=== PATIENT | male | born 1960 | race Caucasian/White ===

== ENCOUNTER 2024-01-05 09:15 | Inpatient (IN) ==
--- NOTE | 2024-01-05 09:27 | Emergency Department Note ---
Impression & Plan Acute renal failure, Pleural effusion, right, Sepsis, Atrial fibrillation with rapid ventricular response, Elevated troponin ED Provider Note NAME: MAXIMO [id number] BRINDA AGE: 63 SEX: M : 1960 ARRIVES VIA: Ambulance INFORMANT: Patient, EMS ED PROVIDER(S): Aguilar Jeong DO CHIEF COMPLAINT: Weakness HPI: The patient is a 63-year-old male who presented to the emergency department for generalized weakness. The patient was noted to have shortness of breath and palpitations. He states that the symptoms began over the course the last few days. He has no history of atrial fibrillation. He denies having any black or tarry stools. He denies having any chest pain or difficulty breathing. The patient was found to be in rapid atrial fibrillation. He was treated with normal saline at 1500 mL prior to arrival. His blood pressure was low initially but is improved since the IV fluid bolus. ROS: See above HPI for pertinent positives & negatives. A total of 10 systems reviewed and were otherwise negative. PAST MEDICAL HISTORY: See Below PAST SURGICAL HISTORY: See Below FAMILY HISTORY: See Below SOCIAL HISTORY: See Below HOME MEDICATIONS: See Below ALLERGIES: See Below VITALS: See Below PHYSICAL EXAMINATION: GENERAL: Patient is awake alert in no acute distress patient is resting comfortably and showing no signs of anxiety EYES: The conjunctivae are clear. The pupils are round and reactive. EARS, NOSE, MOUTH AND THROAT: The nose is without any evidence of any deformity. Mucous membranes are dry. NECK: The neck is nontender and supple. RESPIRATORY: Normal respiratory effort is noted there is no evidence of wheezing rhonchi or rales CARDIOVASCULAR: Regular rate and rhythm noted there no murmurs rubs or gallops normal S1 normal S2. GASTROINTESTINAL: The abdomen is soft. Abdomen is nontender. MUSCULOSKELETAL/EXTREMITIES: There is no evidence of gross deformity full range of motion is noted in the hips and shoulders. SKIN: There is no obvious evidence of any rash. There are no petechiae, pallor or cyanosis noted. NEUROLOGIC: Patient is awake alert and oriented x3 MEDICAL DECISION MAKING: The patient is a 63-year-old male who presented to the emergency department for an evaluation of fast heart rate and hypotension. The patient was treated with multiple fluid boluses in the emergency department. He was treated with ideal body weight IV fluids for sepsis resuscitation plus excess fluids because of an elevated lactate level. I discussed the patient's laboratory and radiographic studies with him. He was found to have an elevated white blood cell count. He was treated with IV antibiotics. Chest x-ray showed a large right pleural effusion. This could also represent an infiltrate. The patient did not have any abdominal pain on physical exam. EKG showed nonspecific changes and troponin was elevated. I discussed the patient's condition with the on-call [facility]ist. They have agreed to evaluate the patient in the emergency department for further management and disposition. Vital signs continue to improve while he was in the emergency department. Triage Nursing notes reviewed. Prior medical records reviewed Vital Signs: reviewed and remarkable for tachycardia and initial hypotension. Differential diagnosis: Infection, dehydration, metabolic abnormality, hypo/hyperglycemia, electrolyte disturbance, anemia, hypoxia, cardiac sources, intracerebral event, toxicologic, neurologic, as well as other pathologies. ER treatment provided: See below Diagnostics interpreted by me: ECG: EKG was obtained in the emergency department. My interpretation is atrial fibrillation with RVR at 126 bpm. There were no PVCs noted. Nonspecific ST segment abnormalities were noted. No previous tracing was available in our facility. An EKG that was done at [place] was reviewed. My interpretation is atrial fibrillation with RVR at [address] segment abnormalities were noted. This compares similar to the tracing obtained in the emergency department. Cardiac Monitoring: An order was placed for continuous cardiac monitoring. The monitor shows a rate of 128 bpm with atrial fibrillation and RVR. Laboratory studies: As stated above and show below. Imaging studies: See below. Radiographic imaging was reviewed by myself Consultation(s): I discussed this case with Loyd who is [facility] for [facility]. ED COURSE: Procedures: none Critical Care: I have personally spent greater than 45 minutes of critical care time in the direct management of this patient. This includes bedside care, interpretation of diagnostic studies, and testing, discussion with consultants, patient, and family members, and other required patient management activities. This 45 minutes is in excess of all separately billable procedures. Past Med/Surg History Problem List (Updated 01/05/24 @ 12:46 by Aguilar Jeong DO) Acute renal failure (Acute) Pleural effusion, right (Acute) Adjustment disorder DM II (diabetes mellitus, type II), controlled Acute renal failure Elevated troponin (Acute) Atrial fibrillation with rapid ventricular response (Acute) High anion gap metabolic acidosis Sepsis (Acute) Medical History Anxiety disorder Type 2 diabetes mellitus Social History Smoking Status: Former smoker Preferred Language: Qatari Feels Safe at Home: Yes Results & Data (ED) Vital Signs Vital Signs - 24 hr 01/05/24 09:27 01/05/24 09:36 01/05/24 09:36 Pulse Rate 129 H 96 H Pulse Rate [Apical] Respiratory Rate 18 18 Blood Pressure [Left Arm] Blood Pressure Mean [Left Arm] Pulse Oximetry 96 Oxygen Delivery Method Room Air Sepsis Recent Fever Within 48 Hours Sepsis New/Unexplained Change in Mental Status Sepsis Action Taken by Nursing 01/05/24 09:37 01/05/24 09:48 01/05/24 09:48 Pulse Rate Pulse Rate [Apical] 128 H Respiratory Rate 18 12 Blood Pressure [Left Arm] 123/67 Blood Pressure Mean [Left Arm] 85 Pulse Oximetry 93 Oxygen Delivery Method Room Air Room Air Sepsis Recent Fever Within 48 Hours No Sepsis New/Unexplained Change in Mental Status N/A Sepsis Action Taken by Nursing No Action Required Home Medications Current Medication List: was personally reviewed by me Laboratory Data Attestation: I reviewed the patient's lab results. 01/05/24 09:32 01/05/24 09:32 Lab Results 01/05/24 01/05/24 01/05/24 Range/Units 09:32 09:45 09:54 WBC 20.11 H (4.8-10.8) K/ul RBC 4.11 L (4.70-6.10) M/uL Hgb 12.0 L (14.0-18.0) g/dl Hct 35.8 L (42.0-52.0) % MCV 87.1 (80.0-100.0) fL MCH 29.2 (25.0-34.0) pg MCHC 33.5 (32.0-36.0) g/dL RDW Std Deviation 42.2 (36.4-46.3) fL RDW Coeff of Aly 13.3 (11.5-14.5) % Plt Count 356 (130-400) K/uL MPV 10.1 (9.4-12.4) fL Immature Gran % (Auto) 1.7 % Neut % (Auto) 87.6 % Lymph % (Auto) 4.8 % [place] % (Auto) 5.8 % Eos % (Auto) 0.0 % Baso % (Auto) 0.1 % Neut # (Auto) 17.60 H (1.40-6.50) K/uL Lymph # (Auto) 0.97 L (1.20-3.40) K/uL [place] # (Auto) 1.17 H (0.11-0.59) K/uL Eos # (Auto) 0.01 (0.00-0.50) K/uL Baso # (Auto) 0.02 (0.00-0.20) K/uL Immature Gran # (Auto) 0.34 H (0.01-0.20) K/uL PT 12.5 H (9.0-12.0) Seconds INR 1.2 H (0.9-1.1) APTT 26 (21-31) Seconds PTT Ratio 1.0 VBG pH 7.36 (7.36-7.41) VBG pCO2 25 L (38-50) mmHg VBG pO2 21 mmHg VBG HCO3 14 mmol/L VBG O2 Saturation < 60.0 % VBG Base Excess -9.6 mEq/L Sodium 133 L (136-145) mmol/L Potassium 4.6 (3.5-5.1) mmol/L Chloride 94 L (98-107) mmol/L Carbon Dioxide 12 L (21-32) mmol/L Anion Gap 27 H (3-11) BUN 74 H (6-23) mg/dl Creatinine 3.98 H (0.6-1.4) mg/dl Est Cr Clr Drug Dosing 17.7 ml/min Est GFR ( Amer) 17.2 ml/min Est GFR (Non-Af Amer) 14.8 ml/min BUN/Creatinine Ratio 18.6 (10-20) Glucose 253 H (70-99(Fasting)) mg/dl Lactate 10.0 H* (0.4-2.0) mmol/L Calcium 8.1 L (8.6-10.3) mg/dl Magnesium 2.7 H (1.7-2.4) mg/dl Total Bilirubin 0.9 (0.2-1.0) mg/dl Direct Bilirubin 0.3 H (0-0.2) mg/dl AST 132 H (13-39) U/L ALT 44 (7-52) U/L Alkaline Phosphatase 117 H (34-104) U/L Troponin I High Sens 57.7 H* (0-20) pg/ml Total Protein 6.6 (6.0-8.3) gm/dl Albumin 2.6 L (3.4-5.0) gm/dl SARS-CoV-2 (PCR) NEGATIVE (Negative) Influenza Type A (PCR) Negative (Neg) Influenza Type B (PCR) Negative (Neg) RSV (RT-PCR) Negative (Neg) Administered Medications Discontinued Medications Sodium Chloride (Nss) 1,000 mls @ 999 mls/hr IV .Q1H1M ONE Stop: 01/05/24 10:23 Last Admin: 01/05/24 09:51 Dose: 999 mls/hr Documented By: TOOTIE Sodium Chloride (Nss) 1,000 mls @ 999 mls/hr IV .Q1H1M ONE Stop: 01/05/24 10:55 Last Admin: 01/05/24 10:11 Dose: 999 mls/hr Documented By: TOOTIE Piperacillin Sod/Tazobactam Sod (Zosyn) 4.5 gm in 100 mls @ 200 mls/hr IV NOW ONE Stop: 01/05/24 10:24 Last Admin: 01/05/24 10:11 Dose: 200 mls/hr Documented By: TOOTIE Imaging Data Attestation: I personally reviewed and interpreted this imaging study as follows: My Impression: 1 view chest x-ray was obtained in the emergency department. My interpretation is large right pleural effusion, final report below. Radiologist's Impression: Chest X-Ray 01/05/24 09:23 XR chest 1V portable CLINICAL HISTORY: Sepsis TECHNIQUE: Single frontal radiograph of the chest was obtained. Comparison: None available at the time of this dictation. FINDINGS: No lines and tubes are seen. Cardiomegaly is noted. Right sided airspace opacities are seen. Moderate right pleural effusion is seen. IMPRESSION: Moderate right pleural effusion is seen. Right airspace opacity is seen likely representing atelectasis with or without superimposed aspiration/pneumonia. ACT 112: Negative or not required by law. Electronically signed by: Andrea Guillermo M.D. 01/05/2024 9:41 AM Discharge Plan Visit Data Chief Complaint: Cardiac Assessment ED Provider: Aguilar Jeong Discharge Problem: Acute renal failure, Pleural effusion, right, Sepsis, Atrial fibrillation with rapid ventricular response, Elevated troponin Patient Disposition: Being Evaluated by Hospitalist Discharge Problem: Acute renal failure Qualifiers: Acute renal failure type: unspecified Qualified Code(s): N17.9 - Acute kidney failure, unspecified Sepsis Qualifiers: Sepsis type: sepsis due to unspecified organism Sepsis acute organ dysfunction status: unspecified Qualified Code(s): A41.9 - Sepsis, unspecified organism
--- NOTE | 2024-01-05 09:43 | XRay Report ---
XR chest 1V portable CLINICAL HISTORY: Sepsis TECHNIQUE: Single frontal radiograph of the chest was obtained. Comparison: None available at the time of this dictation. FINDINGS: No lines and tubes are seen. Cardiomegaly is noted. Right sided airspace opacities are seen. Moderate right pleural effusion is seen. IMPRESSION: Moderate right pleural effusion is seen. Right airspace opacity is seen likely representing atelectas is with or without superimposed aspiration/pneumonia. ACT 112: Negative or not required by law. Electronically signed by: Andrea Guillermo M.D. 01/05/2024 9:41 AM
[2024-01-05] MEDS: SODIUM CHLORIDE 0.9% 1,000 ML IV ONE ×3 (09:51→13:11)
[2024-01-05 09:55] LABS: Basophils # (auto) 0.02 K/uL (0.00-0.20); Basophils % (auto) 0.1 %; Eosinophils # (auto) 0.01 K/uL (0.00-0.50); Hematocrit (blood only) 35.8 % (42.0-52.0); Immature Granulocytes # (auto) 0.34 K/uL (0.01-0.20); Immature Granulocytes % (auto) 1.7 %; Lymphocytes # (auto) 0.97 K/uL (1.20-3.40); Lymphocytes % (auto) 4.8 %; Mean Corpuscular Hemoglobin 29.2 pg (25.0-34.0); Mean Corpuscular Hgb Conc 33.5 g/dL (32.0-36.0); Mean Corpuscular Volume 87.1 fL (80.0-100.0); Mean Platelet Volume 10.1 fL (9.4-12.4); Monocytes # (auto) 1.17 K/uL (0.11-0.59); Monocytes % (auto) 5.8 %; Neutrophils % (auto) 87.6 %; Platelet Count 356 K/uL (130-400); RDW Coefficient of Variation 13.3 % (11.5-14.5); RDW Standard Deviation 42.2 fL (36.4-46.3); Red Blood Count 4.11 M/uL (4.70-6.10); White Blood Count 20.11 K/ul (4.8-10.8)
[2024-01-05 10:08] LABS: Base Excess VBG -9.6 mEq/L; HCO3 VBG 14 mmol/L; Oxygen Saturation VBG < 60.0 %; PCO2 VBG 25 mmHg (38-50); PO2 VBG 21 mmHg; pH VBG 7.36 (7.36-7.41)
[2024-01-05] MEDS: PIPERACILLIN/TAZOBACTAM 4.5 GM/100 ML BAG IV ONE (10:11)
[2024-01-05 10:21] LABS: INR 1.2 (0.9-1.1); Partial Thromboplastin Time 26 Seconds (21-31); Prothrombin Time 12.5 Seconds (9.0-12.0)
[2024-01-05 10:30] LABS: Albumin Level 2.6 gm/dl (3.4-5.0); BUN Creatinine Ratio 18.6 (10-20); Bilirubin,Total 0.9 mg/dl (0.2-1.0); Calcium 8.1 mg/dl (8.6-10.3); Creatinine Clr Calc Pharmacy 17.7 ml/min; Est GFR (African American) 17.2 ml/min; Est GFR (Non-African American) 14.8 ml/min; Magnesium 2.7 mg/dl (1.7-2.4); Potassium 4.6 mmol/L (3.5-5.1); Total Protein 6.6 gm/dl (6.0-8.3)
[2024-01-05 10:39] LABS: Influenza A virus by PCR Negative (Neg); Influenza B virus by PCR Negative (Neg); RSV by PCR Negative (Neg); SARS CoV2 RNA(COVID-19) Ceph NEGATIVE (Negative)
[2024-01-05 10:41] LABS: Troponin I High Sensitivity 57.7 pg/ml (0-20)
[2024-01-05 10:45] LABS: Bilirubin Direct 0.3 mg/dl (0-0.2)
--- NOTE | 2024-01-05 11:13 | History & Physical Report ---
Date of Service January 05, 2024 Assessment & Plan (1) Sepsis: Plan: -Admit to the PCU on tele and pulse oximetry -Currently hemodynamically stable, with HR in the low 100's, and otherwise stable at the time of the admission -Presented to the [facility] ED from [facility] due to multiple days of poor oral intake, hyperglycemia, and generalized weakness this am -Found to be in new onset atrial fibrillation with HR in the 120's, with WBC of 20, with possible right airspace opacity on CXR -Initial lactate of 10 -->4.2 after 3.5 L NSS given between EMS and the ED -Procal is currently in process -Cannot rule out intra abdominal sources of infection at this time >Will obtain STAT CT of the abd/pelvis wo con for further assessment >No meningitic symptoms >No signs of skin infection -Patient has been unable to give a urine sample at this time, bladder scanned for 200 mL at the time of admission, will obtain UA when patient is able to give sample or with straight cath if needed -S/P one dose of Zosyn in the ED, will continue with Zosyn for now -Follow blood cultures obtained in the ED -Will be starting IV heparin drip for new onset afib/covers DVT PPX as well -NPO until CT of the abd/pelvis is back -Will repeat CMP, mag, and obtain ABG in approximately 3 hours for re- evaluation, if he is not improving or becoming more acidic will speak with the Fast Food Attendant -AM CBC, CMP, mag, PT/INR (2) High anion gap metabolic acidosis: Plan: -AG of 27, bicarb of 12 -Initial lactate of 10 -VBG in the ED with pH of 7.36, pCO2 of 25, and pO2 of 21 -Likely due to sepsis, dehydration, and acute renal failure -Will follow UA when obtained to monitor for signs of ketosis -Patient has received approximately 3.5L NSS between EMS transport and while in the ED -Repeat lactate improving to 4.2 -Will hold additional IV fluids until CT of the abd/pelvis is read as we do not want to volume overload him if he is in acute renal failure -Will continue to monitor lactate until he is stable (3) Acute renal failure: Plan: -Cr of 3.98 today, last base is 0.95 as of 2021 per [facility]'s labs -Patient had not been able to urinate since arrival, confirms this is not normal for him -Bladder scan at the time of admission was 200 cc -Electrolytes are currently stable, no indication for emergent/urgent dialysis at the time of admission -Patient did have some recent right flank pain with possible right CVA tenderness on exam -Will obtain stat CT of the abd/pelvis wo con at the time of admission to monitor for obstruction -Will monitor intake/output q6h -Will hold additional IV fluids until CT of the abd/pelvis is read in case he has an obstruction -If needed, will speak to the patient again regarding possible cali placement -Nephrology consult placed -Avoid nephrotoxic agents -Will monitor repeat labs this afternoon -Will trend BMP, mag, and blood gases overnight if not improving on repeat this afternoon (4) Atrial fibrillation with rapid ventricular response: Plan: -Patient found to be in new-onset afib RVR with HR in the 120's on arrival -Potassium of 4.6, mag of 2.7 -Will add on TSH level -Likely due to his acute illness and renal failure -HR is currently stable in the low 100's at the time of exam, will not be overly aggressive with rate reduction on admission to avoid suppressing his reactive tacycardia with sepsis -Will start PRN 5 mg IV Lopressor q5m PRN sustained HR > 130 BPM for now, max 3 doses -Patient will be started on low dose, weight based heparin drip wo bolus for anticoagulation -Will order Cardiology consult and TTE on admission (5) Pleural effusion, right: Plan: -Patient noted to have a moderate right pleural effusion on CXR today -Possible associated airspace opacity as well -Currently in no respiratory distress and stable on RA -Unsure of etiology at this time, will place Pulmonology consult for assistance with ongoing workup/treatment -Continue incentive spirometry,flutter therapy, prn O2 to keep SpO2 at or above 94% (6) Elevated troponin: Plan: -Initial high sen trop elevated at 57 -Patient is without chest pain or acute ST segment/T-wave changes on ECG -Likely due to demand with sepsis, acute renal failure, and afib RVR on arrival -2 hour repeat high sen trop is in process -Will continue to monitor on tele, continue to trend high sen trop q6h overnight -Will follow cardiology consult and TTE ordered on admission (7) DM II (diabetes mellitus, type II), controlled: Plan: -Normally takes 15 units SQ Novolin R in the am with SSI -Did have his am dose of basal insulin prior to arrival -Will start q6h BSG checks, goal is 110-160 for now -Start CF of 50 and CR 15 for now -Will hold basal insulin with acute renal failure -Keeping NPO until CT of abd/pelvis is read -Pharmacy glycemic consult has been place due to patient's multiple acute abnormalities on admission Plan The patient was discussed with Dr. Trinidad at the time of the admission History of Present Illness Chief Complaint: Generalized weakness, SOB Primary Care Provider: [facility] Scotty is a 63-year-old male inmate at [facility] with a PMH significant for DMII and adjustment disorder who presented to the [facility] ED on 01/05/2024 with complaints of generalized weakness and shortness of breath. On arrival to the emergency department he was noted to be tachycardic with heart rate in the 120's but otherwise stable. Labs were significant for a leukocytosis of 20 with neutrophil predominance of 17, INR 1.2, VBG pH of 7.36 With pCO2 25-21, creatinine of 3.98 (last known baseline per [facility] is 0.95 as of 2021), BUN of 74, anion gap of 27 with bicarb of 12, potassium and sodium within normal limits, initial lactate of 10, magnesium 2.7, AST of 32, alk phos 117, initial high-sensitivity troponin COVID- 19/influenza/RSV screens negative. In the emergency department the patient was given 2 L normal saline and a dose of Zosyn. Patient was lying in bed in no acute distress at the time of exam. States that he has been having increased glucose levels and poor oral intake over the past 72 hours. [place] generally weak this a.m., also noted shortness of breath. When asked, he denies recent fever/chills, chest pain, productive cough, nausea/vomiting, abdominal pain, dysuria, hematuria, diarrhea bloody bowel lower extremity swelling, and recent trauma. He did note right back/flank pain yesterday,he is currently asymptomatic. He denies a previous history of atrial fibrillation, and notes that normally he is able to urinate without issue but has noticed that it is is not have the urge to void today. He denies history of major bleeding and is in agreement with IV heparin drip atrial fibrillation. I called and spoke to the infirm[facility] at the [facility], they confirmed that his past medical history consists of type 2 diabetes mellitus and adjustment disorder. They state that this morning after receiving his insulin, he became very weak and pale which is why he was brought to the emergency department. Per the records, his baseline creatinine is 0.95 as of 2021. Please refer to Dr. Trinidad's attestation for any changes to treatment plan. Allergies Allergy/AdvReac Type Severity Reaction Status Date / Time Fish Containing Products Allergy Anaphylaxis Verified 01/05/24 12:50 metformin AdvReac Anaphylaxis Verified 01/05/24 12:48 Home Medications Medication Instructions Recorded Confirmed Type Novolin R 100u 15 unit subcut DAILY 01/05/24 01/05/24 History Novolin R Regular U100 Insulin 1 unit subcut .SLIDING SCALE PRN 01/05/24 01/05/24 History Other aspirin 81 mg tablet,delayed 81 mg PO DAILY 01/05/24 01/05/24 History release mirtazapine 30 mg tablet 30 mg PO HS 01/05/24 01/05/24 History rosuvastatin 20 mg tablet 20 mg PO DAILY 01/05/24 01/05/24 History Past Med/Surg History Problem List (Updated 01/05/24 @ 19:07 by Kaushik Whatley MD) Urinary retention Acute renal failure (Acute) Pleural effusion, right (Acute) Adjustment disorder DM II (diabetes mellitus, type II), controlled Acute renal failure Elevated troponin (Acute) Atrial fibrillation with rapid ventricular response (Acute) High anion gap metabolic acidosis Sepsis (Acute) Medical History Anxiety disorder Type 2 diabetes mellitus Social History Smoking Status: Former smoker Tobacco Type: Cigarettes Second Hand Exposure: Yes; Hx Alcohol Use: No Hx Substance Use: No Preferred Language: Citizen Of [place] Current Living Situation: Other Current Living Situation Comment: [facility] Feels Safe at Home: Yes Physical Exam Physical Exam: Physical Exam: General: In no acute distress, stated age, ill appearing but non-toxic a ppearing HEENT: Normocephalic, atraumatic, no scleral icterus, pupils around round, symmetrical, and reactive to light, dry mucus membranes, no jvd, trachea midline, no thyromegaly Chest/Pulm: No respiratory distress, symmetrical chest expansion, decreased breath sounds in the right lower/mid lung erickson but is otherwise CTA throughout Cardiac: irregular rate and rhythm, no murmurs noted Abdomen: Negative for ascites and bruising, normoactive bowel sounds, soft, mildly tender in the RUQ with equivocal moran's sign : Patient with + right CVA tenderness,negative left Musculoskeletal: Symmetrical and without signs of acute trauma, upper and lower extremities with full ROM, no atrophy, spasticity, or flaccidity Extremities: Radial, dorsalis pedis, and posterior tibial pulses are intact and symmetrical, no edema noted in the BL LE's Skin: Warm, dry, no rashes , lesions, or scars noted Neuro: Alert and oriented to person, place, month, year, and president, no focal defects, no tremors noted Psych: No acute distress, polite, calm and cooperative during the exam Results & Data Results & Data Vital Signs (Past 12 Hours) Vital Signs Pulse Pulse Resp BP Pulse Ox O2 Del Method 01/05/24 09:48 128 H 12 123/67 93 Room Air 01/05/24 09:48 Room Air 01/05/24 09:37 18 01/05/24 09:36 18 01/05/24 09:36 96 H 18 96 Room Air 01/05/24 09:27 129 H Laboratory Results Abnormal lab results 01/05/24 01/05/24 01/05/24 Range/Units 09:32 09:54 11:45 WBC 20.11 H (4.8-10.8) K/ul RBC 4.11 L (4.70-6.10) M/uL Hgb 12.0 L (14.0-18.0) g/dl Hct 35.8 L (42.0-52.0) % Neut # (Auto) 17.60 H (1.40-6.50) K/uL Lymph # (Auto) 0.97 L (1.20-3.40) K/uL [place] # (Auto) 1.17 H (0.11-0.59) K/uL Immature Gran # (Auto) 0.34 H (0.01-0.20) K/uL PT 12.5 H (9.0-12.0) Seconds INR 1.2 H (0.9-1.1) VBG pCO2 25 L (38-50) mmHg Sodium 133 L (136-145) mmol/L Chloride 94 L (98-107) mmol/L Carbon Dioxide 12 L (21-32) mmol/L Anion Gap 27 H (3-11) BUN 74 H (6-23) mg/dl Creatinine 3.98 H (0.6-1.4) mg/dl Glucose 253 H (70-99(Fasting)) mg/dl Lactate 10.0 H* 4.2 H* (0.4-2.0) mmol/L Calcium 8.1 L (8.6-10.3) mg/dl Magnesium 2.7 H (1.7-2.4) mg/dl Direct Bilirubin 0.3 H (0-0.2) mg/dl AST 132 H (13-39) U/L Alkaline Phosphatase 117 H (34-104) U/L Troponin I High Sens 57.7 H* (0-20) pg/ml Albumin 2.6 L (3.4-5.0) gm/dl Diagnostic Findings Chest X-Ray 01/05/24 09:23 XR chest 1V portable CLINICAL HISTORY: Sepsis TECHNIQUE: Single frontal radiograph of the chest was obtained. Comparison: None available at the time of this dictation. FINDINGS: No lines and tubes are seen. Cardiomegaly is noted. Right sided airspace opacities are seen. Moderate right pleural effusion is seen. IMPRESSION: Moderate right pleural effusion is seen. Right airspace opacity is seen likely representing atelectasis with or without superimposed aspiration/pneumonia. ACT 112: Negative or not required by law. Electronically signed by: Andrea Guillermo M.D. 01/05/2024 9:41 AM ECG Additional Comments: Atrial fibrillation with rapid ventricular response Low voltage QRS Cannot rule out Anterior infarct , age undetermined Abnormal ECG No previous ECGs available Code Status & VTE Plan Code Status Full code VTE Prophylaxis Plan VTE Prophylaxis will be ordered: Yes Critical Care Time Critical Care Time: Yes Total Critical Care Time: 48 120 Supervising Physician Co-Signing Physician Notes During face to face encounter, I obtained a history and physical examination, discussed plan of care with patient and answered any questions. I discussed plan of care with USHA Velez. I reviewed above note and agree with it except for the following: Patient will be admitted to the ICU for concern over possible empyema. Patient placed on IV antibiotics: zosyn Patient with a fib RVR, high anion gap metabolic acidosis. Patient with acute hypoxic respiratory failure. Plan is as discussed above. Please refer to orders for further planning. 48 minutes of critical care time spent in the management clinical coronation care of this patient today this critical care time spent independent of and in addition to any other time or critical care time any other practitioner today's date. PG Care Time/CCT Total # of Minutes Spent Total Time Spent with Patient: Total time spent is greater than 50% in coordination of care (as documented) at patient's floor/unit and/or counseling patient: Critical Care Time: Yes Total Critical Care Time: 48 [place] [address] INT INP/OBS CARE 3/75MIN (25 - SIGNIFICANT, SEPARATELY IDENTIFIABLE ) Patient Type New Medical Decision Making High Complexity Diagnoses Sepsis A41.9 High anion gap metabolic acidosis E87.29 Acute renal failure N17.9 Atrial fibrillation with rapid ventricular response I48.91 Pleural effusion, right J90 Elevated troponin R79.89 DM II (diabetes mellitus, type II), controlled E11.9 Additional Codes Critical Care Time - Critical Care Time: Yes ([id number])
[2024-01-05] MEDS ORDERED: CARBOHYDRATES FOR HYPOGLYCEMIA PO PRN (11:21)
[2024-01-05] MEDS ORDERED: PHARMACY GLYCEMIC MGMT CONSULT PRN (11:21)
[2024-01-05] MEDS ORDERED: DEXTROSE 50% 50 ML SYRINGE IV PRN (11:21)
[2024-01-05] MEDS ORDERED: GLUCOSE 10 TAB/TUBE PO PRN (11:21)
[2024-01-05] MEDS ORDERED: GLUCAGON FOR INJ 1 MG VIAL SQ PRN (11:21)
[2024-01-05] MEDS ORDERED: GLUCOSE 40% GEL 15 GM TUBE PO PRN (11:21)
[2024-01-05] MEDS ORDERED: Patient's ALLERGY Info needs ENTERED SCH (11:45)
[2024-01-05] MEDS ORDERED: METOPROLOL TARTRATE 1 MG/ML VIAL IV PRN (11:48)
[2024-01-05] MEDS: Heparin IV Adult Wt-Based Low-Dose *NO* INITIAL Bolus Protocol IV SCH (12:54)
[2024-01-05] MEDS: HEPARIN SODIUM/DEXTROSE 25,000 UNITS/500 ML BAG IV SCH (13:11)
--- NOTE | 2024-01-05 13:23 | CT Scan Report ---
CT OF THE ABDOMEN AND PELVIS WITHOUT CONTRAST CLINICAL HISTORY: Renal failure. Sepsis. COMPARISON STUDY: No previous studies for comparison. TECHNIQUE: Axial images of the abdomen and pelvis were obtained without IV contrast. Images were revi ewed in the axial, sagittal, and coronal planes. Automated exposure control was utilized for the meri dy. A dose lowering technique was utilized adhering to the principles of ALARA. FINDINGS: Extensive coronary artery calcification is incidentally noted. A moderate to large loculate d right pleural effusion is partially imaged on this examination. Right lower lobe airspace opacity w ith significant volume loss is present. Hyperdense material within the right middle lobe and right lo wer lobe is noted. There are mild airspace opacities within the left lower lobe. Evaluation of the ab domen and pelvis is suboptimal as unenhanced exam. No pneumatosis, free air or portal venous gas is p resent. Unenhanced images of the liver, spleen, adrenal glands and pancreas are unremarkable. The kolton dder slightly distended. There is no pericholecystic infiltration. There is mild symmetric bilateral perinephric. No urinary calculi are present. There is no hydronephrosis. Large amount of stool within the rectum is present. There is no evidence for a bowel obstruction. There is mild body wall edema. Mesenteric edema is also present. There is no lymphadenopathy. No fluid collections are present. IMPRESSION: 1. Moderate to large loculated right pleural effusion with right lower lobe airspace opacity. The fin dings favor pneumonia or aspiration pneumonitis with parapneumonic effusion. An empyema cannot be exc luded. 2. Large amount of stool within the rectum. No evidence for a bowel obstruction. 3. No urinary calculi or hydronephrosis. 4. Mildly distended gallbladder. No definite CT evidence for acute cholecystitis. 5. Mild body wall and mesenteric edema. ACT 112: Negative or not required by law. Electronically signed by: Paulo Tellez M.D. 01/05/2024 1:22 PM
--- NOTE | 2024-01-05 13:54 | Pulmonary Consultation ---
Date of Consultation January 05, 2024 Assessment & Plan (1) Pleural effusion, right: 63 y/o male with PMH of DM2 and adjustment disorder admitted due to sepsis, acute renal failure and pleural effusion. 1. Pleural effusion: CT with findings of Moderate to large lobulated right pleural effusion with right lobe airspace opacity.Bed side ultrasound with findings of pleural effusion multiple septation. On the setting of sepsisand concern of empyema will proceed with chest tube today. Specimen was sent for Gram stain, culture, or pleural fluid chemistries. Chest tube was placed without complications, will keep suction Patient stable for downgrade to PCU History of Present Illness Attending Physician: Melecio Trinidad History of Present Illness Scotty is a 63 y/o male inmate at [facility] with PMH of DM2 and adjustment disorder who is admitted due to sepsis, new onset atrial fibrillation, renal failure and pleural effusion. Patient main complaint on arrival was generalized weakness and SOB. He was found with HR in the 120 but otherwise stable. CXR noted with moderate right pleural effusion. CT showed Moderate to large loculated right pleural effusion with right lower lobe airspace opacity. Patient on evaluation found awake in NAD, alert and oriented. Saturating at 94 in room air. Denied any chest pain or palpitation. Does refers some rhonchi while exhaling. SOB is improved compared from this morning. He still refers generalized weakness. Denied any past history of fluids on lungs. Denied any prev history of atrial fibrillation. Denied any major bleeding, or any anticoagulant medication. Allergies Allergy/AdvReac Type Severity Reaction Status Date / Time Fish Containing Products Allergy Anaphylaxis Verified 01/05/24 12:50 metformin AdvReac Anaphylaxis Verified 01/05/24 12:48 Home Medications Medication Instructions Recorded Confirmed Type Novolin R 100u 15 unit subcut DAILY 01/05/24 01/05/24 History Novolin R Regular U100 Insulin 1 unit subcut .SLIDING SCALE PRN 01/05/24 01/05/24 History Other aspirin 81 mg tablet,delayed 81 mg PO DAILY 01/05/24 01/05/24 History release mirtazapine 30 mg tablet 30 mg PO HS 01/05/24 01/05/24 History rosuvastatin 20 mg tablet 20 mg PO DAILY 01/05/24 01/05/24 History Patient History Medical History Anxiety disorder Type 2 diabetes mellitus Social History Smoking Status: Former smoker Preferred Language: Citizen Of [place] Feels Safe at Home: Yes Review of Systems Review of Systems: as per hpi Results & Data Results & Data Vital Signs (Past 12 Hours) Vital Signs Pulse Pulse Resp BP Pulse Ox O2 Del Method 01/05/24 09:48 128 H 12 123/67 93 Room Air 01/05/24 09:48 Room Air 01/05/24 09:37 18 01/05/24 09:36 18 01/05/24 09:36 96 H 18 96 Room Air 01/05/24 09:27 129 H PG Care Time/CCT Total # of Minutes Spent Total Time Spent with Patient: Total time spent is greater than 50% in coordination of care (as documented) at patient's floor/unit and/or counseling patient: Coding Diagnoses Pleural effusion, right J90
--- NOTE | 2024-01-05 14:27 | XCELERA ---
[id number]
[2024-01-05] MEDS: INSULIN ASPART PER UNIT CHARGE SC SCH ×3 (14:29→21:02)
[2024-01-05] MEDS: INSULIN ASPART PER UNIT CHARGE SC ONE (14:33)
--- NOTE | 2024-01-05 14:45 | Pharmacy Report ---
Pharmacy Glycemic Short Note 2 - Date of Service January 05, 2024 - Glycemic Short BSG Results (Last 24 hours): 01/05/24 01/05/24 01/05/24 09:32 12:41 14:18 Glucose 253 H POC Glucose 290 H 228 H OUTPATIENT ANTIDIABETIC REGIMEN: * Novolin R 15 units SQ daily, Novolin R SSI ASSESSMENT: * 63 year old admitted with hyperglycemia, poor oral intake, MARY, concerns for sepsis/dehydration, metabolic acidosis, afib. Concerns for pneumonia noted on CT. Scr up to 3.98 mg/dL - per notes, baseline Scr closer to 0.95 per records 2021. Elevated anion gap on admission, provider notes report likely related to acute renal failure. Provider repeating labs again this afternoon, still pending. * DM2 diabetic - pharmacy consulted for glycemic control. Patient NPO - reasonable to start novolog for now and see how BSGs trend. Unknown A1c - will order for tomorrow AM. Given 5 units SQ insulin at lunch time, will continue with novolog Q6 hour checks. PLAN FOR INPATIENT GLYCEMIC CONTROL: * Hold outpatient oral diabetes medications * Basal insulin * Lantus - hold * Bolus insulin * NovoLog per scale ACHS or Q6hrs while NPO * Goal Range: Low 110 mg/dL - High 140 mg/dL * Correction Factor: 35 mg/dL/unit * Nutritional / Prandial insulin per carb ratio of 1 unit per 15 grams CHO consumed
[2024-01-05 15:08] LABS: HCO3 ABG 15 mmol/L (19-24); Oxygen Saturation ABG 97.6 % (90-95); PCO2 ABG 23 mmHg (35-46); PO2 ABG 71 mmHg (80-95); pH ABG 7.43 (7.35-7.45)
[2024-01-05 15:26] LABS: Albumin Level 2.9 gm/dl (3.4-5.0); Bilirubin,Total 0.8 mg/dl (0.2-1.0); Calcium 7.4 mg/dl (8.6-10.3); Potassium 3.6 mmol/L (3.5-5.1)
[2024-01-05 15:32] LABS: Albumin Globulin Ratio 0.8 (0.9-2); Creatinine Clr Calc Pharmacy 19.9 ml/min; Est GFR (African American) 19.8 ml/min; Est GFR (Non-African American) 17.1 ml/min; Globulin 3.8 gm/dl (2.5-4.0); Total Protein 6.7 gm/dl (6.0-8.3)
--- NOTE | 2024-01-05 16:29 | Nephrology Consultation ---
Date of Consultation January 05, 2024 Assessment & Plan (1) Acute renal failure: * MARY likely ATN related to sepsis, pneumonia, new onset atrial fibrillation. No recent exposure to known nephrotoxic agents. 01/[address] negative for obstruction * Patient has received volume resuscitation in EMD due to sepsis syndrome. He is hemodynamically stable * Electrolyte balance is acceptable. No acute indication for HD today * staff training and development manager to place Garcia catheter * Will order urinalysis w/ microscopy * Monitor PRP, UO (2) Sepsis: * Probable RLL pneumonia w/ parapneumonic effusion * Await blood cultures * Consider thoracentesis * On empiric IV Zosyn (3) Atrial fibrillation with rapid ventricular response: * HR now controlled w/ PRN IV Metoprolol * 01/04 Echocardiogram: LVEF 50-55%, normal LV wall motion, no significant valvular disease * Hemodynamically stable History of Present Illness Reason for Consultation: MARY Attending Physician: Melecio Trinidad History of Present Illness Mr. 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 Information for the HPI is obtained from direct patient interview and review of the EMR. HPI is summarized as follows: Mr. Islas has no prior h/o CKD. His baseline creatinine has been 0.9 (2021). His medical history is significant for AODM (diagnosed at 40 years of age) and anxiety disorder. He was admitted to [facility] earlier today for evaluation of generalized weakness, dyspnea and new onset atrial fibrillation. EMD evaluation revealed WBC 20K, Cr 3.98, HCO3 12, lactate 10. Testing for COVID, influenza and RSV were all negative. CXR revealed a moderate R pleural effusion and R airspace opacity c/w aspiration/pneumonia. CT of abdomen/pelvis without contrast reveals large loculated R pleural effusion w/RLL airspace opacity. There was mild perinephric fluid but no calculi or hydronephrosis. Echocardiogram revealed LVEF 50-55%, normal LV wall motion, no significant valvular disease. 2 L NS and IV Zosyn administered in the EMD. SBP has been 116-123 mm Hg. Pulmonology has placed a R PleurX catheter Allergies Allergy/AdvReac Type Severity Reaction Status Date / Time Fish Containing Products Allergy Anaphylaxis Verified 01/05/24 12:50 metformin AdvReac Anaphylaxis Verified 01/05/24 12:48 Home Medications Medication Instructions Recorded Confirmed Type Novolin R 100u 15 unit subcut DAILY 01/05/24 01/05/24 History Novolin R Regular U100 Insulin 1 unit subcut .SLIDING SCALE PRN 01/05/24 01/05/24 History Other aspirin 81 mg tablet,delayed 81 mg PO DAILY 01/05/24 01/05/24 History release mirtazapine 30 mg tablet 30 mg PO HS 01/05/24 01/05/24 History rosuvastatin 20 mg tablet 20 mg PO DAILY 01/05/24 01/05/24 History Patient History Medical History Anxiety disorder Type 2 diabetes mellitus Social History Smoking Status: Former smoker Preferred Language: Algerian Feels Safe at Home: Yes Review of Systems Constitutional: no fever Eyes: no problem reported Ear, Nose, Mouth, Throat: no problem reported Respiratory: no cough and no dyspnea Cardiovascular: no chest pain Gastrointestinal: no abdominal pain, no nausea, no vomiting and no diarr hea/loose stools Genitourinary: no dysuria or no hematuria Integumentary: no rash Physical Exam Constitutional: + thin; not in distress Eyes: PERRL, conjunctivae normal, anicteric sclerae ENMT: external ear and nose normal, oropharynx normal Neck: trachea midline, no thyromegaly Respiratory: Auscultation: + diminished lung sounds (R base. PleurX catheter in place) Cardiovascular: Rate/Rhythm: + irregularly irregular Gastrointestinal (Abdomen): normal bowel sounds, soft, nontender, no hepatosplenomegaly Skin: no rashes, warm and dry Neurologic: Speech / Cognition: normal speech and normal cognition Results & Data Vital Signs (Past 12 Hours) Vital Signs Pulse Pulse Resp BP BP Pulse Ox O2 Del Method 01/05/24 15:15 88 21 116/63 95 Room Air 01/05/24 14:00 63 18 96 Room Air 01/05/24 09:48 128 H 12 123/67 93 Room Air 01/05/24 09:48 Room Air 01/05/24 09:37 18 01/05/24 09:36 18 01/05/24 09:36 96 H 18 96 Room Air 01/05/24 09:27 129 H Laboratory Results Laboratory Results WBC 20.11 K/ul (4.8-10.8) H 01/05/24 09:32 RBC 4.11 M/uL (4.70-6.10) L 01/05/24 09:32 Hgb 12.0 g/dl (14.0-18.0) L 01/05/24 09:32 Hct 35.8 % (42.0-52.0) L 01/05/24 09:32 MCV 87.1 fL (80.0-100.0) 01/05/24 09:32 MCH 29.2 pg (25.0-34.0) 01/05/24 09:32 MCHC 33.5 g/dL (32.0-36.0) 01/05/24 09:32 RDW Std Deviation 42.2 fL (36.4-46.3) 01/05/24 09:32 RDW Coeff of Aly 13.3 % (11.5-14.5) 01/05/24 09:32 Plt Count 356 K/uL (130-400) 01/05/24 09:32 MPV 10.1 fL (9.4-12.4) 01/05/24 09:32 Immature Gran % (Auto) 1.7 % 01/05/24 09:32 Neut % (Auto) 87.6 % 01/05/24 09:32 Lymph % (Auto) 4.8 % 01/05/24 09:32 Boyle % (Auto) 5.8 % 01/05/24 09:32 Eos % (Auto) 0.0 % 01/05/24 09:32 Baso % (Auto) 0.1 % 01/05/24 09:32 Neut # (Auto) 17.60 K/uL (1.40-6.50) H 01/05/24 09:32 Lymph # (Auto) 0.97 K/uL (1.20-3.40) L 01/05/24 09:32 Boyle # (Auto) 1.17 K/uL (0.11-0.59) H 01/05/24 09:32 Eos # (Auto) 0.01 K/uL (0.00-0.50) 01/05/24 09:32 Baso # (Auto) 0.02 K/uL (0.00-0.20) 01/05/24 09:32 Immature Gran # (Auto) 0.34 K/uL (0.01-0.20) H 01/05/24 09:32 PT 12.5 Seconds (9.0-12.0) H 01/05/24 09:32 INR 1.2 (0.9-1.1) H 01/05/24 09:32 APTT 26 Seconds (21-31) 01/05/24 09:32 PTT Ratio 1.0 01/05/24 09:32 ABG pH 7.43 (7.35-7.45) 01/05/24 14:56 ABG pCO2 23 mmHg (35-46) L 01/05/24 14:56 ABG pO2 71 mmHg (80-95) L 01/05/24 14:56 ABG HCO3 15 mmol/L (19-24) L 01/05/24 14:56 ABG O2 Saturation 97.6 % (90-95) H 01/05/24 14:56 ABG Base Excess -7.0 mEq/L (-9-1.8) 01/05/24 14:56 VBG pH 7.36 (7.36-7.41) 01/05/24 09:54 VBG pCO2 25 mmHg (38-50) L 01/05/24 09:54 VBG pO2 21 mmHg 01/05/24 09:54 VBG HCO3 14 mmol/L 01/05/24 09:54 VBG O2 Saturation < 60.0 % 01/05/24 09:54 VBG Base Excess -9.6 mEq/L 01/05/24 09:54 Sodium 132 mmol/L (136-145) L 01/05/24 14:56 Potassium 3.6 mmol/L (3.5-5.1) D 01/05/24 14:56 Chloride 101 mmol/L (98-107) 01/05/24 14:56 Carbon Dioxide 15 mmol/L (21-32) L 01/05/24 14:56 Anion Gap 16 (3-11) H 01/05/24 14:56 BUN 74 mg/dl (6-23) H 01/05/24 14:56 Creatinine 3.53 mg/dl (0.6-1.4) H D 01/05/24 14:56 Est Cr Clr Drug Dosing 19.9 ml/min 01/05/24 14:56 Est GFR ( Amer) 19.8 ml/min 01/05/24 14:56 Est GFR (Non-Af Amer) 17.1 ml/min 01/05/24 14:56 BUN/Creatinine Ratio 21.0 (10-20) H 01/05/24 14:56 Glucose 231 mg/dl (70-99(Fasting)) H 01/05/24 14:56 POC Glucose 228 mg/dl (70-99) H 01/05/24 14:18 Lactate 4.2 mmol/L (0.4-2.0) H* 01/05/24 11:45 Calcium 7.4 mg/dl (8.6-10.3) L 01/05/24 14:56 Ionized Calcium 0.98 mmol/L (1.12-1.32) L 01/05/24 14:56 Magnesium 2.7 mg/dl (1.7-2.4) H 01/05/24 09:32 Total Bilirubin 0.8 mg/dl (0.2-1.0) 01/05/24 14:56 Direct Bilirubin 0.3 mg/dl (0-0.2) H 01/05/24 09:32 AST 139 U/L (13-39) H 01/05/24 14:56 ALT 44 U/L (7-52) 01/05/24 14:56 Alkaline Phosphatase 111 U/L (34-104) H 01/05/24 14:56 Troponin I High Sens 86.3 pg/ml (0-20) H* D 01/05/24 11:45 Total Protein 6.7 gm/dl (6.0-8.3) 01/05/24 14:56 Albumin 2.9 gm/dl (3.4-5.0) L 01/05/24 14:56 Globulin 3.8 gm/dl (2.5-4.0) 01/05/24 14:56 Albumin/Globulin Ratio 0.8 (0.9-2) L 01/05/24 14:56 Procalcitonin 58.50 ng/ml (0-0.5) H 01/05/24 09:32 TSH 1.526 uIu/ml (0.300-4.500) 01/05/24 11:45 SARS-CoV-2 (PCR) NEGATIVE (Negative) 01/05/24 09:45 Influenza Type A (PCR) Negative (Neg) 01/05/24 09:45 Influenza Type B (PCR) Negative (Neg) 01/05/24 09:45 RSV (RT-PCR) Negative (Neg) 01/05/24 09:45 Impressions Chest X-Ray 01/05/24 09:23 XR chest 1V portable CLINICAL HISTORY: Sepsis TECHNIQUE: Single frontal radiograph of the chest was obtained. Comparison: None available at the time of this dictation. FINDINGS: No lines and tubes are seen. Cardiomegaly is noted. Right sided airspace opacities are seen. Moderate right pleural effusion is seen. IMPRESSION: Moderate right pleural effusion is seen. Right airspace opacity is seen likely representing atelectasis with or without superimposed aspiration/pneumonia. ACT 112: Negative or not required by law. Electronically signed by: Andrea Guillermo M.D. 01/05/2024 9:41 AM Abdomen/Pelvis CT 01/05/24 11:36 CT OF THE ABDOMEN AND PELVIS WITHOUT CONTRAST CLINICAL HISTORY: Renal failure. Sepsis. COMPARISON STUDY: No previous studies for comparison. TECHNIQUE: Axial images of the abdomen and pelvis were obtained without IV contrast. Images were reviewed in the axial, sagittal, and coronal planes. Automated exposure control was utilized for the study. A dose lowering technique was utilized adhering to the principles of ALARA. FINDINGS: Extensive coronary artery calcification is incidentally noted. A moderate to large loculated right pleural effusion is partially imaged on this examination. Right lower lobe airspace opacity with significant volume loss is present. Hyperdense material within the right middle lobe and right lower lobe is noted. There are mild airspace opacities within the left lower lobe. Evaluation of the abdomen and pelvis is suboptimal as unenhanced exam. No pneumatosis, free air or portal venous gas is present. Unenhanced images of the liver, spleen, adrenal glands and pancreas are unremarkable. The bladder slightly distended. There is no pericholecystic infiltration. There is mild symmetric bilateral perinephric. No urinary calculi are present. There is no hydronephrosis. Large amount of stool within the rectum is present. There is no evidence for a bowel obstruction. There is mild body wall edema. Mesenteric edema is also present. There is no lymphadenopathy. No fluid collections are present. IMPRESSION: 1. Moderate to large loculated right pleural effusion with right lower lobe airspace opacity. The findings favor pneumonia or aspiration pneumonitis with parapneumonic effusion. An empyema cannot be excluded. 2. Large amount of stool within the rectum. No evidence for a bowel obstruction. 3. No urinary calculi or hydronephrosis. 4. Mildly distended gallbladder. No definite CT evidence for acute cholecystitis. 5. Mild body wall and mesenteric edema. ACT 112: Negative or not required by law. Electronically signed by: Paulo Tellez M.D. 01/05/2024 1:22 PM PG Care Time/CCT Total # of Minutes Spent Total Time Spent with Patient: Total time spent is greater than 50% in coordination of care (as documented) at patient's floor/unit and/or counseling patient: Coding Level of Care Code 57883 IN/OBS CONSULT LVL 5,80M Diagnoses Acute renal failure N17.9 Acute renal failure type: unspecified Sepsis A41.9 Sepsis acute organ dysfunction status: unspecified Sepsis type: sepsis due to unspecified organism Atrial fibrillation with rapid ventricular response I48.91 (1) Acute renal failure Acute renal failure type: unspecified Qualified Code(s): N17.9 - Acute kidney failure, unspecified (2) Sepsis Sepsis acute organ dysfunction status: unspecified Sepsis type: sepsis due to unspecified organism Qualified Code(s): A41.9 - Sepsis, unspecified organism
--- NOTE | 2024-01-05 16:33 | Cardiology Consultation ---
Date of Consultation January 05, 2024 Assessment & Plan (1) Atrial fibrillation with rapid ventricular response: (2) Elevated troponin: (3) Pleural effusion, right: (4) Acute renal failure: Plan 63-year-old man with apparent right sided empyema noted to have new onset atrial fibrillation with rapid ventricular sponsor. Fortunately, he spontaneously converted to sinus rhythm and is hemodynamically stable and essentially asymptomatic currently. BP initially hypotensive, now normotensive. Would recommend administering at least a low-dose of oral or IV metoprolol (5 mg IV every 6 hours or 12.5 mg p.o. every 6 hours) to reduce hyperadrenergic state and minimize risk of recurrent atrial fibrillation as well as to better control rate if recurrent dysrhythmia. If recurrent atrial tachydysrhythmia with borderline BP, could utilize amiodarone infusion (with or without bolus, depending on BP) for rate control. Will ultimately need to be anticoagulated, could hold off on heparin for now until he undergoes his thoracentesis, since he is in sinus rhythm. Post- thoracentesis, if additional procedures are not necessary, could initiate apixaban, but might wait for serial creatinine values to ensure he does not have progressive renal failure and to better titrate dosing. Minor troponin elevation likely demand ischemia, echocardiogram showed no wall motion abnormalities and he has no symptoms suggestive of angina. No immediate additional workup necessary to further evaluate this. Will follow along from a cardiology standpoint. History of Present Illness Reason for Consultation: New onset afib RVR Requesting Physician: Melecio Trinidad Attending Physician: Melecio Trinidad History of Present Illness 63-year-old man with no prior cardiac history admitted from [facility] with apparent right-sided empyema and noted to have new onset atrial fibrillation with rapid ventricular response. Past medical history includes diabetes mellitus (on insulin) and adjustment disorder, but no prior dysrhythmias or known heart disease. At baseline, ambulation may be limited from sciatica and other back problems, but he denies any dyspnea exertion, chest pain, or subjective palpitations. Over the past wee k or so he felt poorly, then rallied and felt somewhat better for a few days, the past 3 to 4 days now he has had profound fatigue, dyspnea on exertion, anorexia, and generalized malaise. He was mildly hypotensive on admission and received IV fluids. IV antibiotics administered. He was to receive low-dose metoprolol but it appears this has not yet been administered. Initial ECG showed atrial fibrillation with ventricular rate of 126 bpm, otherwise unremarkable. No prior ECG. Approximately 1 PM his rhythm reverted to sinus, ECG showed sinus rhythm at 74 bpm with PVCs and a mildly prolonged QT, otherwise unremarkable. At the time of my evaluation, patient was comfortable at rest, noting no chest pain, dyspnea, or palpitations. He does state that he felt somewhat "better" after his rhythm converted from atrial fibrillation to sinus. He denied any specific somatic complaints during my evaluation. Allergies Allergy/AdvReac Type Severity Reaction Status Date / Time Fish Containing Products Allergy Anaphylaxis Verified 01/05/24 12:50 metformin AdvReac Anaphylaxis Verified 01/05/24 12:48 Home Medications Medication Instructions Recorded Confirmed Type Novolin R 100u 15 unit subcut DAILY 01/05/24 01/05/24 History Novolin R Regular U100 Insulin 1 unit subcut .SLIDING SCALE PRN 01/05/24 01/05/24 History Other aspirin 81 mg tablet,delayed 81 mg PO DAILY 01/05/24 01/05/24 History release mirtazapine 30 mg tablet 30 mg PO HS 01/05/24 01/05/24 History rosuvastatin 20 mg tablet 20 mg PO DAILY 01/05/24 01/05/24 History Patient History Medical History Anxiety disorder Type 2 diabetes mellitus Social History Smoking Status: Former smoker Preferred Language: Latvian Feels Safe at Home: Yes Physical Exam Physical Exam: Adult white male appears fairly comfortable. BP 116/63 mmHg. Pulse 80 bpm and regular. Respirations 21 but unlabored. Skin: no ecchymoses or generalized lesions. HEENT: unremarkable. Neck: JVP at the clavicle at 90 degrees, no carotid bruits. Lungs: Absent breath sounds nearly all the way up on the right, left clear. Cardiac: regular rhythm, normal S1-2, no murmur. Abdomen: benign. Extremities: no edema, pulses intact. Neurologic: normal affect and conversation, nonfocal. Results & Data Laboratory Results WBC 20,000, hemoglobin 12. Sodium 132, potassium 3.6, BUN 74, creatinine 3.53. Troponin 57 and 86. Diagnostic Findings Chest x-ray showed moderate right pleural effusion with possible atelectasis or pneumonia. Echocardiogram showed EF 5055% with no wall motion abnormalities, RVSP was normal, no significant valvular disease, right pleural effusion suggested by perihepatic fluid. ECGs as per HPI. PG Care Time/CCT Total # of Minutes Spent Total Time Spent with Patient: Total time spent is greater than 50% in coordination of care (as documented) at patient's floor/unit and/or counseling patient: Coding Level of Care Code 09898 IN/OBS CONSULT LVL 4,60M Diagnoses Atrial fibrillation with rapid ventricular response I48.91 Elevated troponin R79.89 Pleural effusion, right J90 Acute renal failure N17.9 Acute renal failure type: unspecified (4) Acute renal failure Acute renal failure type: unspecified Qualified Code(s): N17.9 - Acute kidney failure, unspecified
--- NOTE | 2024-01-05 16:37 | Procedure Note ---
Procedure Note Date of Service January 05, 2024 Note PIGTAIL CATHETER PLACEMENT NOTE: Procedure: Pigtail Catheter Chest Tube Placement Indication: Empyema Anesthesia: 10 mL lidocaine 1% Written consent was obtained and placed on the chart. Timeout was done prior to the procedure. Prior to procedure, chest x-ray films were reviewed by myself and demonstrated a large loculated effusion with multiple septations. A time-out was completed verifying correct patient, procedure, site, positioning, and implant(s) or special equipment if applicable. Utilizing bedside ultrasound, chest wall was evaluated for location for optimal chest tube placement. Location between the sixth and 7 ribs were marked on the skin using gentle pressure. The right sided chest wall was prepped with chlorhexidine and draped in the typical sterile fashion. 10 mL of 1% Lidocaine without epinephrine was used to anesthetize the skin down to the dorsal surface of the 6 rib. Serous fluid return confirmed entry into the pleural space. Lidocaine was injected into the pleural space for increased anesthetization. Introducer needle on syringe was inserted in perpendicular fashion taking care to ride just above the dorsal surface of the 6 rib. Entry into the pleural space was heralded by serous foul-smelling fluid return into the syringe while under gentle aspiration. Guide wire was advanced into the pleural space without resistance and the introducer needle was subsequently removed. Scalpel was used to make small incision of the superficial tissue, parallel to the direction of the rib anatomy. Dilator was advanced uneventfully over the guide wire into the pleural space. 14 Lithuanian Pigtail Catheter was inserted into the pleural space. Inner introducer and guide wire were removed. Drain was immediately connected to pre-prepared KAIN pleur-evac system. Pigtail was sutured securely in place and sterile dressing was applied. Chest tube was placed to -20 cmH2O suction. Patient tolerated procedure well. Blood Loss: Minimal Complications: None Postprocedure chest x-ray is pending. Patient tolerated the procedure well with drainage of pleural fluid. Ultrasound was used to localize the chest tube insertion site. Coding CPT Codes Pulmonary/Thoracic - Pulmonary and Thoracic: 93052 Tube thoracostomy ([id number]) Pulmonary/Thoracic - Pulmonary and Thoracic: 13636 US, Chest, real time with imaging documentation ([id number]) [facility] Procedure Codes (Charges) Pulmonary/Thoracic Procedure 1: Pulmonary and Thoracic: 24404 Tube thoracostomy Procedure 2: Pulmonary and Thoracic: 48520 US, Chest, real time with imaging documentation
--- NOTE | 2024-01-05 16:41 | Critical Care Progress Note ---
Date of Service January 05, 2024 Assessment & Plan (1) Acute renal failure: (2) Pleural effusion, right: (3) DM II (diabetes mellitus, type II), controlled: (4) Atrial fibrillation with rapid ventricular response: (5) High anion gap metabolic acidosis: (6) Sepsis: Plan Assessment: 63 y/o male with PMH of DM2 and adjustment disorder admitted due to severe sepsis, acute renal failure and pleural effusion. Plan: Neurologic CAMICUnegative Sedation: None No concerns Cardiac Hypotensive at arrival, Now BPs 110/80s after IV resuscitation New onset Atrial fibrillation with RVR on arrival now on sinus rhythm -converted sporadic back to sinus rhythm -HR at 120s on arrival - TSH wnl - Cardiology consultation reviewed - ENEDELIA reviewed - Elevated troponin, likely secondary to demand ischemia and Afib - no ST changes on EKG. Respiratory Empyema - moderate right pleural effusion on CXR today - Bed side ultrasound with findings of pleural effusion multiple septation. - Chest tube placed, with suction - Specimen was sent for Gram stain, culture, or pleural fluid chemistries. No prior history of respiratory disease Maintaining adequate oxygen saturation on 95 on room air Gastrointestinal Diet: DM 2 Renal/electrolytes Replete electrolytes as needed Acute renal failure - secondary to sepsis, pneumonia and new onset atrial fibrillation - Cr of 3.98 today on arrival, last base is 0.95 as of 2021 per [facility]'s labs - Nephrology consulted - no HD today - Patient declining Garcia at this moment - Electrolyte balance acceptable - follow BMPs, mag and phos High anion gap metabolic acidosis - likely secondary due to sepsis, dehydration regina acute renal failure. - VBG in the ED with pH of 7.36, pCO2 of 25, and pO2 of 21 - Follow UA - Lactate improving -follow ABGs, lactate Genitourinary Patient declining Garcia at this time Strict I/O's Endocrine BSG stable Continue ISS per protocol Home DM2 meds held Hematologic Hgb stable at this time Infectious disease Sepsis secondary to Pneumonia and Empyema - lactate 10 on arrival, HR on 100s, Leukocytosis - lactate down to 4.2 after fluid resuscitation - afebrile since admission - Continue with IV Zosyn - MRSA swab pending - pending blood culture - Thoracentesis done today, pleural serology culture sent Integumentary No concerns at this time Lines/access PIVs intact Chest tube in place Prophylaxis DVT ppx: SCDs Disposition: After fluid resuscitation, patient hemodynamically stable to be downgraded to PCU Admission and Anticipated Discharge Date Admission Date: January 05, 2024 Supervising Physician Co-Signing Physician Notes Patient seen and examined with the resident physician. Agree with the note as above unless otherwise specified: Patient presented initially with severe lactic acidosis and renal failure. Patient responded favorably to crystalloid infusions and lactate trended down to 4. Patient was consented for chest tube placement due to high concerns for empyema. Patient was agreeable and I proceeded with chest tube insertion. Foul-smelling fluid was evacuated from the right pleural space. Will start the patient on the mist 2 protocol. High chance of potential failure of mist 2 protocol with potential need for transfer to tertiary center to undergo VATS decortication. Continue broad-spectrum antibiotics. He has now stabilized and will be transferred to PCU status. Pulmonary service will continue to monitor the patient. Thank you for the consult. Please call questions. Edu Fajardo is a 63 y/o male inmate at [facility] with PMH of DM2 and adjustment disorder who is admitted due to sepsis, new onset atrial fibrillation, renal failure and pleural effusion. Patient main complaint on arrival was generalized weakness and SOB. He was found with HR in the 120 but otherwise stable. CXR noted with moderate right pleural effusion. CT showed m oderate to large loculated right pleural effusion with right lower lobe airspace opacity. Labs were remarkable for lactate 10, WBC 20,000 and procal at 58. BP were soft on 90s/50s. 3.5L of IV fluids were given. Patient on evaluation found awake in NAD, alert and oriented. Saturating at 94 in room air. Hemodynamic stable.Denied any chest pain or palpitation. Does refe rs some rhonchi while exhaling. SOB is improved compared from this morning. He still refers generalized weakness. Refers SOB started weeeks ago. Denied any past history of fluids on lungs. Denied any prev history of atrial fibrillation. Denied any major bleeding, or any anticoagulant medication. Review of Systems Review of Systems: as per HPI Physical Exam Constitutional: In no acute distress, awake Respiratory: normal respiratory effort; no respiratory distress Auscultation: + rhonchi; breath sounds present Cardiovascular: RRR, no murmur, no edema Gastrointestinal (Abdomen): normal bowel sounds, soft, nontender, no hepatosplenomegaly Neurologic: moves all extremities and awake Results & Data Results & Data Vital Signs (Past 12 Hours) Vital Signs Pulse Pulse Resp BP BP Pulse Ox O2 Del Method 01/05/24 15:15 88 21 116/63 95 Room Air 01/05/24 14:00 63 18 96 Room Air 01/05/24 09:48 128 H 12 123/67 93 Room Air 01/05/24 09:48 Room Air 01/05/24 09:37 18 01/05/24 09:36 18 01/05/24 09:36 96 H 18 96 Room Air 01/05/24 09:27 129 H Resident Activity Tracking Resident Involvement: Resident Care Provided Care Provided: Adult Hospital Medicine (1) Acute renal failure Acute renal failure type: unspecified Qualified Code(s): N17.9 - Acute kidney failure, unspecified (6) Sepsis Sepsis acute organ dysfunction status: unspecified Sepsis type: sepsis due to unspecified organism Qualified Code(s): A41.9 - Sepsis, unspecified organism
--- NOTE | 2024-01-05 16:54 | XRay Report ---
XR chest 1V portable CLINICAL HISTORY: S/P Thoracentesis COMPARISON STUDY: Chest radiograph performed earlier today. FINDINGS: Interval placement of a right basilar pleural catheter is noted. The loculated right pleura l effusion has mildly decreased in size. Adjacent lucency likely reflects a small pneumothorax. Cardi omediastinal silhouette is stable. There is no evidence for pulmonary edema. IMPRESSION: Interval placement of a right basilar pleural catheter. Decrease in size of the loculate d right pleural effusion. Suspected small right basilar pneumothorax. ACT 112: Negative or not required by law. Electronically signed by: Paulo Tellez M.D. 01/05/2024 4:53 PM
[2024-01-05 17:15] LABS: Allen Test Pos (Pos)
--- NOTE | 2024-01-05 17:41 | Billing Data ---
Date of Service January 05, 2024 Coding Level of Care Code 37513 INT INP/OBS CARE
[2024-01-05] MEDS: LIDOCAINE 2% LOCAL 50 ML VIAL ONE (17:45)
[2024-01-05] MEDS: LIDOCAINE 2% JELLY 5 ML TUBE EXT ONE ×2 (17:45→18:41)
[2024-01-05 18:21] LABS: Total Protein Pleural Fluid 5.7 gm/dl
--- NOTE | 2024-01-05 18:33 | Electrocardiogram Report ---
Test Reason : Blood Pressure : / mmHG Vent. Rate : 074 BPM Atrial Rate : 074 BPM P-R Int : 144 ms QRS Dur : 094 ms QT Int : 458 ms P-R-T Axes : 054 056 037 degrees QTc Int : 508 ms Sinus rhythm with occasional Premature ventricular complexes Low voltage QRS Prolonged QT Abnormal ECG When compared with ECG of 05-JAN-2024 09:24, Sinus rhythm has replaced Atrial fibrillation Vent. rate has decreased BY 52 BPM Confirmed by Sherman Shin ([id number]) on 01/05/2024 6:33:21 PM Referred By: [facility] Confirmed By:Sherman Shin
--- NOTE | 2024-01-05 18:35 | Electrocardiogram Report ---
Test Reason : Blood Pressure : / mmHG Vent. Rate : 126 BPM Atrial Rate : 000 BPM P-R Int : 000 ms QRS Dur : 090 ms QT Int : 386 ms P-R-T Axes : 000 079 067 degrees QTc Int : 559 ms Atrial fibrillation with rapid ventricular response Low voltage QRS Abnormal ECG No previous ECGs available Confirmed by Sherman Shin ([id number]) on 01/05/2024 6:34:53 PM Referred By: [facility] Confirmed By:Sherman Shin
[2024-01-05 18:44] LABS: Appearance Pleural Fluid Cloudy; Color Pleural Fluid Yellow; Eosinophils, Fluid 3 %; Lymphocytes, Fluid 10 %; Mono,Macrophage,Mesothelial 17 %; Neutrophils, Fluid 70 %; RBC Pleural Fluid Auto 5000 /uL; Source Pleural Fluid Right Lung; WBC Pleural Fluid Auto 13615 /uL
[2024-01-05] MEDS ORDERED: Nursing to Pharmacy Communication SCH (18:45)
--- NOTE | 2024-01-05 19:09 | Urology Consultation ---
Date of Consultation January 05, 2024 Assessment & Plan (1) Urinary retention: (2) Acute renal failure: Plan Urinary retention now managed with Garcia catheter in place. Would recommend maintaining catheter until he is more stable and out of the ICU. Potentially could have a voiding trial prior to leaving the hospital. There may be an element of distal urethral stricture. This could be evaluated further with cystoscopy if he has trouble with a voiding trial. Would continue to monitor creatinine. Low suspicion for acute UTI, although a culture could be obtained if desired. Urology will sign off for now. Please call with any questions or concerns. History of Present Illness Reason for Consultation: Urinary retention, inability to place Garcia catheter Attending Physician: Melecio Trinidad History of Present Illness This is a 63-year-old incarcerated male who presented to the emergency de partment on 01/05/2024 with several days of poor oral intake, hyperglycemia and generalized weakness. He was found to have elevated lactate which responded to fluid resuscitation, however had minimal urine output. Lab work was notable for leukocytosis (WBC 20.11). Hemoglobin was slightly low at 12.0. Creatinine was elevated at 3.98. A CT scan was performed which identified a large loculated pleural effusion on the right side. A chest tube was placed by the ICU team. No stones or hydronephrosis were seen on the CT scan. His bladder was slightly distended. In the ICU, Garcia catheter placement was attempted, however catheters could not be advanced to the bladder. Urology was consulted for assistance with catheter placement. Garcia catheter was placed in the following fashion: Patient was prepped and draped in normal sterile fashion and verbal consent was obtained. ~10 cc lidocaine gel was injected per urethra. His urethral meatus initially appeared slightly small, however once the lidocaine was instilled the diameter looked slightly larger. Since his prior catheterizations had met resistance, I opted to start with a zip wire. A well-lubricated, 0.038 inch zip wire was advanced per urethra. There was some resistance distally, however this was able to bypassed the resistance and then advanced easily up to the bladder. A 14 Greek silicone catheter was then councilized and then advanced over the wire per urethra. Catheter was advanced to the bladder with minimal resistance, at which point there was return of clear yellow urine. The balloon was inflated with 10 mL of normal saline, wire was removed and the catheter was attached to gravity drainage. Patient tolerated the procedure well with no immediate complications. Allergies Allergy/AdvReac Type Severity Reaction Status Date / Time Fish Containing Products Allergy Anaphylaxis Verified 01/05/24 12:50 metformin AdvReac Anaphylaxis Verified 01/05/24 12:48 Home Medications Medication Instructions Recorded Confirmed Type Novolin R 100u 15 unit subcut DAILY 01/05/24 01/05/24 History Novolin R Regular U100 Insulin 1 unit subcut .SLIDING SCALE PRN 01/05/24 01/05/24 History Other aspirin 81 mg tablet,delayed 81 mg PO DAILY 01/05/24 01/05/24 History release mirtazapine 30 mg tablet 30 mg PO HS 01/05/24 01/05/24 History rosuvastatin 20 mg tablet 20 mg PO DAILY 01/05/24 01/05/24 History Patient History Medical History Anxiety disorder Type 2 diabetes mellitus Social History Smoking Status: Former smoker Tobacco Type: Cigarettes Second Hand Exposure: Yes; Hx Alcohol Use: No Hx Substance Use: No Preferred Language: Icelandic Current Living Situation: Other Current Living Situation Comment: half-way Feels Safe at Home: Yes Review of Systems Review of Systems: 12 point review of systems negative exce pt for otherwise indicated. Physical Exam Constitutional: well developed and well nourished; no acute distress Eyes: + anicteric sclerae; pupils not irregula r Respiratory: normal respiratory effort; no respiratory distress, does not use accessory muscles and no cough Cardiovascular: well perfused Chest (Breasts): Additional Comments: Chest tube in place with drainage of straw-colored fluid Gastrointestinal (Abdomen): Inspection/Auscultation: abdomen normal to in spection; abdomen not distended Musculoskeletal: Extremities: extremities normal to inspection Skin: normal turgor; no rashes and no lesions Neurologic: moves all extremities and awake Psychiatric: Orientation: alert and oriented x 3 Genitourinary: Catheter eventually placed. Draining clear yellow urine at the conclusion of procedure. Results & Data Vital Signs (Past 12 Hours) Vital Signs Temp Pulse Pulse Resp BP BP Pulse Ox 01/05/24 17:57 68 23 113/66 97 01/05/24 17:42 69 19 112/69 91 01/05/24 17:15 69 22 110/66 98 01/05/24 17:00 70 18 95 01/05/24 16:48 71 25 H 111/66 95 01/05/24 16:36 120/70 01/05/24 16:33 74 16 88/48 L 95 01/05/24 16:18 74 23 91/51 L 94 01/05/24 15:45 01/05/24 15:30 68 01/05/24 15:25 36.5 C 01/05/24 15:15 88 21 116/63 95 01/05/24 14:00 63 18 96 01/05/24 13:30 73 22 98/65 L 94 01/05/24 13:00 70 16 100/65 93 01/05/24 12:30 134 H 21 113/82 93 01/05/24 12:22 127 H 18 105/58 L 95 01/05/24 11:00 104 H 22 124/69 92 01/05/24 10:30 134 H 16 111/79 92 01/05/24 10:00 130 H 18 117/75 92 01/05/24 09:48 128 H 12 123/67 93 01/05/24 09:48 01/05/24 09:37 18 01/05/24 09:36 18 01/05/24 09:36 96 H 18 96 01/05/24 09:27 129 H O2 Del Method 01/05/24 17:57 01/05/24 17:42 01/05/24 17:15 01/05/24 17:00 01/05/24 16:48 01/05/24 16:36 01/05/24 16:33 01/05/24 16:18 01/05/24 15:45 Room Air 01/05/24 15:30 01/05/24 15:25 01/05/24 15:15 Room Air 01/05/24 14:00 Room Air 01/05/24 13:30 01/05/24 13:00 01/05/24 12:30 01/05/24 12:22 01/05/24 11:00 01/05/24 10:30 01/05/24 10:00 01/05/24 09:48 Room Air 01/05/24 09:48 Room Air 01/05/24 09:37 01/05/24 09:36 06/24/24 09:36 Room Air 01/05/24 09:27 PG Care Time/CCT Total # of Minutes Spent Total Time Spent with Patient: Total time spent is greater than 50% in coordination of care (as documented) at patient's floor/unit and/or counseling patient: Coding Level of Care Code 41911 INT INP/OBS CARE 2/55MIN Diagnoses Urinary retention R33.9 Acute renal failure N17.9 Acute renal failure type: unspecified Comment would add code 34748 for difficult Garcia placement (2) Acute renal failure Acute renal failure type: unspecified Qualified Code(s): N17.9 - Acute kidney failure, unspecified
[2024-01-05] MEDS: ALTEPLASE, RECOMBINANT 10 MG in SYRINGE 50 ML IPL SCH (19:24)
[2024-01-05 20:06] LABS: Magnesium 2.6 mg/dl (1.7-2.4)
[2024-01-05 20:26] LABS: Appearance Urine Cloudy (Clear); Bacteria Urine Automated None Seen (None Seen); Bilirubin Urine Negative (Negative); Blood Urine 3+ (Negative); Color Urine Yellow; Epithelial Cell Urine Auto 0-2 /hpf (0-2); Glucose Urine UA Negative (Negative); Ketones Urine Trace (Negative); Leukocyte Esterase Urine Negative (Negative); Nitrite Urine Negative (Negative); Protein Urine 2+ (Negative); Specific Gravity Urine 1.019 (1.000-1.030); Urobilinogen Urine Negative (Negative); WBC Urine Automated 0-5 /hpf (0-5); pH Urine 5.5 (4.5-7.5)
[2024-01-05] MEDS: DORNASE ALFA 5 ML in SYRINGE 25 ML IPL SCH (20:29)
[2024-01-05] MEDS: PIPERACILLIN/TAZOBACTAM 4.5 GM in DEXTROSE 5% MINI-B 100 ML IV SCH (21:15)
[2024-01-06] MEDS: ACETAMINOPHEN 1,000 MG/100 ML VIAL IV PRN (00:48)
[2024-01-06 05:24] LABS: Basophils # (auto) 0.01 K/uL (0.00-0.20); Basophils % (auto) 0.1 %; Eosinophils # (auto) 0.01 K/uL (0.00-0.50); Eosinophils % (auto) 0.1 %; Hematocrit (blood only) 37.8 % (42.0-52.0); Hemoglobin 12.9 g/dl (14.0-18.0); Immature Granulocytes # (auto) 0.14 K/uL (0.01-0.20); Immature Granulocytes % (auto) 0.9 %; Lymphocytes # (auto) 1.49 K/uL (1.20-3.40); Lymphocytes % (auto) 9.8 %; Mean Corpuscular Hemoglobin 28.7 pg (25.0-34.0); Mean Corpuscular Hgb Conc 34.1 g/dL (32.0-36.0); Mean Platelet Volume 9.7 fL (9.4-12.4); Monocytes # (auto) 1.16 K/uL (0.11-0.59); Monocytes % (auto) 7.7 %; Neutrophils # (auto) 12.33 K/uL (1.40-6.50); Neutrophils % (auto) 81.4 %; Platelet Count 349 K/uL (130-400); RDW Coefficient of Variation 13.2 % (11.5-14.5); RDW Standard Deviation 40.6 fL (36.4-46.3); White Blood Count 15.14 K/ul (4.8-10.8)
[2024-01-06 05:42] LABS: Albumin Globulin Ratio 0.7 (0.9-2); Albumin Level 2.7 gm/dl (3.4-5.0); BUN Creatinine Ratio 19.7 (10-20); Bilirubin,Total 0.9 mg/dl (0.2-1.0); Calcium 7.8 mg/dl (8.6-10.3); Est GFR (Non-African American) 14.6 ml/min; Magnesium 2.6 mg/dl (1.7-2.4); Potassium 3.7 mmol/L (3.5-5.1); Total Protein 6.7 gm/dl (6.0-8.3)
[2024-01-06 05:57] LABS: INR 1.2 (0.9-1.1); Prothrombin Time 12.4 Seconds (9.0-12.0)
--- NOTE | 2024-01-06 07:27 | XRay Report ---
SINGLE VIEW CHEST CLINICAL HISTORY: Chest tube. FINDINGS: An AP, portable, upright chest radiograph is compared to study dated 01/05/2024 and correlat ed with abdominal CT dated 01/05/2024. The heart is top normal for projection noting atherosclerotic c alcification of the thoracic aorta. The pulmonary vasculature is noncongested. The left lung appears clear. A pleural drain is again seen at the right lung base. Moderate right-sided hydropneumothorax p ersists with fluid tracking towards the apex. There is atelectasis/consolidation of the right lower l farhad. No pneumothorax is seen on the left. The skeletal structures are osteopenic. The bony thorax is grossly intact. IMPRESSION: 1. A right-sided pleural drain is unchanged in position. Right-sided hydropneumothorax persists. 2. There is atelectasis/consolidation of the right lower lung ACT 112: Negative or not required by law. Electronically signed by: Scotty Javier M.D. 01/06/2024 7:26 AM
--- NOTE | 2024-01-06 08:16 | Pulmonary Consultation ---
Date of Consultation January 06, 2024 Assessment & Plan (1) Pleural effusion, right: (2) Empyema: (3) Acute pneumonia: (4) Sepsis: Sepsis acute organ dysfunction status: unspecified Sepsis type: sepsis due to unspecified organism Qualified Code(s): A41.9 - Sepsis, unspecified organism Plan 63 y/o male with PMH of DM2 and adjustment disorder admitted due to severe se psis, acute renal failure and pleural effusion found to be empyema - Pig tail catheter / Chest tube on place currently on suction. Currently on mist 2 protocol. - Tolerating well the tube. Draining serosanguineous foul smelling fluid. Total ~400 ml since placement - CXR post procedure: Right basilar pleural catheter in place, loculated right pleural effusion decreased in size. Small right basilar pneumothorax - Pleural fluid culture pending - Continue broad-spectrum antibiotics - Suction increased to - Will add an extra dose of Alteplase 5 mg now and re- eval drainage output - Patient continue to be in a high risk for failure on mist 2 protocol, with potentia need for a transfer to tertiary center to undergo VATS decortication . Supervising Physician Co-Signing Physician Notes Patient seen and examined with resident physician as noted above. He remains hemodynamically stable and remains on room air. He continues to have a large loculated right pleural effusion with thick purulent material draining from the pigtail catheter. I am adding an additional 5 mg of alteplase to be of the pigtail catheter and will let that dwell for about 7 hours prior to opening of the catheter again to suction. Will then proceed with twice daily mist protocol as scheduled otherwise. Patient still has high likelihood of requiring potential VATS if he fails mist protocol. Continue broad-spectrum antibiotics and follow cultures from pleural fluid. Patient will be downgraded out of the ICU and sent to PCU status. Pulmonary continue to monitor. Thank you for the consult. History of Present Illness Attending Physician: Melecio Trinidad History of Present Illness Scotty is a 63 y/o male inmate at [facility] with PMH of DM2 and adjustment disorder who is admitted due to sepsis, new onset atrial fibrillation, renal failure and pleural effusion. Chest tube was placed yesterday. Foul-smelling fluid was evacuated from the right pleural spaced. Chest tub currently with -20H20 suction draining. Patient continue to be hemodynamically stable. CXR post procedure: Right basilar pleural catheter in place, loculated right pleural effusion decreased in size. Small r ight basilar pneumothorax. Today's CRX seem unchanged. Patient still a high chance of potential failure of mist 2 protocol, with potential need for transfer to undergo VATS decortication Allergies Allergy/AdvReac Type Severity Reaction Status Date / Time Fish Containing Products Allergy Anaphylaxis Verified 01/05/24 12:50 metformin AdvReac Anaphylaxis Verified 01/05/24 12:48 Home Medications Medication Instructions Recorded Confirmed Type Novolin R 100u 15 unit subcut DAILY 01/05/24 01/05/24 History Novolin R Regular U100 Insulin 1 unit subcut .SLIDING SCALE PRN 01/05/24 01/05/24 History Other aspirin 81 mg tablet,delayed 81 mg PO DAILY 01/05/24 01/05/24 History release mirtazapine 30 mg tablet 30 mg PO HS 01/05/24 01/05/24 History rosuvastatin 20 mg tablet 20 mg PO DAILY 01/05/24 01/05/24 History Patient History Medical History Anxiety disorder Type 2 diabetes mellitus Social History Smoking Status: Former smoker Tobacco Type: Cigarettes Second Hand Exposure: Yes; Hx Alcohol Use: No Hx Substance Use: No Preferred Language: Moldovan Communication Ability: Unable Current Living Situation: Other Current Living Situation Comment: residential Feels Safe at Home: Yes Review of Systems Review of Systems: as per HPI Physical Exam Constitutional: + thin, cooperative and comfortable; no acute distress Eyes: PERRL, conjunctivae normal, anicteric sclerae Respiratory: normal respiratory effort; no respiratory distress and no labored breathing Mild rhonchi on RLL, Clear to auscultation otherwise Chest (Breasts): Additional Comments: Chest tube in place, serosanguineous purulent discharge on drainage Musculoskeletal: no cyanosis or clubbing, extremities motor strength 5/5 Results & Data Results & Data Vital Signs (Past 12 Hours) Vital Signs Temp Pulse Resp BP Pulse Ox O2 Del Method 01/06/24 07:13 36.8 C 01/06/24 04:00 36.8 C 71 18 98/60 L 95 Room Air 01/05/24 22:42 36.8 C 65 20 122/65 95 Room Air PG Care Time/CCT Total # of Minutes Spent Total Time Spent with Patient: Total time spent is greater than 50% in coordination of care (as documented) at patient's floor/unit and/or counseling patient: Coding Diagnoses Pleural effusion, right J90 Empyema J86.9 Acute pneumonia J18.9 Sepsis A41.9 Sepsis acute organ dysfunction status: unspecified Sepsis type: sepsis due to unspecified organism
[2024-01-06 08:35] LABS: Estimated Average Glucose 186 mg/dl; Hemoglobin A1C 8.1 % (4.5-5.6)
--- NOTE | 2024-01-06 08:35 | Nephrology Progress Note ---
Date of Service January 06, 2024 Assessment & Plan (1) Acute renal failure: Plan: * MARY likely ATN related to sepsis, pneumonia, new onset atrial fibrillation. No recent exposure to known nephrotoxic agents. * 01/[address] negative for obstruction * Patient has received volume resuscitation in EMD due to sepsis syndrome. He is hemodynamically stable * Garcia catheter in place draining clear yellow urine. UO 1100 cc last 24 hours * Urinalysis negative for ATN casts * Electrolyte balance is acceptable. No acute indication for HD today * Monitor PRP, UO (2) Sepsis: Plan: * Probable RLL pneumonia w/ parapneumonic effusion * Await blood and pleural fluid culture results * On empiric IV Zosyn (3) Atrial fibrillation with rapid ventricular response: Plan: * Now converted to NSR. Cardiology following * 01/04 Echocardiogram: LVEF 50-55%, normal LV wall motion, no significant valvular disease * Hemodynamically stable Admission and Anticipated Discharge Date Admission Date: January 05, 2024 Subjective Mr. Islas was evaluated in the ICU this morning. He c/o discomfort from his PleurX catheter. Garcia catheter remains in place draining clear, yellow urine. UO 1100 cc last 24 hours Review of Systems Constitutional: no fever Eyes: no problem reported Ear, Nose, Mouth, Throat: no problem reported Respiratory: no cough and no dyspnea Cardiovascular: no chest pain Gastrointestinal: no abdominal pain, no nausea, no vomiting and no diarrhea/loose stools Genitourinary: no dysuria or no hematuria Integumentary: no rash Physical Exam Constitutional: + thin; not in distress Eyes: PERRL, conjunctivae normal, anicteric sclerae ENMT: external ear and nose normal, oropharynx normal Neck: trachea midline, no thyromegaly Respiratory: Auscultation: + diminished lung sounds (R base. PleurX catheter in place) Cardiovascular: Rate/Rhythm: + irregularly irregular Gastrointestinal (Abdomen): normal bowel sounds, soft, nontender, no hepatosplenomegaly Skin: no rashes, warm and dry Neurologic: Speech / Cognition: normal speech and normal cognition Results & Data Vital Signs (Past 12 Hours) Vital Signs Temp Pulse Resp BP Pulse Ox O2 Del Method 01/06/24 07:13 36.8 C 01/06/24 04:00 36.8 C 71 18 98/60 L 95 Room Air 01/05/24 22:42 36.8 C 65 20 122/65 95 Room Air Laboratory Results Laboratory Results - last 24 hr 01/05/24 01/05/24 01/05/24 09:32 09:45 09:54 WBC 20.11 H RBC 4.11 L Hgb 12.0 L Hct 35.8 L MCV 87.1 MCH 29.2 MCHC 33.5 RDW Std Deviation 42.2 RDW Coeff of Aly 13.3 Plt Count 356 MPV 10.1 Immature Gran % (Auto) 1.7 Neut % (Auto) 87.6 Lymph % (Auto) 4.8 Lucas % (Auto) 5.8 Eos % (Auto) 0.0 Baso % (Auto) 0.1 Neut # (Auto) 17.60 H Lymph # (Auto) 0.97 L Lucas # (Auto) 1.17 H Eos # (Auto) 0.01 Baso # (Auto) 0.02 Immature Gran # (Auto) 0.34 H PT 12.5 H INR 1.2 H APTT 26 PTT Ratio 1.0 ABG pH ABG pCO2 ABG pO2 ABG HCO3 ABG O2 Saturation ABG Base Excess Cirilo Test VBG pH 7.36 VBG pCO2 25 L VBG pO2 21 VBG HCO3 14 VBG O2 Saturation < 60.0 VBG Base Excess -9.6 Oxygen Given Sodium 133 L Potassium 4.6 Chloride 94 L Carbon Dioxide 12 L Anion Gap 27 H BUN 74 H Creatinine 3.98 H Est Cr Clr Drug Dosing 17.7 Est GFR ( Amer) 17.2 Est GFR (Non-Af Amer) 14.8 BUN/Creatinine Ratio 18.6 Glucose 253 H POC Glucose Estimat Average Glucose Hemoglobin A1c Lactate 10.0 H* Calcium 8.1 L Ionized Calcium Magnesium 2.7 H Total Bilirubin 0.9 Direct Bilirubin 0.3 H AST 132 H ALT 44 Alkaline Phosphatase 117 H Troponin I High Sens 57.7 H* Total Protein 6.6 Albumin 2.6 L Globulin Albumin/Globulin Ratio Procalcitonin 58.50 H TSH Urine Color Urine Appearance Urine pH Ur Specific [place] Urine Protein Urine Glucose (UA) Urine Ketones Urine Blood Urine Nitrite Urine Bilirubin Urine Urobilinogen Ur Leukocyte Esterase Urine WBC (Auto) Urine RBC (Auto) U Hyaline Cast (Auto) U Epithel Cells (Auto) Urine Bacteria (Auto) Fluid Neutrophils % Fluid Lymphocytes % Fluid Eosinophils % Fluid Meso/Macro/Lucas % Fluid Slide Review Fluid Comment Pleural Fluid Source Pleural Color Pleural Appearance Pleural pH Pleural WBC (Auto) Pleural RBC (Auto) Pleural Total Protein Pleural LDH Pleural Glucose Pleural Amylase Pleural Cholesterol Nasal Screen MRSA (PCR) SARS-CoV-2 (PCR) NEGATIVE Influenza Type A (PCR) Negative Influenza Type B (PCR) Negative RSV (RT-PCR) Negative 01/05/24 01/05/24 01/05/24 11:45 12:41 14:18 WBC RBC Hgb Hct MCV MCH MCHC RDW Std Deviation RDW Coeff of Aly Plt Count MPV Immature Gran % (Auto) Neut % (Auto) Lymph % (Auto) Lucas % (Auto) Eos % (Auto) Baso % (Auto) Neut # (Auto) Lymph # (Auto) Lucas # (Auto) Eos # (Auto) Baso # (Auto) Immature Gran # (Auto) PT INR APTT PTT Ratio ABG pH ABG pCO2 ABG pO2 ABG HCO3 ABG O2 Saturation ABG Base Excess Cirilo Test VBG pH VBG pCO2 VBG pO2 VBG HCO3 VBG O2 Saturation VBG Base Excess Oxygen Given Sodium Potassium Chloride Carbon Dioxide Anion Gap BUN Creatinine Est Cr Clr Drug Dosing Est GFR ( Amer) Est GFR (Non-Af Amer) BUN/Creatinine Ratio Glucose POC Glucose 290 H 228 H Estimat Average Glucose Hemoglobin A1c Lactate 4.2 H* Calcium Ionized Calcium Magnesium Total Bilirubin Direct Bilirubin AST ALT Alkaline Phosphatase Troponin I High Sens 86.3 H* D Total Protein Albumin Globulin Albumin/Globulin Ratio Procalcitonin TSH 1.526 Urine Color Urine Appearance Urine pH Ur Specific [place] Urine Protein Urine Glucose (UA) Urine Ketones Urine Blood Urine Nitrite Urine Bilirubin Urine Urobilinogen Ur Leukocyte Esterase Urine WBC (Auto) Urine RBC (Auto) U Hyaline Cast (Auto) U Epithel Cells (Auto) Urine Bacteria (Auto) Fluid Neutrophils % Fluid Lymphocytes % Fluid Eosinophils % Fluid Mes[place]/Macro/Lucas % Fluid Slide Review Fluid Comment Pleural Fluid Source Pleural Color Pleural Appearance Pleural pH Pleural WBC (Auto) Pleural RBC (Auto) Pleural Total Protein Pleural LDH Pleural Glucose Pleural Amylase Pleural Cholesterol Nasal Screen MRSA (PCR) SARS-CoV-2 (PCR) Influenza Type A (PCR) Influenza Type B (PCR) RSV (RT-PCR) 01/05/24 01/05/24 01/05/24 14:56 15:20 16:20 WBC RBC Hgb Hct MCV MCH MCHC RDW Std Deviation RDW Coeff of Aly Plt Count MPV Immature Gran % (Auto) Neut % (Auto) Lymph % (Auto) Lucas % (Auto) Eos % (Auto) Baso % (Auto) Neut # (Auto) Lymph # (Auto) Lucas # (Auto) Eos # (Auto) Baso # (Auto) Immature Gran # (Auto) PT INR APTT PTT Ratio ABG pH 7.43 ABG pCO2 23 L ABG pO2 71 L ABG HCO3 15 L ABG O2 Saturation 97.6 H ABG Base Excess -7.0 Cirilo Test Pos VBG pH VBG pCO2 VBG pO2 VBG HCO3 VBG O2 Saturation VBG Base Excess Oxygen Given room air Sodium 132 L Potassium 3.6 D Chloride 101 Carbon Dioxide 15 L Anion Gap 16 H BUN 74 H Creatinine 3.53 H D Est Cr Clr Drug Dosing 19.9 Est GFR ( Amer) 19.8 Est GFR (Non-Af Amer) 17.1 BUN/Creatinine Ratio 21.0 H Glucose 231 H POC Glucose Estimat Average Glucose Hemoglobin A1c Lactate Calcium 7.4 L Ionized Calcium 0.98 L Magnesium 2.6 H Total Bilirubin 0.8 Direct Bilirubin AST 139 H ALT 44 Alkaline Phosphatase 111 H Troponin I High Sens Total Protein 6.7 Albumin 2.9 L Globulin 3.8 Albumin/Globulin Ratio 0.8 L Procalcitonin TSH Urine Color Urine Appearance Urine pH Ur Specific [place] Urine Protein Urine Glucose (UA) Urine Ketones Urine Blood Urine Nitrite Urine Bilirubin Urine Urobilinogen Ur Leukocyte Esterase Urine WBC (Auto) Urine RBC (Auto) U Hyaline Cast (Auto) U Epithel Cells (Auto) Urine Bacteria (Auto) Fluid Neutrophils % 70 Fluid Lymphocytes % 10 Fluid Eosinophils % 3 Fluid Mes[place]/Macro/Lucas % 17 Fluid Slide Review Pending Fluid Comment Pleural Fluid Source Right Lung Pleural Color Yellow Pleural Appearance Cloudy Pleural pH < 7.00 L Pleural WBC (Auto) 56828 Pleural RBC (Auto) 5000 Pleural Total Protein 5.7 Pleural LDH 2011 Pleural Glucose 18 Pleural Amylase 250 Pleural Cholesterol Pending Nasal Screen MRSA (PCR) Negative SARS-CoV-2 (PCR) Influenza Type A (PCR) Influenza Type B (PCR) RSV (RT-PCR) 01/05/24 01/05/24 01/05/24 17:19 20:36 Unknown WBC RBC Hgb Hct MCV MCH MCHC RDW Std Deviation RDW Coeff of Aly Plt Count MPV Immature Gran % (Auto) Neut % (Auto) Lymph % (Auto) Lucas % (Auto) Eos % (Auto) Baso % (Auto) Neut # (Auto) Lymph # (Auto) Lucas # (Auto) Eos # (Auto) Baso # (Auto) Immature Gran # (Auto) PT INR APTT PTT Ratio ABG pH ABG pCO2 ABG pO2 ABG HCO3 ABG O2 Saturation ABG Base Excess Cirilo Test VBG pH VBG pCO2 VBG pO2 VBG HCO3 VBG O2 Saturation VBG Base Excess Oxygen Given Sodium Cancelled Potassium Cancelled Chloride Cancelled Carbon Dioxide Cancelled Anion Gap Cancelled BUN Cancelled Creatinine Cancelled Est Cr Clr Drug Dosing Cancelled Est GFR ( Amer) Cancelled Est GFR (Non-Af Amer) Cancelled BUN/Creatinine Ratio Cancelled Glucose Cancelled POC Glucose 109 H 74 Estimat Average Glucose Hemoglobin A1c Lactate Calcium Cancelled Ionized Calcium Magnesium Cancelled Total Bilirubin Direct Bilirubin AST ALT Alkaline Phosphatase Troponin I High Sens Total Protein Albumin Globulin Albumin/Globulin Ratio Procalcitonin TSH Urine Color Yellow Urine Appearance Cloudy A Urine pH 5.5 Ur Specific [place] 1.019 Urine Protein 2+ H Urine Glucose (UA) Negative Urine Ketones Trace H Urine Blood 3+ H Urine Nitrite Negative Urine Bilirubin Negative Urine Urobilinogen Negative Ur Leukocyte Esterase Negative Urine WBC (Auto) 0-5 Urine RBC (Auto) 6-10 H U Hyaline Cast (Auto) 3-5 H U Epithel Cells (Auto) 0-2 Urine Bacteria (Auto) None Seen Fluid Neutrophils % Fluid Lymphocytes % Fluid Eosinophils % Fluid [place]/Macro/[place] % Fluid Slide Review Fluid Comment Pleural Fluid Source Pleural Color Pleural Appearance Pleural pH Pleural WBC (Auto) Pleural RBC (Auto) Pleural Total Protein Pleural LDH Pleural Glucose Pleural Amylase Pleural Cholesterol Nasal Screen MRSA (PCR) SARS-CoV-2 (PCR) Influenza Type A (PCR) Influenza Type B (PCR) RSV (RT-PCR) 01/06/24 01/06/24 04:55 07:09 WBC 15.14 H RBC 4.50 L Hgb 12.9 L Hct 37.8 L MCV 84.0 MCH 28.7 MCHC 34.1 RDW Std Deviation 40.6 RDW Coeff of Aly 13.2 Plt Count 349 MPV 9.7 Immature Gran % (Auto) 0.9 Neut % (Auto) 81.4 Lymph % (Auto) 9.8 Lucas % (Auto) 7.7 Eos % (Auto) 0.1 Baso % (Auto) 0.1 Neut # (Auto) 12.33 H Lymph # (Auto) 1.49 Lucas # (Auto) 1.16 H Eos # (Auto) 0.01 Baso # (Auto) 0.01 Immature Gran # (Auto) 0.14 PT 12.4 H INR 1.2 H APTT PTT Ratio ABG pH ABG pCO2 ABG pO2 ABG HCO3 ABG O2 Saturation ABG Base Excess Cirilo Test VBG pH VBG pCO2 VBG pO2 VBG HCO3 VBG O2 Saturation VBG Base Excess Oxygen Given Sodium 133 L Potassium 3.7 Chloride 97 L Carbon Dioxide 22 Anion Gap 14 H BUN 79 H Creatinine 4.02 H D Est Cr Clr Drug Dosing 18.0 Est GFR ( Amer) 17.0 Est GFR (Non-Af Amer) 14.6 BUN/Creatinine Ratio 19.7 Glucose 85 POC Glucose 71 Estimat Average Glucose 186 Hemoglobin A1c 8.1 H Lactate Calcium 7.8 L Ionized Calcium Magnesium 2.6 H Total Bilirubin 0.9 Direct Bilirubin AST 179 H ALT 49 Alkaline Phosphatase 114 H Troponin I High Sens Total Protein 6.7 Albumin 2.7 L Globulin 4.0 Albumin/Globulin Ratio 0.7 L Procalcitonin TSH Urine Color Urine Appearance Urine pH Ur Specific [place] Urine Protein Urine Glucose (UA) Urine Ketones Urine Blood Urine Nitrite Urine Bilirubin Urine Urobilinogen Ur Leukocyte Esterase Urine WBC (Auto) Urine RBC (Auto) U Hyaline Cast (Auto) U Epithel Cells (Auto) Urine Bacteria (Auto) Fluid Neutrophils % Fluid Lymphocytes % Fluid Eosinophils % Fluid [place]/Mac[place] % Fluid Slide Review Fluid Comment Pleural Fluid Source Pleural Color Pleural Appearance Pleural pH Pleural WBC (Auto) Pleural RBC (Auto) Pleural Total Protein Pleural LDH Pleural Glucose Pleural Amylase Pleural Cholesterol Nasal Screen MRSA (PCR) SARS-CoV-2 (PCR) Influenza Type A (PCR) Influenza Type B (PCR) RSV (RT-PCR) PG Care Time/CCT Total # of Minutes Spent Total Time Spent with Patient: Total time spent is greater than 50% in coordination of care (as documented) at patient's floor/unit and/or counseling patient: Coding Level of Care Code 80122 SUB INP/OBS CARE 3/50MIN Diagnoses Acute renal failure N17.9 Acute renal failure type: unspecified Sepsis A41.9 Sepsis acute organ dysfunction status: unspecified Sepsis type: sepsis due to unspecified organism Atrial fibrillation with rapid ventricular response I48.91 (1) Acute renal failure Acute renal failure type: unspecified Qualified Code(s): N17.9 - Acute kidney failure, unspecified (2) Sepsis Sepsis acute organ dysfunction status: unspecified Sepsis type: sepsis due to unspecified organism Qualified Code(s): A41.9 - Sepsis, unspecified organism
--- NOTE | 2024-01-06 09:46 | Cardiology Progress Note ---
Date of Service January 06, 2024 Assessment & Plan (1) Atrial fibrillation with rapid ventricular response: (2) Elevated troponin: (3) Pleural effusion, right: (4) Acute renal failure: Plan Stable from a cardiac standpoint with favorable hemodynamics and no recurrence of atrial fibrillation. Would still recommend low-dose metoprolol to reduce hyperadrenergic state and minimize risk of recurrent atrial fibrillation as well as to better control rate if recurrent dysrhythmia. If recurrent atrial tachydysrhythmia with borderline BP, could utilize amiodarone infusion (with or without bolus, depending on BP) for rate control. Will ultimately need to be anticoagulated, could hold off on heparin for now given presence of chest tube and since he is in sinus rhythm. Post- thoracentesis, if additional procedures are not necessary, could initiate api xaban, but might wait for serial creatinine values to ensure he does not have progressive renal failure and to better titrate dosing. No new cardiology recommendations. Admission and Anticipated Discharge Date Admission Date: January 05, 2024 Subjective Chest tube placed yesterday. Aside from poor appetite, patient had no complaints. Denied dyspnea at rest or chest pain. Telemetry showed sinus rhythm with no further atrial fibrillation since yesterday. Hemodynamics favorable. Physical Exam Physical Exam: No distress. Normotensive. Pulse 88 bpm and regular. Skin: no ecchymoses or generalized lesions. HEENT: unremarkable. Neck: JVP at the clavicle at 90 degrees, no carotid bruits. Lungs: Diminished breath sounds right base, otherwise clear. Cardiac: regular rhythm, normal S1-2, no murmur. Abdomen: benign. Extremities: no edema, pulses intact. Neurologic: normal affect and conversation, nonfocal. Results & Data Laboratory Results Sodium 133, potassium 3.7, BUN 79, creatinine 4.02. Troponins yesterday 57 and 86 Diagnostic Findings Chest x-ray today showed right-sided pleural drain with right-sided hydropneumothorax. PG Care Time/CCT Total # of Minutes Spent Total Time Spent with Patient: Total time spent is greater than 50% in coordination of care (as documented) at patient's floor/unit and/or counseling patient: Coding Level of Care Code 33985 SUB INP/OBS CARE 2/35MIN Diagnoses Atrial fibrillation with rapid ventricular response I48.91 Elevated troponin R79.89 Pleural effusion, right J90 Acute renal failure N17.9 Acute renal failure type: unspecified (4) Acute renal failure Acute renal failure type: unspecified Qualified Code(s): N17.9 - Acute kidney failure, unspecified
--- NOTE | 2024-01-06 09:57 | Billing Data ---
Date of Service January 06, 2024 Coding Level of Care Code 49803 SUB INP/OBS CARE MIN
--- NOTE | 2024-01-06 10:09 | Pulmonology Progress Note ---
Date of Service January 06, 2024 Assessment & Plan (1) Pleural effusion, right: (2) Empyema: (3) Acute pneumonia: (4) Sepsis: Sepsis acute organ dysfunction status: unspecified Sepsis type: sepsis due to unspecified organism Qualified Code(s): A41.9 - Sepsis, unspecified organism Plan 63 y/o male with PMH of DM2 and adjustment disorder admitted due to severe s epsis, acute renal failure and pleural effusion found to be empyema - Pig tail catheter / Chest tube on place currently on suction. Currently on mist 2 protocol. - Tolerating well the tube. Draining serosanguineous foul smelling fluid. Total ~400 ml since placement - CXR post procedure: Right basilar pleural catheter in place, loculated right pleural effusion decreased in size. Small right basilar pneumothorax - Pleural fluid culture pending - Continue broad-spectrum antibiotics - Suction increased to - Will add an extra dose of Alteplase 5 mg now and re- eval drainage output - Patient continue to be in a high risk for failure on mist 2 protocol, with potentia need for a transfer to tertiary center to undergo VATS decortication . Admission and Anticipated Discharge Date Admission Date: January 05, 2024 Supervising Physician Co-Signing Physician Notes Patient seen and examined with resident physician as noted above. He remains hemodynamically stable and remains on room air. He continues to have a large loculated right pleural effusion with thick purulent material draining from the pigtail catheter. I am adding an additional 5 mg of alteplase to be of the pigtail catheter and will let that dwell for about 7 hours prior to opening of the catheter again to suction. Will then proceed with twice daily mist protocol as scheduled otherwise. Patient still has high likelihood of requiring potential VATS if he fails mist protocol. Continue broad-spectrum antibiotics and follow cultures from pleural fluid. Patient will be downgraded out of the ICU and sent to PCU status. Pulmonary continue to monitor. Thank you for the consult. Edu Fajardo is a 63 y/o male inmate at [facility] with PMH of DM2 and adjustment disorder who is admitted due to sepsis, new onset atrial fibrillation, renal failure and pleural effusion. Chest tube was placed yesterday. Foul-smelling fluid was evacuated from the right pleural spaced. Chest tub currently with -20H20 suction draining. Patient continue to be hemodynamically stable. CXR post procedure: Right basilar pleural catheter in place, loculated right pleural effusion decreased in size. Small right basilar pneumothorax. Today's CRX seem unchanged. Patient still a high chance of potential failure of mist 2 protocol, with potential need for transfer to undergo VATS decortication Review of Systems Review of Systems: as per HPI Physical Exam Constitutional: + thin, cooperative and comfortable; no acute distress Eyes: PERRL, conjunctivae normal, anicteric sclerae Respiratory: normal respiratory effort; no respiratory distress and no labored breathing Auscultation: + rhonchi; breath sounds present Cardiovascular: RRR, no murmur, no edema Gastrointestinal (Abdomen): normal bowel sounds, soft, nontender, no hepatosplenomegaly Musculoskeletal: no cyanosis or clubbing, extremities motor strength 5/5 Neurologic: moves all extremities and awake Results & Data Results & Data Vital Signs (Past 12 Hours) Vital Signs Temp Pulse Pulse Resp BP BP Pulse Ox 01/06/24 08:58 01/06/24 08:00 89 23 125/72 96 01/06/24 07:13 36.8 C 01/06/24 04:00 36.8 C 71 18 98/60 L 95 01/05/24 22:42 36.8 C 65 20 122/65 95 O2 Del Method 01/06/24 08:58 Room Air 01/06/24 08:00 Room Air 01/06/24 07:13 01/06/24 04:00 Room Air 01/05/24 22:42 Room Air
[2024-01-06] MEDS: ALTEPLASE IPL SCH (10:36)
[2024-01-06] MEDS: RECOMBINANT IPL SCH (10:36)
[2024-01-06 12:30] LABS: Appearance Urine Turbid (Clear); Bacteria Urine Automated None Seen (None Seen); Bilirubin Urine Negative (Negative); Blood Urine 3+ (Negative); Color Urine Yellow; Glucose Urine UA Negative (Negative); Ketones Urine 1+ (Negative); Leukocyte Esterase Urine Negative (Negative); Nitrite Urine Negative (Negative); Protein Urine 2+ (Negative); RBC Urine Automated >20 /hpf (0-2); Specific Gravity Urine 1.021 (1.000-1.030); Urobilinogen Urine Negative (Negative); WBC Urine Automated 0-5 /hpf (0-5); pH Urine 5.5 (4.5-7.5)
[2024-01-06 12:48] LABS: Total Protein Urine Random 158.2 mg/dl (0-11.9)
[2024-01-06 12:53] LABS: Creatinine Urine Random 77.2 mg/dl
[2024-01-06 12:58] LABS: Granular Casts Urine Present /lpf (None Prsent)
[2024-01-06 13:01] LABS: Uric Acid Crystals Urine Present (None Prsent)
--- NOTE | 2024-01-06 13:26 | Pharmacy Report ---
Pharmacy Glycemic Short Note 2 - Date of Service January 06, 2024 - Glycemic Short BSG Results (Last 24 hours): 01/05/24 01/05/24 01/05/24 14:18 14:56 17:19 Glucose 231 H POC Glucose 228 H 109 H 01/05/24 01/05/24 01/06/24 20:36 Unknown 04:55 Glucose Cancelled 85 POC Glucose 74 01/06/24 01/06/24 07:09 11:00 Glucose POC Glucose 71 109 H OUTPATIENT ANTIDIABETIC REGIMEN: * Novolin R 15 units SQ daily, Novolin R SSI * A1c 8.1% 01/04 ASSESSMENT: 01/05 * SCr 4.02 thia AM. T2DM diet now ordered. BSGs trended downward and patient has not received insulin since yesterday at lunch. * Will continue to hold basal at this time given increased SCR. * Novolog carb ratio loosened, continue with current correction factor. 01/04 * 63 year old admitted with hyperglycemia, poor oral intake, MARY, concerns for sepsis/dehydration, metabolic acidosis, afib. Concerns for pneumonia noted on CT. Scr up to 3.98 mg/dL - per notes, baseline Scr closer to 0.95 per records 2021. Elevated anion gap on admission, provider notes report likely related to acute renal failure. Provider repeating labs again this afternoon, still pending. * DM2 diabetic - pharmacy consulted for glycemic control. Patient NPO - reasonable to start novolog for now and see how BSGs trend. Unknown A1c - will order for tomorrow AM. Given 5 units SQ insulin at lunch time, will continue with novolog Q6 hour checks. PLAN FOR INPATIENT GLYCEMIC CONTROL: * Hold outpatient oral diabetes medications * Basal insulin * Lantus - hold * Bolus insulin * NovoLog per scale ACHS or Q6hrs while NPO * Goal Range: Low 110 mg/dL - High 140 mg/dL * Correction Factor: 35 mg/dL/unit * Nutritional / Prandial insulin per carb ratio of 1 unit per 20 grams CHO consumed
--- NOTE | 2024-01-06 17:57 | Hospitalist Progress Note ---
Date of Service January 06, 2024 Assessment & Plan (1) Sepsis: Plan: -Admit to the PCU on tele and pulse oximetry -Currently hemodynamically stable, with HR in the low 100's, and otherwise stable at the time of the admission -Presented to the [facility] ED from [facility] due to multiple days of poor oral intake, hyperglycemia, and generalized weakness this am -Found to be in new onset atrial fibrillation with HR in the 120's, with WBC of 20, with possible right airspace opacity on CXR -Initial lactate of 10 -->4.2 after 3.5 L NSS given between EMS and the ED -Procal is elevated at 50. Appears to be empyema. Patient with chest tube placed. Currently draining. Pleural effusion is showing bacteria. (2) High anion gap metabolic acidosis: Plan: -AG of 27, bicarb of 12 -Initial lactate of 10 -VBG in the ED with pH of 7.36, pCO2 of 25, and pO2 of 21 -Likely due to sepsis, dehydration, and acute renal failure -Will follow UA when obtained to monitor for signs of ketosis -Patient has received approximately 3.5L NSS between EMS transport and while in the ED -Repeat lactate improving to 4.2 -Will hold additional IV fluids until CT of the abd/pelvis is read as we do not want to volume overload him if he is in acute renal failure -Will continue to monitor lactate until he is stable (3) Acute renal failure: Plan: -Cr of 3.98 today, last base is 0.95 as of 2021 per [facility]'s labs -Patient had not been able to urinate since arrival, confirms this is not normal for him -Bladder scan at the time of admission was 200 cc -Electrolytes are currently stable, no indication for emergent/urgent dialysis at the time of admission -Patient did have some recent right flank pain with possible right CVA tenderness on exam -Will obtain stat CT of the abd/pelvis wo con at the time of admission to monitor for obstruction -Will monitor intake/output q6h -Will hold additional IV fluids until CT of the abd/pelvis is read in case he has an obstruction -If needed, will speak to the patient again regarding possible cali placement -Nephrology consult placed -Avoid nephrotoxic agents (4) Atrial fibrillation with rapid ventricular response: Plan: -Patient found to be in new-onset afib RVR with HR in the 120's on arrival -Potassium of 4.6, mag of 2.7 -Will add on TSH level -Likely due to his acute illness and renal failure -HR is currently stable in the low 100's at the time of exam, will not be overly aggressive with rate reduction on admission to avoid suppressing his reactive tacycardia with sepsis -Will start PRN 5 mg IV Lopressor q5m PRN sustained HR > 130 BPM for now, max 3 doses -Patient will be started on low dose, weight based heparin drip wo bolus for anticoagulation - Cardiology consult and TTE on admission (5) Pleural effusion, right: Plan: -Patient noted to have a moderate right pleural effusion on CXR today -Possible associated airspace opacity as well -Currently in no respiratory distress and stable on RA -empyema -Continue incentive spirometry,flutter therapy, prn O2 to keep SpO2 at or above 94% (6) Elevated troponin: Plan: -Initial high sen trop elevated at 57 -Patient is without chest pain or acute ST segment/T-wave changes on ECG -Likely due to demand with sepsis, acute renal failure, and afib RVR on arrival -2 hour repeat high sen trop is in process -Will continue to monitor on tele, continue to trend high sen trop q6h overnight -Will follow cardiology consult and TTE ordered on admission (7) DM II (diabetes mellitus, type II), controlled: Plan: -Normally takes 15 units SQ Novolin R in the am with SSI -Did have his am dose of basal insulin prior to arrival -Will start q6h BSG checks, goal is 110-160 for now -Start CF of 50 and CR 15 for now -Will hold basal insulin with acute renal failure -Keeping NPO until CT of abd/pelvis is read -Pharmacy glycemic consult has been place due to patient's multiple acute abnormalities on admission Admission and Anticipated Discharge Date Admission Date: January 05, 2024 Subjective Patient reports doing well. He has no new complaints. Review of Systems Review of Systems: All systems reviewed & are unremarkable except as noted in HPI & below Physical Exam Physical Exam: General: In no acute distress HEENT: Normocephalic, atraumatic Chest/Pulm: CTA throughout/ chest tube placed. Cardiac: irregular rate and rhythm, no murmurs noted Abdomen: Negative for ascites and bruising, normoactive bowel sounds, soft, m ildly tender in the RUQ with equivocal moran's sign Musculoskeletal: Symmetrical and without signs of acute trauma, upper and lower extremities with full ROM, no atrophy, spasticity, or flaccidity Extremities: Radial, dorsalis pedis, and posterior tibial pulses are intact and symmetrical, no edema noted in the BL LE's Results & Data Results & Data Vital Signs (Past 12 Hours) Vital Signs Temp Pulse Pulse Resp BP BP Pulse Ox 01/06/24 17:40 74 18 142/75 H 99 01/06/24 15:00 78 01/06/24 11:03 36.8 C 01/06/24 10:56 36.8 C 72 17 116/60 96 01/06/24 08:58 01/06/24 08:00 89 23 125/72 96 01/06/24 07:13 36.8 C O2 Del Method 01/06/24 17:40 Room Air 01/06/24 15:00 01/06/24 11:03 01/06/24 10:56 Room Air 01/06/24 08:58 Room Air 01/06/24 08:00 Room Air 01/06/24 07:13 PG Care Time/CCT Total # of Minutes Spent Total Time Spent with Patient: Total time spent is greater than 50% in coordination of care (as documented) at patient's floor/unit and/or counseling patient: Coding Level of Care Code 99626 SUB INP/OBS CARE 3/50MIN Diagnoses Sepsis A41.9 Sepsis acute organ dysfunction status: unspecified Sepsis type: sepsis due to unspecified organism High anion gap metabolic acidosis E87.29 Acute renal failure N17.9 Atrial fibrillation with rapid ventricular response I48.91 Pleural effusion, right J90 Elevated troponin R79.89 DM II (diabetes mellitus, type II), controlled E11.9 (1) Sepsis Sepsis acute organ dysfunction status: unspecified Sepsis type: sepsis due to unspecified organism Qualified Code(s): A41.9 - Sepsis, unspecified organism
--- NOTE | 2024-01-06 18:02 | XRay Report ---
XR chest 1V portable CLINICAL HISTORY: central line placement TECHNIQUE: Single frontal radiograph of the chest was obtained. Comparison: Comparison is made to chest radiograph 01/06/2024 FINDINGS: Right chest tube is seen. No venous catheter is seen within the field of view. Cardiomegaly is noted. Small to moderate right pleural effusion is seen, slightly increased from prior exam. IMPRESSION: 1. No venous catheter is seen within the field of view. 2. Right pleural effusion has somewhat increased from prior exam. Right chest tube remains in place. ACT 112: Negative or not required by law. Electronically signed by: Andrea Guillermo M.D. 01/06/2024 6:01 PM
[2024-01-06 21:38] LABS: BUN Creatinine Ratio 20.8 (10-20); Calcium 7.8 mg/dl (8.6-10.3); Creatinine Clr Calc Pharmacy 17.6 ml/min; Est GFR (African American) 16.6 ml/min; Est GFR (Non-African American) 14.3 ml/min
[2024-01-06] MEDS: DIGOXIN 250 MCG in SYRINGE 9 ML IV ONE (21:53)
--- NOTE | 2024-01-06 23:00 | Communication Note ---
Date of Service: January 06, 2024 Patient started to have tachycardia in the 140s with EKG showing A-fib with RVR and blood pressure is 105/63. Will give a dose of 250 mcg digoxin and 500 cc bolus of NSS. Will monitor closely through the night.
[2024-01-06] MEDS: SODIUM CHLORIDE 0.9% 500 ML IV ONE (23:25)
[2024-01-07 06:02] LABS: Hematocrit (blood only) 39.4 % (42.0-52.0); Mean Corpuscular Hemoglobin 28.1 pg (25.0-34.0); Mean Corpuscular Volume 85.3 fL (80.0-100.0); Mean Platelet Volume 9.9 fL (9.4-12.4); Platelet Count 375 K/uL (130-400); RDW Coefficient of Variation 13.1 % (11.5-14.5); RDW Standard Deviation 40.3 fL (36.4-46.3); Red Blood Count 4.62 M/uL (4.70-6.10); White Blood Count 11.53 K/ul (4.8-10.8)
[2024-01-07 06:07] LABS: Albumin Globulin Ratio 0.6 (0.9-2); Albumin Level 2.4 gm/dl (3.4-5.0); BUN Creatinine Ratio 19.9 (10-20); Calcium 7.5 mg/dl (8.6-10.3); Creatinine Clr Calc Pharmacy 17.2 ml/min; Est GFR (African American) 16.9 ml/min; Est GFR (Non-African American) 14.6 ml/min; Magnesium 2.7 mg/dl (1.7-2.4); Potassium 4.1 mmol/L (3.5-5.1); Total Protein 6.4 gm/dl (6.0-8.3)
[2024-01-07 06:15] LABS: INR 1.2 (0.9-1.1); Prothrombin Time 13.3 Seconds (9.0-12.0)
[2024-01-07 06:47] LABS: Basophils # (auto) 0.01 K/uL (0.00-0.20); Basophils % (auto) 0.1 %; Dohle Bodies 1+; Echinocytes 1+; Immature Granulocytes % (auto) 0.9 %; Lymphocytes # (auto) 1.67 K/uL (1.20-3.40); Lymphocytes % (auto) 14.5 %; Monocytes % (auto) 10.4 %; Neutrophils # (auto) 8.55 K/uL (1.40-6.50); Neutrophils % (auto) 74.1 %
--- NOTE | 2024-01-07 07:17 | XRay Report ---
XR chest 1V portable CLINICAL HISTORY: Chest tube ? MIST 2 protocol COMPARISON STUDY: Chest radiograph January 06, 2024. FINDINGS: Right basilar pleural catheter remains in place. The right pleural effusion has significant ly decreased in size. There is trace pleural gas and a small residual right pleural effusion. Right l ower lung hazy opacity is present. Right lung aeration has improved. Cardiomediastinal silhouette is stable. IMPRESSION: 1. Right basilar pleural catheter in place. Significant decrease in size of the right pleural effusio n. Small residual right pleural effusion with trace pneumothorax. 2. Interval improvement in right lung aeration. ACT 112: Negative or not required by law. Electronically signed by: Paulo Tellez M.D. 01/07/2024 7:16 AM
[2024-01-07 07:34] LABS: C Reactive Protein 38.81 mg/dl (0-0.5)
[2024-01-07] MEDS: LANTUS PER UNIT CHARGE SC SCH (08:33)
--- NOTE | 2024-01-07 08:36 | Nephrology Progress Note ---
Date of Service January 07, 2024 Assessment & Plan (1) Acute renal failure: Plan: * MARY likely ATN related to sepsis, pneumonia, new onset atrial fibrillation. No recent exposure to known nephrotoxic agents. * 01/[address] negative for obstruction * Patient has received volume resuscitation in EMD. He remains hemodynamically stable. RA SaO2 95% * Garcia catheter in place draining clear yellow urine. UO 1870 cc last 24 hours * Urinalysis negative for ATN casts * Electrolyte balance is acceptable. No acute indication for HD today * Monitor PRP, UO (2) Sepsis: Plan: * Probable RLL pneumonia w/ parapneumonic effusion * Pleural fluid + for Streptococcus * Blood cultures are NGTD * On empiric IV Zosyn (3) Atrial fibrillation with rapid ventricular response: Plan: * A. fib w/ RVR overnight * 01/04 Echocardiogram: LVEF 50-55%, normal LV wall motion, no significant valvular disease * Hemodynamically stable Admission and Anticipated Discharge Date Admission Date: January 05, 2024 Subjective Mr. Islas was evaluated in the ICU this morning. He c/o discomfort from his pleural catheter. Garcia catheter remains in place draining clear, yellow urine. UO 1870 cc last 24 hours Review of Systems Constitutional: no fever Eyes: no problem reported Ear, Nose, Mouth, Throat: no problem reported Respiratory: no cough and no dyspnea Cardiovascular: no chest pain Gastrointestinal: no abdominal pain, no nausea, no vomiting and no diarrhea/loose stools Genitourinary: no dysuria or no hematuria Integumentary: no rash Physical Exam Constitutional: + thin; not in distress Eyes: PERRL, conjunctivae normal, anicteric sclerae ENMT: external ear and nose normal, oropharynx normal Neck: trachea midline, no thyromegaly Respiratory: Auscultation: + diminished lung sounds (R base. Pleural catheter in place) Cardiovascular: Rate/Rhythm: + irregularly irregular Gastrointestinal (Abdomen): normal bowel sounds, soft, nontender, no hepatosplenomegaly Skin: no rashes, warm and dry Neurologic: Speech / Cognition: normal speech and normal cognition Results & Data Vital Signs (Past 12 Hours) Vital Signs Temp Pulse Pulse Resp BP Pulse Ox O2 Del Method 01/07/24 03:00 37.1 C 72 19 110/53 L 95 Room Air 01/07/24 01:00 125 H 25 H 97/64 L 95 Room Air 01/07/24 00:00 111 H 01/06/24 22:20 111 H 17 93/65 L 92 Room Air 01/06/24 21:53 116 H 01/06/24 21:00 140 H 105/63 Laboratory Results Laboratory Results - last 24 hr 01/05/24 01/06/24 01/06/24 16:20 04:55 11:00 WBC RBC Hgb Hct MCV MCH MCHC RDW Std Deviation RDW Coeff of Aly Plt Count MPV Immature Gran % (Auto) Neut % (Auto) Lymph % (Auto) Walker % (Auto) Eos % (Auto) Baso % (Auto) Neut # (Auto) Lymph # (Auto) Walker # (Auto) Eos # (Auto) Baso # (Auto) Immature Gran # (Auto) Dohle Bodies Echinocytes PT INR Sodium Potassium Chloride Carbon Dioxide Anion Gap BUN Creatinine Est Cr Clr Drug Dosing Est GFR ( Amer) Est GFR (Non-Af Amer) BUN/Creatinine Ratio Glucose POC Glucose 109 H Estimat Average Glucose 186 Hemoglobin A1c 8.1 H Calcium Magnesium Total Bilirubin AST ALT Alkaline Phosphatase C-Reactive Protein Total Protein Albumin Globulin Albumin/Globulin Ratio Procalcitonin Urine Color Urine Appearance Urine pH Ur Specific [place] Urine Protein Urine Glucose (UA) Urine Ketones Urine Blood Urine Nitrite Urine Bilirubin Urine Urobilinogen Ur Leukocyte Esterase Urine WBC (Auto) Urine RBC (Auto) U Hyaline Cast (Auto) U Epithel Cells (Auto) Urine Bacteria (Auto) Uric Acid Crystals Granular Casts Ur Random Creatinine U Random Total Protein Protein/Creatinin Ratio Fluid Slide Review 01/06/24 01/06/24 01/06/24 11:27 16:17 20:48 WBC RBC Hgb Hct MCV MCH MCHC RDW Std Deviation RDW Coeff of Aly Plt Count MPV Immature Gran % (Auto) Neut % (Auto) Lymph % (Auto) Walker % (Auto) Eos % (Auto) Baso % (Auto) Neut # (Auto) Lymph # (Auto) Walker # (Auto) Eos # (Auto) Baso # (Auto) Immature Gran # (Auto) Dohle Bodies Echinocytes PT INR Sodium Potassium Chloride Carbon Dioxide Anion Gap BUN Creatinine Est Cr Clr Drug Dosing Est GFR ( Amer) Est GFR (Non-Af Amer) BUN/Creatinine Ratio Glucose POC Glucose 138 H 203 H Estimat Average Glucose Hemoglobin A1c Calcium Magnesium Total Bilirubin AST ALT Alkaline Phosphatase C-Reactive Protein Total Protein Albumin Globulin Albumin/Globulin Ratio Procalcitonin Urine Color Yellow Urine Appearance Turbid A Urine pH 5.5 Ur Specific [place] 1.021 Urine Protein 2+ H Urine Glucose (UA) Negative Urine Ketones 1+ H Urine Blood 3+ H Urine Nitrite Negative Urine Bilirubin Negative Urine Urobilinogen Negative Ur Leukocyte Esterase Negative Urine WBC (Auto) 0-5 Urine RBC (Auto) >20 H U Hyaline Cast (Auto) 11-20 H U Epithel Cells (Auto) 6-10 H Urine Bacteria (Auto) None Seen Uric Acid Crystals Present A Granular Casts Present A Ur Random Creatinine 77.2 U Random Total Protein 158.2 H Protein/Creatinin Ratio 2.0 H Fluid Slide Review 01/06/24 01/07/24 01/07/24 21:01 05:20 07:11 WBC 11.53 H RBC 4.62 L Hgb 13.0 L Hct 39.4 L MCV 85.3 MCH 28.1 MCHC 33.0 RDW Std Deviation 40.3 RDW Coeff of Aly 13.1 Plt Count 375 MPV 9.9 Immature Gran % (Auto) 0.9 Neut % (Auto) 74.1 Lymph % (Auto) 14.5 Walker % (Auto) 10.4 Eos % (Auto) 0.0 Baso % (Auto) 0.1 Neut # (Auto) 8.55 H Lymph # (Auto) 1.67 Walker # (Auto) 1.20 H Eos # (Auto) 0.00 Baso # (Auto) 0.01 Immature Gran # (Auto) 0.10 Dohle Bodies 1+ Echinocytes 1+ PT 13.3 H INR 1.2 H Sodium 131 L 131 L Potassium 4.0 4.1 Chloride 94 L 96 L Carbon Dioxide 15 L 17 L Anion Gap 22 H 18 H BUN 85 H 80 H Creatinine 4.09 H 4.03 H Est Cr Clr Drug Dosing 17.6 17.2 Est GFR ( Amer) 16.6 16.9 Est GFR (Non-Af Amer) 14.3 14.6 BUN/Creatinine Ratio 20.8 H 19.9 Glucose 221 H 240 H POC Glucose 214 H Estimat Average Glucose Hemoglobin A1c Calcium 7.8 L 7.5 L Magnesium 2.7 H Total Bilirubin 1.0 AST 138 H ALT 48 Alkaline Phosphatase 109 H C-Reactive Protein 38.81 H Total Protein 6.4 Albumin 2.4 L Globulin 4.0 Albumin/Globulin Ratio 0.6 L Procalcitonin 88.10 H Urine Color Urine Appearance Urine pH Ur Specific [place] Urine Protein Urine Glucose (UA) Urine Ketones Urine Blood Urine Nitrite Urine Bilirubin Urine Urobilinogen Ur Leukocyte Esterase Urine WBC (Auto) Urine RBC (Auto) U Hyaline Cast (Auto) U Epithel Cells (Auto) Urine Bacteria (Auto) Uric Acid Crystals Granular Casts Ur Random Creatinine U Random Total Protein Protein/Creatinin Ratio Fluid Slide Review PG Care Time/CCT Total # of Minutes Spent Total Time Spent with Patient: Total time spent is greater than 50% in coordination of care (as documented) at patient's floor/unit and/or counseling patient: Coding Level of Care Code 69365 SUB INP/OBS CARE 3/50MIN Diagnoses Acute renal failure N17.9 Acute renal failure type: unspecified Sepsis A41.9 Sepsis acute organ dysfunction status: unspecified Sepsis type: sepsis due to unspecified organism Atrial fibrillation with rapid ventricular response I48.91 (1) Acute renal failure Acute renal failure type: unspecified Qualified Code(s): N17.9 - Acute kidney failure, unspecified (2) Sepsis Sepsis acute organ dysfunction status: unspecified Sepsis type: sepsis due to unspecified organism Qualified Code(s): A41.9 - Sepsis, unspecified organism
--- NOTE | 2024-01-07 11:47 | Pharmacy Report ---
Pharmacy Glycemic Short Note 2 - Date of Service January 07, 2024 - Glycemic Short BSG Results (Last 24 hours): 01/06/24 01/06/24 01/06/24 16:17 20:48 21:01 Glucose 221 H POC Glucose 138 H 203 H 01/07/24 01/07/24 01/07/24 05:20 07:11 11:14 Glucose 240 H POC Glucose 214 H 195 H OUTPATIENT ANTIDIABETIC REGIMEN: * Novolin R 15 units SQ daily, Novolin R SSI * A1c 8.1% 01/04 ASSESSMENT: 01/06: * Scr remains elevated at 4.03. * Patient continues on a diet but carb consumption is on the lower side. * BSGs yesterday were 50-063-248-and 203 mg/dL and fasting this morning was 214 mg/dL. * Given elevation in fasting today, will order a conservative dose of lantus, keeping in mind the continued MARY and poor oral intake. Will also tighten CR in novolog scale. 01/05 * SCr 4.02 thia AM. T2DM diet now ordered. BSGs trended downward and patient has not received insulin since yesterday at lunch. * Will continue to hold basal at this time given increased SCR. * Novolog carb ratio loosened, continue with current correction factor. 01/04 * 63 year old admitted with hyperglycemia, poor oral intake, MARY, concerns for sepsis/dehydration, metabolic acidosis, afib. Concerns for pneumonia noted on CT. Scr up to 3.98 mg/dL - per notes, baseline Scr closer to 0.95 per records 2021. Elevated anion gap on admission, provider notes report likely related to acute renal failure. Provider repeating labs again this afternoon, still pending. * DM2 diabetic - pharmacy consulted for glycemic control. Patient NPO - reasonable to start novolog for now and see how BSGs trend. Unknown A1c - will order for tomorrow AM. Given 5 units SQ insulin at lunch time, will continue with novolog Q6 hour checks. PLAN FOR INPATIENT GLYCEMIC CONTROL: * Hold outpatient oral diabetes medications * Basal insulin * Lantus - 10 units SC X 1 this morning * Bolus insulin * NovoLog per scale ACHS or Q6hrs while NPO * Goal Range: Low 110 mg/dL - High 140 mg/dL * Correction Factor: 35 mg/dL/unit * Nutritional / Prandial insulin per carb ratio of 1 unit per 12 grams CHO consumed
--- NOTE | 2024-01-07 12:16 | Critical Care Progress Note ---
Date of Service January 07, 2024 Assessment & Plan (1) Pleural effusion, right: (2) Empyema: (3) Acute pneumonia: (4) Sepsis: Plan 63 y/o male with PMH of DM2 and adjustment disorder admitted due to severe sepsis, acute renal failure and pleural effusion found to be empyema Output from pigtail catheter has been excellent. Chest x-ray significantly improved. Will complete mist 2 protocol. Continue Zosyn. Pleural fluid cultures positive for Streptococcus. Sensitivities and final speciation pending. Will likely repeat a CT chest in the next 1 to 2 days. Rest of medical management pain control per primary team. Thank you for the consult. Will continue to follow. Admission and Anticipated Discharge Date Admission Date: January 05, 2024 Subjective Patient seen and examined. Breathing is stable and sats are 99% on room air. Patient has had significant drainage from right pigtail catheter approximately 2.4 L since insertion. Review of Systems Review of Systems: All systems reviewed & are unremarkable except as noted in HPI & below Physical Exam Constitutional: + thin, cooperative and comfortable; no acute distress Eyes: PERRL, conjunctivae normal, anicteric sclerae Respiratory: normal respiratory effort; no respiratory distress and no labored breathing Auscultation: + rhonchi; breath sounds present Cardiovascular: RRR, no murmur, no edema Gastrointestinal (Abdomen): normal bowel sounds, soft, nontender, no hepatosplenomegaly Musculoskeletal: no cyanosis or clubbing, extremities motor strength 5/5 Neurologic: moves all extremities and awake Results & Data Results & Data Vital Signs (Past 12 Hours) Vital Signs Temp Pulse Pulse Resp BP BP Pulse Ox 01/07/24 12:00 75 01/07/24 12:00 01/07/24 11:09 72 5 L 01/07/24 11:00 129/66 01/07/24 11:00 129/66 01/07/24 10:51 72 17 01/07/24 10:00 106/61 99 01/07/24 10:00 73 23 01/07/24 10:00 01/07/24 09:03 74 12 01/07/24 09:00 105/61 01/07/24 09:00 105/61 01/07/24 09:00 105/61 01/07/24 08:57 75 23 01/07/24 08:06 74 13 99 01/07/24 08:00 110/68 01/07/24 08:00 110/68 01/07/24 07:54 80 21 01/07/24 07:00 114/66 01/07/24 07:00 81 23 97 01/07/24 06:00 133/75 01/07/24 03:54 70 20 96 01/07/24 03:00 37.1 C 72 19 110/53 L 95 01/07/24 01:00 125 H 25 H 97/64 L 95 Pulse Ox O2 Del Method O2 Del Method 01/07/24 12:00 01/07/24 12:00 99 Room Air 01/07/24 11:09 01/07/24 11:00 01/07/24 11:00 01/07/24 10:51 01/07/24 10:00 Room Air 01/07/24 10:00 01/07/24 10:00 Room Air 01/07/24 09:03 01/07/24 09:00 01/07/24 09:00 01/07/24 09:00 01/07/24 08:57 01/07/24 08:06 Room Air 01/07/24 08:00 01/07/24 08:00 01/07/24 07:54 01/07/24 07:00 01/07/24 07:00 01/07/24 06:00 01/07/24 03:54 01/07/24 03:00 Room Air 01/07/24 01:00 Room Air Coding Level of Care Code 17856 SUB INP/OBS CARE 2/35MIN Diagnoses Pleural effusion, right J90 Empyema J86.9 Acute pneumonia J18.9 Sepsis A41.9 Sepsis acute organ dysfunction status: unspecified Sepsis type: sepsis due to unspecified organism (4) Sepsis Sepsis acute organ dysfunction status: unspecified Sepsis type: sepsis due to unspecified organism Qualified Code(s): A41.9 - Sepsis, unspecified organism
--- NOTE | 2024-01-07 13:46 | Cardiology Progress Note ---
Date of Service January 07, 2024 Assessment & Plan (1) Atrial fibrillation with rapid ventricular response: Plan Recurrent atrial fibrillation overnight, well-tolerated. Will initiate low-dose metoprolol, his BP while in sinus should be adequate and initiation of beta-dane may actually help avoid development of hypotension which seems to occur when he has rapid response to atrial fibrillation. Although reasonable to use digoxin IV (as was done last night) for chronic rate control, much lower utility for acute process in the setting of hyperadrenergic milieu. Beta-dane preferable. Hold on anticoagulation given bloody pleural drainage, no immediate need for anticoagulation as long as his atrial fibrillation is not sustained for more than 24-48 hours. Admission and Anticipated Discharge Date Admission Date: January 05, 2024 Subjective Had recurrent atrial fibrillation with rapid ventricular response for about 6 hours last night (from 8 PM till 2 AM), apparently asymptomatic. He had no somatic complaints at the time of my evaluation today. Physical Exam Physical Exam: No distress. Normotensive. Pulse 68 bpm and regular. Skin: no ecchymoses or generalized lesions. HEENT: unremarkable. Neck: JVP at the clavicle at 90 degrees, no carotid bruits. Lungs: Cardiac: regular rhythm, normal S1-2, no murmur. Abdomen: benign. Extremities: no edema, pulses intact. Neurologic: normal affect and conversation, nonfocal. Results & Data Diagnostic Findings Chest x-ray today showed improved aeration right lung with a small right pleural effusion and right basilar pleural catheter in place. PG Care Time/CCT Total # of Minutes Spent Total Time Spent with Patient: Total time spent is greater than 50% in coordination of care (as documented) at patient's floor/unit and/or counseling patient: Coding Level of Care Code 74075 SUB INP/OBS CARE 3/50MIN Diagnoses Atrial fibrillation with rapid ventricular response I48.91
--- NOTE | 2024-01-07 14:54 | Electrocardiogram Report ---
Test Reason : Blood Pressure : / mmHG Vent. Rate : 133 BPM Atrial Rate : 357 BPM P-R Int : 000 ms QRS Dur : 090 ms QT Int : 346 ms P-R-T Axes : 000 074 031 degrees QTc Int : 514 ms Atrial flutter with variable A-V block Abnormal ECG When compared with ECG of 05-JAN-2024 15:13, Atrial flutter has replaced Sinus rhythm Vent. rate has increased BY 59 BPM Confirmed by Sherman Shin ([id number] on 01/07/2024 2:54:35 PM Referred By: [facility] Confirmed By:Sherman Shin
[2024-01-07] MEDS: METOPROLOL TARTRATE 25 MG TAB PO STA (15:33)
[2024-01-07] MEDS: METOPROLOL TARTRATE 25 MG TAB PO SCH (21:58)
--- NOTE | 2024-01-07 22:03 | Hospitalist Progress Note ---
Date of Service January 07, 2024 Assessment & Plan (1) Sepsis: Plan: -Admit to the PCU on tele and pulse oximetry -Currently hemodynamically stable, with HR in the low 100's, and otherwise stable at the time of the admission -Presented to the [facility] ED from [facility] due to multiple days of poor oral intake, hyperglycemia, and generalized weakness this am -Found to be in new onset atrial fibrillation with HR in the 120's, with WBC of 20, with possible right airspace opacity on CXR -Initial lactate of 10 -->4.2 after 3.5 L NSS given between EMS and the ED -Procal is elevated at 50. Appears to be empyema. Patient with chest tube placed. Currently draining. Pleural effusion is showing streptococcus, awaiting sensitivities. Awaiting culture. (2) High anion gap metabolic acidosis: Plan: -AG of 27, bicarb of 12 -Initial lactate of 10 -VBG in the ED with pH of 7.36, pCO2 of 25, and pO2 of 21 -Likely due to sepsis, dehydration, and acute renal failure -Will follow UA when obtained to monitor for signs of ketosis -Patient has received approximately 3.5L NSS between EMS transport and while in the ED -Repeat lactate improving to 4.2 -Will hold additional IV fluids until CT of the abd/pelvis is read as we do not want to volume overload him if he is in acute renal failure -Will continue to monitor lactate until he is stable (3) Acute renal failure: Plan: -Cr of 3.98 today, last base is 0.95 as of 2021 per [facility]'s labs -Patient had not been able to urinate since arrival, confirms this is not normal for him -Bladder scan at the time of admission was 200 cc -Electrolytes are currently stable, no indication for emergent/urgent dialysis at the time of admission -Patient did have some recent right flank pain with possible right CVA tenderness on exam -Will obtain stat CT of the abd/pelvis wo con at the time of admission to monitor for obstruction -Will monitor intake/output q6h -Will hold additional IV fluids until CT of the abd/pelvis is read in case he has an obstruction -If needed, will speak to the patient again regarding possible cali placement -Nephrology consult placed -Avoid nephrotoxic agents (4) Atrial fibrillation with rapid ventricular response: Plan: -Patient found to be in new-onset afib RVR with HR in the 120's on arrival -Potassium of 4.6, mag of 2.7 -Will add on TSH level -Likely due to his acute illness and renal failure -HR is currently stable in the low 100's at the time of exam, will not be overly aggressive with rate reduction on admission to avoid suppressing his reactive tacycardia with sepsis -Will start PRN 5 mg IV Lopressor q5m PRN sustained HR > 130 BPM for now, max 3 doses -Patient will be started on low dose, weight based heparin drip wo bolus for anticoagulation - Cardiology consult and TTE on admission (5) Pleural effusion, right: Plan: -Patient noted to have a moderate right pleural effusion on CXR today -Possible associated airspace opacity as well -Currently in no respiratory distress and stable on RA -empyema -Continue incentive spirometry,flutter therapy, prn O2 to keep SpO2 at or above 94% (6) Elevated troponin: Plan: -Initial high sen trop elevated at 57 -Patient is without chest pain or acute ST segment/T-wave changes on ECG -Likely due to demand with sepsis, acute renal failure, and afib RVR on arrival -2 hour repeat high sen trop is in process -Will continue to monitor on tele, continue to trend high sen trop q6h overnight -Will follow cardiology consult and TTE ordered on admission (7) DM II (diabetes mellitus, type II), controlled: Plan: -Normally takes 15 units SQ Novolin R in the am with SSI -Did have his am dose of basal insulin prior to arrival -Will start q6h BSG checks, goal is 110-160 for now -Start CF of 50 and CR 15 for now -Will hold basal insulin with acute renal failure -Keeping NPO until CT of abd/pelvis is read -Pharmacy glycemic consult has been place due to patient's multiple acute abnormalities on admission Admission and Anticipated Discharge Date Admission Date: January 05, 2024 Subjective 63 yo male reports no new symptoms. Patient is tolerating room air. Review of Systems Review of Systems: All systems reviewed & are unremarkable except as noted in HPI & below Physical Exam Physical Exam: General: In no acute distress HEENT: Normocephalic, atraumatic Chest/Pulm: CTA throughout/ chest tube placed. Cardiac: irregular rate and rhythm, no murmurs noted Abdomen: Negative for ascites and bruising, normoactive bowel sounds, soft, Musculoskeletal: Symmetrical and without signs of acute trauma, upper and lower extremities with full ROM, no atrophy, spasticity, or flaccidity Extremities: Radial, dorsalis pedis, and posterior tibial pulses are intact and symmetrical, no edema noted in the BL LE's Results & Data Results & Data Vital Signs (Past 12 Hours) Vital Signs Temp Pulse Pulse Resp BP BP Pulse Ox 01/07/24 20:46 01/07/24 19:43 36.3 C L 70 18 117/69 96 01/07/24 14:57 01/07/24 14:46 36.3 C L 69 18 124/71 98 01/07/24 13:00 135/64 01/07/24 13:00 68 14 99 01/07/24 12:09 74 99 01/07/24 12:00 122/67 01/07/24 12:00 75 01/07/24 12:00 01/07/24 11:27 73 25 H 01/07/24 11:09 72 5 L 01/07/24 11:00 129/66 01/07/24 11:00 129/66 01/07/24 10:51 72 17 Pulse Ox O2 Del Method O2 Del Method 01/07/24 20:46 Room Air 01/07/24 19:43 Room Air 01/07/24 14:57 Room Air 01/07/24 14:46 Room Air 01/07/24 13:00 01/07/24 13:00 01/07/24 12:09 Room Air 01/07/24 12:00 01/07/24 12:00 01/07/24 12:00 99 Room Air 01/07/24 11:27 01/07/24 11:09 01/07/24 11:00 01/07/24 11:00 01/07/24 10:51 PG Care Time/CCT Total # of Minutes Spent Total Time Spent with Patient: Total time spent is greater than 50% in coordination of care (as documented) at patient's floor/unit and/or counseling patient: Coding Level of Care Code 56136 SUB INP/OBS CARE 2/35MIN Diagnoses Sepsis A41.9 Sepsis acute organ dysfunction status: unspecified Sepsis type: sepsis due to unspecified organism High anion gap metabolic acidosis E87.29 Acute renal failure N17.9 Atrial fibrillation with rapid ventricular response I48.91 Pleural effusion, right J90 Elevated troponin R79.89 DM II (diabetes mellitus, type II), controlled E11.9 (1) Sepsis Sepsis acute organ dysfunction status: unspecified Sepsis type: sepsis due to unspecified organism Qualified Code(s): A41.9 - Sepsis, unspecified organism
[2024-01-08 07:14] LABS: Hematocrit (blood only) 35.4 % (42.0-52.0); Hemoglobin 12.1 g/dl (14.0-18.0); Mean Corpuscular Hemoglobin 28.4 pg (25.0-34.0); Mean Corpuscular Hgb Conc 34.2 g/dL (32.0-36.0); Mean Corpuscular Volume 83.1 fL (80.0-100.0); Mean Platelet Volume 9.6 fL (9.4-12.4); Platelet Count 364 K/uL (130-400); RDW Coefficient of Variation 13.9 % (11.5-14.5); RDW Standard Deviation 42.3 fL (36.4-46.3); Red Blood Count 4.26 M/uL (4.70-6.10); White Blood Count 13.04 K/ul (4.8-10.8)
--- NOTE | 2024-01-08 07:19 | XRay Report ---
XR chest 1V portable CLINICAL HISTORY: Chest tube ? MIST 2 protocol TECHNIQUE: Single frontal radiograph of the chest was obtained. Comparison: Comparison is made to chest radiograph 01/07/2024 FINDINGS: Right chest tube is again seen. Cardiomegaly is noted. Right lower lobe airspace opacity is again see n. Small right pleural effusion. IMPRESSION: Small right pleural effusion with underlying airspace opacity. No evidence of pneumothorax in this pa tient with a right-sided chest tube. ACT 112: Negative or not required by law. Electronically signed by: Andrea Guillermo M.D. 01/08/2024 7:18 AM
[2024-01-08 07:33] LABS: Basophils # (auto) 0.02 K/uL (0.00-0.20); Basophils % (auto) 0.2 %; Dohle Bodies 1+; Eosinophils # (auto) 0.13 K/uL (0.00-0.50); Immature Granulocytes # (auto) 0.18 K/uL (0.01-0.20); Immature Granulocytes % (auto) 1.4 %; Lymphocytes # (auto) 2.09 K/uL (1.20-3.40); Monocytes # (auto) 1.26 K/uL (0.11-0.59); Monocytes % (auto) 9.7 %; Neutrophils # (auto) 9.36 K/uL (1.40-6.50); Neutrophils % (auto) 71.7 %
[2024-01-08 07:34] LABS: INR 1.1 (0.9-1.1); Prothrombin Time 12.3 Seconds (9.0-12.0)
[2024-01-08 07:40] LABS: Albumin Globulin Ratio 0.6 (0.9-2); Albumin Level 2.3 gm/dl (3.4-5.0); BUN Creatinine Ratio 21.1 (10-20); Bilirubin,Total 0.9 mg/dl (0.2-1.0); C Reactive Protein 26.42 mg/dl (0-0.5); Calcium 7.5 mg/dl (8.6-10.3); Creatinine Clr Calc Pharmacy 18.1 ml/min; Est GFR (Non-African American) 15.5 ml/min; Globulin 4.1 gm/dl (2.5-4.0); Magnesium 2.7 mg/dl (1.7-2.4); Potassium 3.4 mmol/L (3.5-5.1); Total Protein 6.4 gm/dl (6.0-8.3)
--- NOTE | 2024-01-08 09:03 | Nephrology Progress Note ---
Date of Service January 08, 2024 Assessment & Plan (1) Acute renal failure: Plan: * MARY likely ATN related to sepsis, pneumonia, new onset atrial fibrillation. No recent exposure to known nephrotoxic agents. * 01/[address] negative for obstruction * Garcia catheter in place draining clear yellow urine. UO 1870 cc last 24 hours * Urinalysis negative for ATN casts * Creatinine is now trending down. Patient appears to be entering the recovery phase of ATN. * Electrolyte balance is acceptable. No acute indication for HD today * Monitor PRP, UO (2) Sepsis: Plan: * Probable RLL pneumonia w/ parapneumonic effusion * Await results of chest CT completed this am * Pleural fluid + for Streptococcus * Blood cultures are NGTD * On empiric IV Zosyn (3) Atrial fibrillation with rapid ventricular response: Plan: * A. fib w/ RVR overnight * 01/04 Echocardiogram: LVEF 50-55%, normal LV wall motion, no significant valvular disease * Hemodynamically stable Admission and Anticipated Discharge Date Admission Date: January 05, 2024 Subjective Mr. Islas was evaluated in his hospital room this morning. He voiced no new medical concerns Review of Systems Constitutional: no fever Eyes: no problem reported Ear, Nose, Mouth, Throat: no problem reported Respiratory: no cough and no dyspnea Cardiovascular: no chest pain Gastrointestinal: no abdominal pain, no nausea, no vomiting and no diarrhea/loose stools Genitourinary: no dysuria or no hematuria Integumentary: no rash Physical Exam Constitutional: + thin; not in distress Eyes: PERRL, conjunctivae normal, anicteric sclerae ENMT: external ear and nose normal, oropharynx normal Neck: trachea midline, no thyromegaly Respiratory: Auscultation: + diminished lung sounds (R base. Pleural catheter in place) Cardiovascular: Rate/Rhythm: + irregularly irregular Gastrointestinal (Abdomen): normal bowel sounds, soft, nontender, no hepatosplenomegaly Skin: no rashes, warm and dry Neurologic: Speech / Cognition: normal speech and normal cognition Results & Data Vital Signs (Past 12 Hours) Vital Signs Temp Pulse Pulse Resp BP Pulse Ox O2 Del Method 01/08/24 08:03 36.5 C 66 18 137/68 97 Room Air 01/08/24 02:23 36.3 C L 80 18 136/68 97 Room Air 01/07/24 23:21 67 01/07/24 22:36 36.5 C 66 18 126/72 97 Room Air Laboratory Results Laboratory Results - last 24 hr 01/07/24 01/07/24 01/07/24 11:14 16:23 19:58 WBC RBC Hgb Hct MCV MCH MCHC RDW Std Deviation RDW Coeff of Aly Plt Count MPV Immature Gran % (Auto) Neut % (Auto) Lymph % (Auto) Cache % (Auto) Eos % (Auto) Baso % (Auto) Neut # (Auto) Lymph # (Auto) Cache # (Auto) Eos # (Auto) Baso # (Auto) Immature Gran # (Auto) Dohle Bodies PT INR Sodium Potassium Chloride Carbon Dioxide Anion Gap BUN Creatinine Est Cr Clr Drug Dosing Est GFR ( Amer) Est GFR (Non-Af Amer) BUN/Creatinine Ratio Glucose POC Glucose 195 H 234 H 185 H Calcium Magnesium Total Bilirubin AST ALT Alkaline Phosphatase C-Reactive Protein Total Protein Albumin Globulin Albumin/Globulin Ratio 01/08/24 01/08/24 06:26 08:02 WBC 13.04 H RBC 4.26 L Hgb 12.1 L Hct 35.4 L MCV 83.1 MCH 28.4 MCHC 34.2 RDW Std Deviation 42.3 RDW Coeff of Aly 13.9 Plt Count 364 MPV 9.6 Immature Gran % (Auto) 1.4 Neut % (Auto) 71.7 Lymph % (Auto) 16.0 Cache % (Auto) 9.7 Eos % (Auto) 1.0 Baso % (Auto) 0.2 Neut # (Auto) 9.36 H Lymph # (Auto) 2.09 Cache # (Auto) 1.26 H Eos # (Auto) 0.13 Baso # (Auto) 0.02 Immature Gran # (Auto) 0.18 Dohle Bodies 1+ PT 12.3 H INR 1.1 Sodium 130 L Potassium 3.4 L Chloride 96 L Carbon Dioxide 20 L Anion Gap 14 H BUN 81 H Creatinine 3.83 H Est Cr Clr Drug Dosing 18.1 Est GFR ( Amer) 18.0 Est GFR (Non-Af Amer) 15.5 BUN/Creatinine Ratio 21.1 H Glucose 156 H POC Glucose 146 H Calcium 7.5 L Magnesium 2.7 H Total Bilirubin 0.9 AST 151 H ALT 57 H Alkaline Phosphatase 136 H C-Reactive Protein 26.42 H Total Protein 6.4 Albumin 2.3 L Globulin 4.1 H Albumin/Globulin Ratio 0.6 L PG Care Time/CCT Total # of Minutes Spent Total Time Spent with Patient: Total time spent is greater than 50% in coordination of care (as documented) at patient's floor/unit and/or counseling patient: Coding Level of Care Code 12688 SUB INP/OBS CARE 3/50MIN Diagnoses Acute renal failure N17.9 Acute renal failure type: unspecified Sepsis A41.9 Sepsis acute organ dysfunction status: unspecified Sepsis type: sepsis due to unspecified organism Atrial fibrillation with rapid ventricular response I48.91 (1) Acute renal failure Acute renal failure type: unspecified Qualified Code(s): N17.9 - Acute kidney failure, unspecified (2) Sepsis Sepsis acute organ dysfunction status: unspecified Sepsis type: sepsis due to unspecified organism Qualified Code(s): A41.9 - Sepsis, unspecified organism
[2024-01-08] MEDS: LANTUS PER UNIT CHARGE SC SCH (09:34)
[2024-01-08] MEDS: POTASSIUM CHLORIDE CRTAB 20 MEQ TABCR PO STA (10:02)
--- NOTE | 2024-01-08 10:50 | CT Scan Report ---
CT chest diagnostic wo con CLINICAL HISTORY: follow up empyema TECHNIQUE: Multidetector row helical CT of the chest was performed. Coronal and sagittal reformations were obtained. Automated dose lowering techniques and/or adjustment according to patient size were u tilized for this exam. CT DOSE: 581.92 mGy.cm Comparison: Comparison is made to CT chest 01/05/2024 FINDINGS: Lungs and pleura: Tree-in-bud nodularity is in the left lower lobe. Atelectasis is seen in the right lung. A right chest tube is seen with a moderate right pleural effusion with a few foci of pleural ga s as well. Heart and pericardium: Heart size is normal. No pericardial effusion. Vessels: Severe atherosclerotic changes in the aorta and coronary arteries. Mediastinum and aba: Subcentimeter lymph nodes are seen. Chest wall and lower neck: Unremarkable. Abdomen: Unremarkable. Bones: Degenerative changes in the thoracic spine. IMPRESSION: 1. Right pleural fluid collection with a few foci of gas is moderate in size, somewhat decreased in size from prior exam. 2. Right lower lung atelectasis with or without superimposed aspiration/pneumonia. Tree-in-bud nodul arity in the left lower lobe is compatible with pneumonia. ACT 112: Negative or not required by law. Electronically signed by: Andrea Guillermo M.D. 01/08/2024 10:48 AM
--- NOTE | 2024-01-08 12:09 | Cardiology Progress Note ---
Date of Service January 08, 2024 Assessment & Plan (1) Atrial fibrillation with rapid ventricular response: Plan No further atrial fibrillation overnight or today on low-dose beta-dane (metoprolol tartrate 12.5 mg p.o. every 12 hours). In the absence of hypotension, would continue this during hospitalization and convert to metoprolol succinate 25 mg daily upon discharge. Since he is maintaining sinus rhythm, could continue to hold on anticoagulation given bloody pleural drainage. Will continue to follow. Admission and Anticipated Discharge Date Admission Date: January 05, 2024 Subjective Uneventful night. No further atrial fibrillation. Right chest tube/pleural drain continues with sanguinous drainage. Patient denied dyspnea, chest pain, or palpitations. No somatic complaints. Physical Exam Physical Exam: No distress. Normotensive. Pulse 68 bpm and regular. Skin: no ecchymoses or generalized lesions. HEENT: unremarkable. Neck: JVP at the clavicle at 90 degrees, no carotid bruits. Lungs: Decreased breath sounds right base but otherwise unremarkable. Cardiac: regular rhythm, normal S1-2, no murmur. Abdomen: benign. Extremities: no edema, pulses intact. Neurologic: normal affect and conversation, nonfocal. Results & Data Vital Signs (Past 12 Hours) Vital Signs Temp Pulse Pulse Resp BP Pulse Ox O2 Del Method 01/08/24 11:09 97.3 F L 108 H 18 108/72 96 Room Air 01/08/24 10:34 Room Air 01/08/24 10:34 67 01/08/24 08:03 97.7 F 66 18 137/68 97 Room Air 01/08/24 02:23 97.3 F L 80 18 136/68 97 Room Air Laboratory Results Sodium 130, chloride 96, potassium 3.4, BUN 81, creatinine 3.83. Diagnostic Findings Chest CT today showed moderate right pleural effusion with atelectasis. Left lower lobe pneumonia PG Care Time/CCT Total # of Minutes Spent Total Time Spent with Patient: Total time spent is greater than 50% in coordination of care (as documented) at patient's floor/unit and/or counseling patient: Coding Level of Care Code 71983 SUB INP/OBS CARE 2/35MIN Diagnoses Atrial fibrillation with rapid ventricular response I48.91
--- NOTE | 2024-01-08 14:48 | Pulmonology Progress Note ---
Date of Service January 08, 2024 Assessment & Plan (1) Pleural effusion, right: (2) Empyema: (3) Acute pneumonia: (4) Sepsis: Sepsis acute organ dysfunction status: unspecified Sepsis type: sepsis due to unspecified organism Qualified Code(s): A41.9 - Sepsis, unspecified organism Plan 63 y/o male with PMH of DM2 and adjustment disorder admitted due to severe s epsis, acute renal failure and pleural effusion found to be empyema Patient completed mist [address] chest obtained which reveals a posterior dependent multiloculated pleural effusion. The current pigtail catheter appears just lateral to the effusion. I did take the dressing down, cut the suture and pull the pigtail catheter back with some improvement of drainage. He was also sent to radiology for second chest tube insertion into the middle of the dependent effusion, but the patient refuses any further pleural interventions at this time. I discussed with him that there is a high risk of morbidity and possible from septic shock related to untreated empyema which he understands. He still refuses further pleural interventions at this time. He is willing to allow us to instill further medications and fluids through the current pigtail catheter. Will initiate pleural irrigation via the pigtail catheter with 100 mL of saline every 6 hours for the next 48 hours. Pleural fluid cultures growing Streptococcus intermedius. Will de-escalate from Zosyn to Unasyn. Thank you for the consult. Will continue to follow. Admission and Anticipated Discharge Date Admission Date: January 05, [address] chest completed today which revealed a posterior multiloculated pleural effusion. Patient was sent to radiology for second chest tube insertion. Patient complaining of back pain related to the pigtail catheter. Review of Systems Review of Systems: All systems reviewed & are unremarkable except as noted in HPI & below Physical Exam Constitutional: + thin, cooperative and comfortable; no acute distress Eyes: PERRL, conjunctivae normal, anicteric sclerae Respiratory: normal respiratory effort; no respiratory distress and no labored breathing Auscultation: + rhonchi; breath sounds present Cardiovascular: RRR, no murmur, no edema Gastrointestinal (Abdomen): normal bowel sounds, soft, nontender, no hepatosplenomegaly Musculoskeletal: no cyanosis or clubbing, extremities motor strength 5/5 Neurologic: moves all extremities and awake Results & Data Results & Data Vital Signs (Past 12 Hours) Vital Signs Temp Pulse Pulse Resp BP Pulse Ox O2 Del Method 01/08/24 11:09 36.3 C L 108 H 18 108/72 96 Room Air 01/08/24 10:34 Room Air 01/08/24 10:34 67 01/08/24 08:03 36.5 C 66 18 137/68 97 Room Air PG Care Time/CCT Total # of Minutes Spent Total Time Spent with Patient: Total time spent is greater than 50% in coordination of care (as documented) at patient's floor/unit and/or counseling patient: Coding Level of Care Code 70551 SUB INP/OBS CARE 3/50MIN Diagnoses Pleural effusion, right J90 Empyema J86.9 Acute pneumonia J18.9 Sepsis A41.9 Sepsis acute organ dysfunction status: unspecified Sepsis type: sepsis due to unspecified organism
[2024-01-08] MEDS ORDERED: AMPICILLIN SOD/SULBACTAM SOD 1,500 MG in SODIUM CHLOR 0.9% MINI-B 100 ML IV SCH (15:00)
[2024-01-08] MEDS: fentaNYL citrate PF 100 MCG/2 ML VIAL ONE (16:25)
[2024-01-08] MEDS: AMPICILLIN/SULBACTAM SOD 3,000 MG in SODIUM CHLOR 0.9% MINI-B 100 ML IV SCH (16:42)
--- NOTE | 2024-01-08 21:19 | Hospitalist Progress Note ---
Date of Service January 08, 2024 Assessment & Plan (1) Sepsis: Plan: -Admit to the PCU on tele and pulse oximetry -Currently hemodynamically stable, with HR in the low 100's, and otherwise stable at the time of the admission -Presented to the [facility] ED from [facility] due to multiple days of poor oral intake, hyperglycemia, and generalized weakness this am -Found to be in new onset atrial fibrillation with HR in the 120's, with WBC of 20, with possible right airspace opacity on CXR -Initial lactate of 10 -->4.2 after 3.5 L NSS given between EMS and the ED -Procal is elevated at 50. Appears to be empyema. Patient with chest tube placed. Currently draining. Pleural effusion is showing streptococcus, awaiting sensitivities. Patient with a second effusion, however patient is refusing a seoncd chest tube. will continue to monitor. pigtail cathter irrigation. (2) High anion gap metabolic acidosis: Plan: -AG of 27, bicarb of 12 -Initial lactate of 10 -VBG in the ED with pH of 7.36, pCO2 of 25, and pO2 of 21 -Likely due to sepsis, dehydration, and acute renal failure -Will follow UA when obtained to monitor for signs of ketosis -Patient has received approximately 3.5L NSS between EMS transport and while in the ED -Repeat lactate improving to 4.2 -Will hold additional IV fluids until CT of the abd/pelvis is read as we do not want to volume overload him if he is in acute renal failure -Will continue to monitor lactate until he is stable (3) Acute renal failure: Plan: -Cr of 3.98 today, last base is 0.[address] [facility]'s labs -Patient had not been able to urinate since arrival, confirms this is not normal for him -Bladder scan at the time of admission was 200 cc -Electrolytes are currently stable, no indication for emergent/urgent dialysis at the time of admission -Patient did have some recent right flank pain with possible right CVA tenderness on exam -Will obtain stat CT of the abd/pelvis wo con at the time of admission to monitor for obstruction -Will monitor intake/output q6h -Will hold additional IV fluids until CT of the abd/pelvis is read in case he has an obstruction -If needed, will speak to the patient again regarding possible cali placement -Nephrology consult placed -Avoid nephrotoxic agents (4) Atrial fibrillation with rapid ventricular response: Plan: -Patient found to be in new-onset afib RVR with HR in the 120's on arrival -Potassium of 4.6, mag of 2.7 -Will add on TSH level -Likely due to his acute illness and renal failure -HR is currently stable in the low 100's at the time of exam, will not be overly aggressive with rate reduction on admission to avoid suppressing his reactive ta cycardia with sepsis -Will start PRN 5 mg IV Lopressor q5m PRN sustained HR > 130 BPM for now, max 3 doses -Patient will be started on low dose, weight based heparin drip wo bolus for anticoagulation - Cardiology consult and TTE on admission (5) Pleural effusion, right: Plan: -Patient noted to have a moderate right pleural effusion on CXR today -Possible associated airspace opacity as well -Currently in no respiratory distress and stable on RA -empyema -Continue incentive spirometry,flutter therapy, prn O2 to keep SpO2 at or above 94% (6) Elevated troponin: Plan: -Initial high sen trop elevated at 57 -Patient is without chest pain or acute ST segment/T-wave changes on ECG -Likely due to demand with sepsis, acute renal failure, and afib RVR on arrival -2 hour repeat high sen trop is in process -Will continue to monitor on tele, continue to trend high sen trop q6h overnight -Will follow cardiology consult and TTE ordered on admission (7) DM II (diabetes mellitus, type II), controlled: Plan: -Normally takes 15 units SQ Novolin R in the am with SSI -Did have his am dose of basal insulin prior to arrival -Will start q6h BSG checks, goal is 110-160 for now -Start CF of 50 and CR 15 for now -Will hold basal insulin with acute renal failure -Keeping NPO until CT of abd/pelvis is read -Pharmacy glycemic consult has been place due to patient's multiple acute abnormalities on admission Admission and Anticipated Discharge Date Admission Date: January 05, 2024 Subjective 63 yo male is concerned about pain from a second chest tube which is why he is refusing one. Review of Systems Review of Systems: All systems reviewed & are unremarkable except as noted in HPI & below Physical Exam Physical Exam: General: In no acute distress HEENT: Normocephalic, atraumatic Chest/Pulm: CTA throughout/ chest tube placed. Cardiac: irregular rate and rhythm, no murmurs noted Abdomen: Negative for ascites and bruising, normoactive bowel sounds, soft, Musculoskeletal: Symmetrical and without signs of acute trauma, upper and lower extremities with full ROM, no atrophy, spasticity, or flaccidity Extremities: Radial, dorsalis pedis, and posterior tibial pulses are intact and symmetrical, no edema noted in the BL LE's Results & Data Results & Data Vital Signs (Past 12 Hours) Vital Signs Temp Pulse Pulse Resp BP Pulse Ox O2 Del Method 01/08/24 19:38 36.9 C 74 18 128/70 96 Room Air 01/08/24 15:51 36.6 C 79 19 125/69 94 Room Air 01/08/24 11:09 36.3 C L 108 H 18 108/72 96 Room Air 01/08/24 10:34 Room Air 01/08/24 10:34 67 PG Care Time/CCT Total # of Minutes Spent Total Time Spent with Patient: Total time spent is greater than 50% in coordination of care (as documented) at patient's floor/unit and/or counseling patient: Coding Level of Care Code 92432 SUB INP/OBS CARE 2/35MIN Diagnoses Sepsis A41.9 Sepsis acute organ dysfunction status: unspecified Sepsis type: sepsis due to unspecified organism High anion gap metabolic acidosis E87.29 Acute renal failure N17.9 Atrial fibrillation with rapid ventricular response I48.91 Pleural effusion, right J90 Elevated troponin R79.89 DM II (diabetes mellitus, type II), controlled E11.9 (1) Sepsis Sepsis acute organ dysfunction status: unspecified Sepsis type: sepsis due to unspecified organism Qualified Code(s): A41.9 - Sepsis, unspecified organism
[2024-01-09 06:19] LABS: Hematocrit (blood only) 34.2 % (42.0-52.0); Hemoglobin 11.8 g/dl (14.0-18.0); Mean Corpuscular Hemoglobin 28.6 pg (25.0-34.0); Mean Corpuscular Hgb Conc 34.5 g/dL (32.0-36.0); Mean Platelet Volume 9.3 fL (9.4-12.4); Platelet Count 352 K/uL (130-400); RDW Coefficient of Variation 13.9 % (11.5-14.5); RDW Standard Deviation 42.2 fL (36.4-46.3); Red Blood Count 4.12 M/uL (4.70-6.10); White Blood Count 17.21 K/ul (4.8-10.8)
[2024-01-09 06:57] LABS: Calcium 7.6 mg/dl (8.6-10.3); Creatinine Clr Calc Pharmacy 19.6 ml/min; Est GFR (African American) 20.7 ml/min; Est GFR (Non-African American) 17.8 ml/min; Potassium 3.8 mmol/L (3.5-5.1)
--- NOTE | 2024-01-09 08:13 | XRay Report ---
SINGLE VIEW CHEST CLINICAL HISTORY: Chest tube. FINDINGS: An AP, portable, upright chest radiograph is compared to chest x-ray and chest CT dated 12/13. The heart is top normal for projection noting atherosclerotic calcification of the thoracic a demario. The pulmonary vasculature is noncongested. The left lung appears clear. A pleural drain is agai n seen at the right lung base. A layering right pleural effusion persists with right basilar consolid ation. No pneumothorax is clearly seen. The skeletal structures are osteopenic. The bony thorax is gr ossly intact. IMPRESSION: 1. A right-sided pleural drain is unchanged in position. 2. Residual right pleural effusion with right basilar consolidation. 3. No pneumothorax is clearly seen ACT 112: Negative or not required by law. Electronically signed by: Scotty Javier M.D. 01/09/2024 8:12 AM
--- NOTE | 2024-01-09 08:53 | Nephrology Progress Note ---
Date of Service January 09, 2024 Assessment & Plan (1) Acute renal failure: Plan: * MARY likely ATN related to sepsis, pneumonia, new onset atrial fibrillation. No recent exposure to known nephrotoxic agents. * 01/[address] negative for obstruction * Garcia catheter in place draining clear yellow urine. UO 1405 cc last 24 hours * Urinalysis negative for ATN casts * Creatinine is now trending down (Cr 4.0-->3.8-->3.41). Patient is now in the recovery phase of ATN. * Electrolyte balance is acceptable. No acute indication for HD today * Monitor PRP, UO (2) Sepsis: Plan: * Probable RLL pneumonia w/ parapneumonic effusion * 01/08/[address]: Right pleural fluid collection with a few foci of gas is moderate in size, somewhat decreased in size from prior exam. Right lower lung atelectasis with or without superimposed aspiration/pneumonia. Tree-in-bud nodularity in the left lower lobe is compatible with pneumonia. * Pleural fluid + for Streptococcus * Blood cultures are NGTD * On empiric IV Unasyn (3) Atrial fibrillation with rapid ventricular response: Plan: * Resolved * 01/04 Echocardiogram: LVEF 50-55%, normal LV wall motion, no significant valvular disease * Hemodynamically stable Admission and Anticipated Discharge Date Admission Date: January 05, 2024 Subjective Mr. Islas was evaluated in his hospital room this morning. He c/o discomfort from his pleural catheter but voiced no other concerns Review of Systems Constitutional: no fever Eyes: no problem reported Ear, Nose, Mouth, Throat: no problem reported Respiratory: no cough and no dyspnea Cardiovascular: no chest pain Gastrointestinal: no abdominal pain, no nausea, no vomiting and no diarrhea/loose stools Genitourinary: no dysuria or no hematuria Integumentary: no rash Physical Exam Constitutional: + thin; not in distress Eyes: PERRL, conjunctivae normal, anicteric sclerae ENMT: external ear and nose normal, oropharynx normal Neck: trachea midline, no thyromegaly Respiratory: Auscultation: + diminished lung sounds (R base. Pleural catheter in place) Cardiovascular: Rate/Rhythm: regular rate and regular rhythm Gastrointestinal (Abdomen): normal bowel sounds, soft, nontender, no hepatosplenomegaly Skin: no rashes, warm and dry Neurologic: Speech / Cognition: normal speech and normal cognition Results & Data Vital Signs (Past 12 Hours) Vital Signs Temp Pulse Pulse Resp BP Pulse Ox O2 Del Method 01/09/24 08:10 Room Air 01/09/24 08:10 65 01/09/24 07:56 36.5 C 62 18 131/76 98 Room Air 01/09/24 02:58 36.5 C 62 18 132/67 96 Room Air 01/09/24 00:00 71 01/08/24 23:39 36.6 C 70 18 130/68 95 Room Air Laboratory Results Laboratory Results - last 24 hr 01/08/24 01/08/24 01/08/24 11:28 17:02 20:19 WBC RBC Hgb Hct MCV MCH MCHC RDW Std Deviation RDW Coeff of Aly Plt Count MPV Sodium Potassium Chloride Carbon Dioxide Anion Gap BUN Creatinine Est Cr Clr Drug Dosing Est GFR ( Amer) Est GFR (Non-Af Amer) BUN/Creatinine Ratio Glucose POC Glucose 151 H 167 H 177 H Calcium 01/09/24 01/09/24 06:00 07:57 WBC 17.21 H RBC 4.12 L Hgb 11.8 L Hct 34.2 L MCV 83.0 MCH 28.6 MCHC 34.5 RDW Std Deviation 42.2 RDW Coeff of Aly 13.9 Plt Count 352 MPV 9.3 L Sodium 131 L Potassium 3.8 Chloride 98 Carbon Dioxide 21 Anion Gap 12 H BUN 75 H Creatinine 3.41 H D Est Cr Clr Drug Dosing 19.6 Est GFR ( Amer) 20.7 Est GFR (Non-Af Amer) 17.8 BUN/Creatinine Ratio 22.0 H Glucose 143 H POC Glucose 129 H Calcium 7.6 L PG Care Time/CCT Total # of Minutes Spent Total Time Spent with Patient: Total time spent is greater than 50% in coordination of care (as documented) at patient's floor/unit and/or counseling patient: Coding Level of Care Code 20738 SUB INP/OBS CARE 3/50MIN Diagnoses Acute renal failure N17.9 Acute renal failure type: unspecified Sepsis A41.9 Sepsis acute organ dysfunction status: unspecified Sepsis type: sepsis due to unspecified organism Atrial fibrillation with rapid ventricular response I48.91 (1) Acute renal failure Acute renal failure type: unspecified Qualified Code(s): N17.9 - Acute kidney failure, unspecified (2) Sepsis Sepsis acute organ dysfunction status: unspecified Sepsis type: sepsis due to unspecified organism Qualified Code(s): A41.9 - Sepsis, unspecified organism
--- NOTE | 2024-01-09 11:41 | Cardiology Progress Note ---
Date of Service January 09, 2024 Assessment & Plan (1) Atrial fibrillation with rapid ventricular response: Plan Doing well clinically and hemodynamically stable, but did have brief episode of atrial fibrillation this morning. Metoprolol tartrate increased from 12.5 mg every 12 hours to 25 mg every 12 hours. Upon discharge, could consolidate to metoprolol succinate 50 mg daily. Will sign off from a cardiology standpoint, if additional issues arise over the weekend please contact Dr. Enriquez as he will be covering [facility] Admission and Anticipated Discharge Date Admission Date: January 05, 2024 Subjective Uneventful night. Patient denies chest pain, dyspnea, or palpitations. No lightheadedness, presyncope, or syncope. Telemetry generally benign, but he did have several minutes of atrial fibrillation with rapid ventricular response this morning. Resolved spontaneously. Asymptomatic. Physical Exam Physical Exam: No distress. Normotensive. Pulse 72 bpm and regular. Skin: no ecchymoses or generalized lesions. HEENT: unremarkable. Neck: JVP at the clavicle at 90 degrees, no carotid bruits. Lungs: Decreased breath sounds right base but otherwise unremarkable. Right chest tube with sanguinous drainage. Cardiac: regular rhythm, normal S1-2, no murmur. Abdomen: benign. Extremities: no edema, pulses intact. Neurologic: normal affect and conversation, nonfocal. Results & Data Vital Signs (Past 12 Hours) Vital Signs Temp Pulse Pulse Resp BP Pulse Ox O2 Del Method 01/09/24 11:27 97.7 F 72 18 128/63 97 Room Air 01/09/24 08:10 Room Air 01/09/24 08:10 65 01/09/24 07:56 97.7 F 62 18 131/76 98 Room Air 01/09/24 02:58 97.7 F 62 18 132/67 96 Room Air 01/09/24 00:00 71 01/08/24 23:39 97.9 F 70 18 130/68 95 Room Air Laboratory Results Sodium 131, potassium 3.8, BUN 75, creatinine 3.41. PG Care Time/CCT Total # of Minutes Spent Total Time Spent with Patient: Total time spent is greater than 50% in coordination of care (as documented) at patient's floor/unit and/or counseling patient: Coding Level of Care Code 53195 SUB INP/OBS CARE 2/35MIN Diagnoses Atrial fibrillation with rapid ventricular response I48.91
[2024-01-09] MEDS: METOPROLOL TARTRATE 25 MG TAB PO STA (12:55)
[2024-01-09] MEDS: HYDROmorphone INJ 0.5 MG/0.5 ML SYR IV PRN (13:28)
--- NOTE | 2024-01-09 14:15 | Pharmacy Report ---
Pharmacy Glycemic Short Note 2 - Date of Service January 09, 2024 - Glycemic Short BSG Results (Last 24 hours): 01/08/24 01/08/24 01/09/24 17:02 20:19 06:00 Glucose 143 H POC Glucose 167 H 177 H 01/09/24 01/09/24 07:57 11:26 Glucose POC Glucose 129 H 124 H OUTPATIENT ANTIDIABETIC REGIMEN: * Novolin R 15 units SQ daily, Novolin R SSI * A1c 8.1% 01/04 ASSESSMENT: 01/08: * BSGs have been stable for the past 48 hours. [phone] mg/dL yesterday. * SCr appears to have peaked and is now downtrending- 3.43 today * Fasting within goal range, trending down with 10 units of lantus qAM- continue * Continue current novolog parameters 01/06: * Scr remains elevated at 4.03. * Patient continues on a diet but carb consumption is on the lower side. * BSGs yesterday were [phone] 203 mg/dL and fasting this morning was 214 mg/dL. * Given elevation in fasting today, will order a conservative dose of lantus, keeping in mind the continued MARY and poor oral intake. Will also tighten CR in novolog scale. 01/05 * SCr 4.02 thia AM. T2DM diet now ordered. BSGs trended downward and patient has not received insulin since yesterday at lunch. * Will continue to hold basal at this time given increased SCR. * Novolog carb ratio loosened, continue with current correction factor. 01/04 * 63 year old admitted with hyperglycemia, poor oral intake, MARY, concerns for sepsis/dehydration, metabolic acidosis, afib. Concerns for pneumonia noted on CT. Scr up to 3.98 mg/dL - per notes, baseline Scr closer to 0.95 per records 2021. Elevated anion gap on admission, provider notes report likely related to acute renal failure. Provider repeating labs again this afternoon, still pending. * DM2 diabetic - pharmacy consulted for glycemic control. Patient NPO - reasonable to start novolog for now and see how BSGs trend. Unknown A1c - will order for tomorrow AM. Given 5 units SQ insulin at lunch time, will continue with novolog Q6 hour checks. PLAN FOR INPATIENT GLYCEMIC CONTROL: * Hold outpatient oral diabetes medications * Basal insulin * Lantus - 10 units SC qAM * Bolus insulin * NovoLog per scale ACHS or Q6hrs while NPO * Goal Range: Low 110 mg/dL - High 140 mg/dL * Correction Factor: 35 mg/dL/unit * Nutritional / Prandial insulin per carb ratio of 1 unit per 12 grams CHO consumed
--- NOTE | 2024-01-09 15:51 | Pulmonology Progress Note ---
Date of Service January 09, 2024 Assessment & Plan (1) Pleural effusion, right: (2) Empyema: (3) Acute pneumonia: (4) Sepsis: Sepsis acute organ dysfunction status: unspecified Sepsis type: sepsis due to unspecified organism Qualified Code(s): A41.9 - Sepsis, unspecified organism (5) Refusal of care by patient: Plan 63 y/o male with PMH of DM2 and adjustment disorder admitted due to severe sepsis, acute renal failure and pleural effusion found to be empyema Patient completed mist [address] chest obtained which reveals a posterior dependent multiloculated pleural effusion. The current pigtail catheter appears just lateral to the effusion. Patient adamantly refuses any further pleural interventions at this time or transfer to a tertiary center to get a VATS. Will continue current pigtail catheter to suction and follow-up chest x-ray tomorrow. Will consult ID for further antibiotic management. Will also consult psychiatry due to concerns of possible major depressive disorder impacting the patient's decision making. I did call the [facility]'s [facility] and discussed with patient's PA at the [facility] who does note the patient has a history of mood disorder. He also apparently has been refusing insulin on several occasions. He does have a history of diabetes mellitus type 2 with an A1c of 8.2. Thank you for the consult. Will continue to follow. Admission and Anticipated Discharge Date Admission Date: January 05, 2024 Subjective Patient seen and examined. He still refuses further pulmonary interventions at this time. He has been undergoing pleural irrigation with minimal output. Review of Systems Review of Systems: All systems reviewed & are unremarkable except as noted in HPI & below Physical Exam Constitutional: + thin, cooperative and comfortable; no acute distress Eyes: PERRL, conjunctivae normal, anicteric sclerae Respiratory: normal respiratory effort; no respiratory distress and no labored breathing Auscultation: + rhonchi; breath sounds present Cardiovascular: RRR, no murmur, no edema Gastrointestinal (Abdomen): normal bowel sounds, soft, nontender, no hepatosplenomegaly Musculoskeletal: no cyanosis or clubbing, extremities motor strength 5/5 Neurologic: moves all extremities and awake Results & Data Results & Data Vital Signs (Past 12 Hours) Vital Signs Temp Pulse Pulse Resp BP Pulse Ox O2 Del Method 01/09/24 15:12 36.7 C 68 18 119/64 95 Room Air 01/09/24 11:27 36.5 C 72 18 128/63 97 Room Air 01/09/24 08:10 Room Air 01/09/24 08:10 65 01/09/24 07:56 36.5 C 62 18 131/76 98 Room Air PG Care Time/CCT Total # of Minutes Spent Total Time Spent with Patient: Total time spent is greater than 50% in coordination of care (as documented) at patient's floor/unit and/or counseling patient: Coding Level of Care Code 46494 SUB INP/OBS CARE 3/50MIN Diagnoses Pleural effusion, right J90 Empyema J86.9 Acute pneumonia J18.9 Sepsis A41.9 Sepsis acute organ dysfunction status: unspecified Sepsis type: sepsis due to unspecified organism Refusal of care by patient Z53.29
--- NOTE | 2024-01-09 16:11 | Infectious Disease Consult ---
Date of Consultation January 09, 2024 Assessment & Plan (1) Empyema: (2) Acute pneumonia: (3) Acute renal failure: (4) DM II (diabetes mellitus, type II), controlled: Plan 63yo M inmate from [facility] detention with h/o T2DM, adjustment d/o who presented on 01/04 with weakness and shortness of breath. Here, he has been afebrile. Was hypotensive that improved with IVFs. Found with new onset afib. Initial WBC 20.11, Cr 3.53. Lactate 4.2, transaminitis. Elevated troponin. PCT 58.50. CRP 38.81. UA negative. CXR with moderate R pleural effusion, R airspace opacity. CTAP with moderate to large loculated right pleural effusion with RLL airspace opacity, favoring PNA or aspiration PNA with parapneumonic effusion, empyema not excluded; large amount of stool in rectum. TTE no significant valvular disease. S/p right chest tube placement on 01/04 (pH <7, exudative by protein). COVID flu negative. CT chest on 01/07 with right pleural fluid collection with a few foci of gas is moderate in size, somewhat decreased; RLL atelectasis w/ or w/o superimposed aspiration/PNA, tree-in-bud nodularity in LLL c/w PNA. Chest tube was adjusted and was taken down for a second chest tube, but patient refused further intervention. Patient was getting zosyn, which was changed to Unasyn. ID consulted 01/08. I did discuss with patient that if further drainage is required, it would be better to pursue it for better control of the infection, however he was still resistant to the idea. Will continue on Unasyn pending sensitivities. Plan will be for 4-6 weeks of abx. # PNA with right sided empyema s/p chest tube 01/04 # MARY # New onset afib # T2DM - f/u pleural fluid cx sensitivities - agree with Unasyn 3g IV q6h - plan for 4-6 weeks of antibiotics, final regimen pending sensitivities. If sensitive, dc option would include augemntin ID will continue to follow. If questions or concerns, contact Infectious Disease Call Center . Marcy Strickland MD [facility], Division of Infectious Diseases [facility]: [phone] Consultation Information Consultation was provided via telemedicine using two-way real-time interactive telecommunication between the patient and the telemedicine provider. For the duration of the visit, the provider was performing the assessment from a different facility than the patient. This includesuse of bluetooth stethoscope forauscultationperformed by the telepresenter that the telemedicine provider can hear if described in the physical exam. Parts Room Clerk contact information: Please call [facility] Call Center . (Phone Number For Physician Use Only) After establishing a telemedicine visit, patient was: Patient was verified with two unique identifiers, Patient/authorized rep acknowledged consent and understanding and Gave permission to continue telehealth session Time Spent with Patient: Initial => 75 min History of Present Illness Reason for Consultation: empyema Attending Physician: Melecio Trinidad History of Present Illness 63yo M inmate from [facility] with h/o T2DM, adjustment d/o who presented on 01/04 with weakness and shortness of breath. He reported poor PO intake x 3 days. Also noted right back/flank pain, which then resolved. He denied any fevers, cough, vomiting, abdominal pain, diarrhea. Here, he has been afebrile. Was hypotensive that improved with IVFs. Found with new onset afib. Initial WBC 20.11, Cr 3.53. Lactate 4.2, transaminitis. Elevated troponin. PCT 58.50. CRP 38.81. UA negative. CXR with moderate R pleural effusion, R airspace opacity. CTAP with moderate to large loculated right pleural effusion with RLL airspace opacity, favoring PNA or aspiration PNA with parapneumonic effusion, empyema not excluded; large amount of stool in rectum. TTE no significant valvular disease. S/p right chest tube placement on 01/04 (pH <7, exudative by protein). COVID flu negative. CT chest on 01/07 with right pleural fluid collection with a few foci of gas is moderate in size, somewhat decreased; RLL atelectasis w/ or w/o superimposed aspiration/PNA, tree-in-bud nodularity in LLL c/w PNA. Chest tube was adjusted and was taken down for a second chest tube, but patient refused further intervention. Patient was getting zosyn, which was changed to Unasyn. ID consulted 01/08. On evaluation, patient says he still feels a little short of breath. He does have pleuritic chest pain. He is very upset about the idea of getting another chest tube and doesnt want it due to the pain. He says he cant eat due to SOB. He does have a cough intermittently but says its improving. No abdominal pain, vomiting, diarrhea. Allergies Allergy/AdvReac Type Severity Reaction Status Date / Time Fish Containing Products Allergy Anaphylaxis Verified 01/05/24 12:50 metformin AdvReac Anaphylaxis Verified 01/05/24 12:48 Home Medications Medication Instructions Recorded Confirmed Type Novolin R 100u 15 unit subcut DAILY 01/05/24 01/05/24 History Novolin R Regular U100 Insulin 1 unit subcut .SLIDING SCALE PRN 01/05/24 01/05/24 History Other aspirin 81 mg tablet,delayed 81 mg PO DAILY 01/05/24 01/05/24 History release mirtazapine 30 mg tablet 30 mg PO HS 01/05/24 01/05/24 History rosuvastatin 20 mg tablet 20 mg PO DAILY 01/05/24 01/05/24 History Patient History Medical History Anxiety disorder Type 2 diabetes mellitus Social History Smoking Status: Former smoker Tobacco Type: Cigarettes Second Hand Exposure: Yes; Hx Alcohol Use: No Hx Substance Use: No Preferred Language: Divehi Communication Ability: Unable Current Living Situation: Other Current Living Situation Comment: detention Feels Safe at Home: Yes Review of System 10-point review of systems reviewed and are negative except for as above. Physical Exam Physical Exam: General: Awake, alert, no acute distress HEENT: NC/AT, EOMI, mmm Neck: supple Lungs: crackles Heart: nl S1/S2 Abdomen: soft, NT/ND Skin: no rash Neuro: moving all extremities Results & Data Vital Signs (Past 12 Hours) Vital Signs Temp Pulse Pulse Resp BP Pulse Ox O2 Del Method 01/09/24 15:12 36.7 C 68 18 119/64 95 Room Air 01/09/24 11:27 36.5 C 72 18 128/63 97 Room Air 01/09/24 08:10 Room Air 01/09/24 08:10 65 01/09/24 07:56 36.5 C 62 18 131/76 98 Room Air Laboratory Results Labs reviewed. Diagnostic Findings Imaging reviewed. (3) Acute renal failure Acute renal failure type: unspecified Qualified Code(s): N17.9 - Acute kidney failure, unspecified
--- NOTE | 2024-01-09 21:14 | Hospitalist Progress Note ---
Date of Service January 09, 2024 Assessment & Plan (1) Sepsis: Plan: -Admit to the PCU on tele and pulse oximetry -Currently hemodynamically stable, with HR in the low 100's, and otherwise stable at the time of the admission -Presented to the [facility] ED from [facility] due to multiple days of poor oral intake, hyperglycemia, and generalized weakness this am -Found to be in new onset atrial fibrillation with HR in the 120's, with WBC of 20, with possible right airspace opacity on CXR -Initial lactate of 10 -->4.2 after 3.5 L NSS given between EMS and the ED -Procal is elevated at 50. Appears to be empyema. Patient with chest tube placed. Currently draining. Pleural effusion is showing streptococcus, awaiting sensitivities. Patient with a second effusion, however patient is refusing a second chest tube. will continue to monitor. pigtail catheter irrigation. Patient again refusing second chest tube on 01/08 (2) High anion gap metabolic acidosis: Plan: -AG of 27, bicarb of 12 -Initial lactate of 10 -VBG in the ED with pH of 7.36, pCO2 of 25, and pO2 of 21 -Likely due to sepsis, dehydration, and acute renal failure -Will follow UA when obtained to monitor for signs of ketosis -Patient has received approximately 3.5L NSS between EMS transport and while in the ED -Repeat lactate improving to 4.2 -Will hold additional IV fluids until CT of the abd/pelvis is read as we do not want to volume overload him if he is in acute renal failure -Will continue to monitor lactate until he is stable (3) Acute renal failure: Plan: -Cr of 3.98 today, last base is 0.95 as of 2021 per [facility]'s labs -Patient had not been able to urinate since arrival, confirms this is not normal for him -Bladder scan at the time of admission was 200 cc -Electrolytes are currently stable, no indication for emergent/urgent dialysis at the time of admission -Patient did have some recent right flank pain with possible right CVA tenderne ss on exam -Will obtain stat CT of the abd/pelvis wo con at the time of admission to monitor for obstruction -Will monitor intake/output q6h -Will hold additional IV fluids until CT of the abd/pelvis is read in case he has an obstruction -If needed, will speak to the patient again regarding possible cali placement -Nephrology consult placed -Avoid nephrotoxic agents (4) Atrial fibrillation with rapid ventricular response: Plan: -Patient found to be in new-onset afib RVR with HR in the 120's on arrival -Potassium of 4.6, mag of 2.7 -Will add on TSH level -Likely due to his acute illness and renal failure -HR is currently stable in the low 100's at the time of exam, will not be overly aggressive with rate reduction on admission to avoid suppressing his reactive tacycardia with sepsis -Will start PRN 5 mg IV Lopressor q5m PRN sustained HR > 130 BPM for now, max 3 doses -Patient will be started on low dose, weight based heparin drip wo bolus for anticoagulation - Cardiology consult and TTE on admission (5) Pleural effusion, right: Plan: -Patient noted to have a moderate right pleural effusion on CXR today -Possible associated airspace opacity as well -Currently in no respiratory distress and stable on RA -empyema -Continue incentive spirometry,flutter therapy, prn O2 to keep SpO2 at or above 94% (6) Elevated troponin: Plan: -Initial high sen trop elevated at 57 -Patient is without chest pain or acute ST segment/T-wave changes on ECG -Likely due to demand with sepsis, acute renal failure, and afib RVR on arrival -2 hour repeat high sen trop is in process -Will continue to monitor on tele, continue to trend high sen trop q6h overnight -Will follow cardiology consult and TTE ordered on admission (7) DM II (diabetes mellitus, type II), controlled: Plan: -Normally takes 15 units SQ Novolin R in the am with SSI -Did have his am dose of basal insulin prior to arrival -Will start q6h BSG checks, goal is 110-160 for now -Start CF of 50 and CR 15 for now -Will hold basal insulin with acute renal failure -Keeping NPO until CT of abd/pelvis is read -Pharmacy glycemic consult has been place due to patient's multiple acute abnormalities on admission Admission and Anticipated Discharge Date Admission Date: January 05, 2024 Subjective {Patient reports he is still undecided on a second chest tube. He may consider it if he decompensates, but he does not want one now. Review of Systems Review of Systems: All systems reviewed & are unremarkable except as noted in HPI & below Physical Exam Physical Exam: General: In no acute distress HEENT: Normocephalic, atraumatic Chest/Pulm: CTA throughout/ chest tube placed. Cardiac: irregular rate and rhythm, no murmurs noted Abdomen: Negative for ascites and bruising, normoactive bowel sounds, soft, Musculoskeletal: Symmetrical and without signs of acute trauma, upper and lower extremities with full ROM, no atrophy, spasticity, or flaccidity Extremities: Radial, dorsalis pedis, and posterior tibial pulses are intact and symmetrical, no edema noted in the BL LE's Results & Data Results & Data Vital Signs (Past 12 Hours) Vital Signs Temp Pulse Pulse Resp BP Pulse Ox O2 Del Method 01/09/24 19:44 36.8 C 67 18 127/65 97 Room Air 01/09/24 15:12 36.7 C 68 18 119/64 95 Room Air 01/09/24 13:30 72 01/09/24 13:02 75 01/09/24 11:27 36.5 C 72 18 128/63 97 Room Air PG Care Time/CCT Total # of Minutes Spent Total Time Spent with Patient: Total time spent is greater than 50% in coordination of care (as documented) at patient's floor/unit and/or counseling patient: Coding Level of Care Code 30345 SUB INP/OBS CARE 2/35MIN Diagnoses Sepsis A41.9 Sepsis acute organ dysfunction status: unspecified Sepsis type: sepsis due to unspecified organism High anion gap metabolic acidosis E87.29 Acute renal failure N17.9 Atrial fibrillation with rapid ventricular response I48.91 Pleural effusion, right J90 Elevated troponin R79.89 DM II (diabetes mellitus, type II), controlled E11.9 (1) Sepsis Sepsis acute organ dysfunction status: unspecified Sepsis type: sepsis due to unspecified organism Qualified Code(s): A41.9 - Sepsis, unspecified organism
[2024-01-09] MEDS: METOPROLOL TARTRATE 25 MG TAB PO SCH (21:58)
[2024-01-10 08:10] LABS: Basophils # (auto) 0.02 K/uL (0.00-0.20); Basophils % (auto) 0.1 %; Eosinophils % (auto) 1.1 %; Hematocrit (blood only) 33.5 % (42.0-52.0); Hemoglobin 11.3 g/dl (14.0-18.0); Immature Granulocytes # (auto) 0.24 K/uL (0.01-0.20); Immature Granulocytes % (auto) 1.4 %; Lymphocytes # (auto) 2.76 K/uL (1.20-3.40); Lymphocytes % (auto) 15.7 %; Mean Corpuscular Hemoglobin 28.5 pg (25.0-34.0); Mean Corpuscular Hgb Conc 33.7 g/dL (32.0-36.0); Mean Corpuscular Volume 84.4 fL (80.0-100.0); Mean Platelet Volume 9.4 fL (9.4-12.4); Monocytes % (auto) 9.1 %; Neutrophils # (auto) 12.72 K/uL (1.40-6.50); Neutrophils % (auto) 72.6 %; Platelet Count 316 K/uL (130-400); RDW Coefficient of Variation 12.9 % (11.5-14.5); RDW Standard Deviation 39.7 fL (36.4-46.3); Red Blood Count 3.97 M/uL (4.70-6.10); White Blood Count 17.54 K/ul (4.8-10.8)
--- NOTE | 2024-01-10 09:31 | Nephrology Progress Note ---
Date of Service January 10, 2024 Assessment & Plan (1) Acute renal failure: Plan: * MARY likely ATN related to sepsis, pneumonia, new onset atrial fibrillation. No recent exposure to known nephrotoxic agents. * 01/[address] negative for obstruction * Garcia catheter in place draining clear yellow urine. UO 1267 cc last 24 hours * Urinalysis negative for ATN casts * Creatinine is now trending down (Cr 4.0-->3.8-->3.41-->2.97). Patient remains in the recovery phase of ATN. * Electrolyte balance is acceptable. No acute indication for HD today * Monitor PRP, UO (2) Sepsis: Plan: * Probable RLL pneumonia w/ parapneumonic effusion * 01/08/[address]: Right pleural fluid collection with a few foci of gas is moderate in size, somewhat decreased in size from prior exam. Right lower lung atelectasis with or without superimposed aspiration/pneumonia. Tree-in-bud nodularity in the left lower lobe is compatible with pneumonia. * Pleural fluid + for Streptococcus * Blood cultures are NGTD * On empiric IV Unasyn (3) Atrial fibrillation with rapid ventricular response: Plan: * Resolved * 01/04 Echocardiogram: LVEF 50-55%, normal LV wall motion, no significant valvular disease * Hemodynamically stable Admission and Anticipated Discharge Date Admission Date: January 05, 2024 Subjective Mr. Islas was evaluated in his hospital room this morning. He c/o discomfort from his pleural catheter but voiced no other concerns Review of Systems Constitutional: no fever Eyes: no problem reported Ear, Nose, Mouth, Throat: no problem reported Respiratory: no cough and no dyspnea Cardiovascular: no chest pain Gastrointestinal: no abdominal pain, no nausea, no vomiting and no diarrhea/loose stools Genitourinary: no dysuria or no hematuria Integumentary: no rash Physical Exam Constitutional: + thin; not in distress Eyes: PERRL, conjunctivae normal, anicteric sclerae ENMT: external ear and nose normal, oropharynx normal Neck: trachea midline, no thyromegaly Respiratory: Auscultation: + diminished lung sounds (R base. Pleural catheter in place) Cardiovascular: Rate/Rhythm: regular rate, regular rhythm and + irregularly irregular Gastrointestinal (Abdomen): normal bowel sounds, soft, nontender, no hepatosplenomegaly Skin: no rashes, warm and dry Neurologic: Speech / Cognition: normal speech and normal cognition Results & Data Vital Signs (Past 12 Hours) Vital Signs Temp Pulse Pulse Resp BP Pulse Ox O2 Del Method 01/10/24 08:01 36.4 C L 69 14 125/64 Room Air 01/10/24 02:55 36.6 C 65 23 129/62 97 Room Air 01/10/24 00:00 70 01/09/24 23:03 36.6 C 64 20 121/72 96 Room Air Laboratory Results Laboratory Results - last 24 hr 01/05/24 01/09/24 01/09/24 16:20 10:18 11:26 WBC RBC Hgb Hct MCV MCH MCHC RDW Std Deviation RDW Coeff of Aly Plt Count MPV Immature Gran % (Auto) Neut % (Auto) Lymph % (Auto) [place] % (Auto) Eos % (Auto) Baso % (Auto) Neut # (Auto) Lymph # (Auto) [place] # (Auto) Eos # (Auto) Baso # (Auto) Immature Gran # (Auto) Sodium Potassium Chloride Carbon Dioxide Anion Gap BUN Creatinine Est Cr Clr Drug Dosing Est GFR ( Amer) Est GFR (Non-Af Amer) BUN/Creatinine Ratio Glucose POC Glucose 124 H Calcium Procalcitonin 24.00 H Pleural Cholesterol 66 01/09/24 01/09/24 01/10/24 16:28 20:13 07:30 WBC RBC Hgb Hct MCV MCH MCHC RDW Std Deviation RDW Coeff of Aly Plt Count MPV Immature Gran % (Auto) Neut % (Auto) Lymph % (Auto) [place] % (Auto) Eos % (Auto) Baso % (Auto) Neut # (Auto) Lymph # (Auto) [place] # (Auto) Eos # (Auto) Baso # (Auto) Immature Gran # (Auto) Sodium Potassium Chloride Carbon Dioxide Anion Gap BUN Creatinine Est Cr Clr Drug Dosing Est GFR ( Amer) Est GFR (Non-Af Amer) BUN/Creatinine Ratio Glucose POC Glucose 205 H 178 H 124 H Calcium Procalcitonin Pleural Cholesterol 01/10/24 01/10/24 01/10/24 07:44 07:46 10:07 WBC 17.54 H RBC 3.97 L Hgb 11.3 L Hct 33.5 L MCV 84.4 MCH 28.5 MCHC 33.7 RDW Std Deviation 39.7 RDW Coeff of Aly 12.9 Plt Count 316 MPV 9.4 Immature Gran % (Auto) 1.4 Neut % (Auto) 72.6 Lymph % (Auto) 15.7 [place] % (Auto) 9.1 Eos % (Auto) 1.1 Baso % (Auto) 0.1 Neut # (Auto) 12.72 H Lymph # (Auto) 2.76 [place] # (Auto) 1.60 H Eos # (Auto) 0.20 Baso # (Auto) 0.02 Immature Gran # (Auto) 0.24 H Sodium 131 L Potassium 3.6 Chloride 98 Carbon Dioxide 22 Anion Gap 11 BUN 68 H Creatinine 2.97 H D Est Cr Clr Drug Dosing 22.3 Est GFR ( Amer) 24.4 Est GFR (Non-Af Amer) 21.1 BUN/Creatinine Ratio 22.9 H Glucose 127 H POC Glucose Calcium 7.6 L Procalcitonin Pending Pleural Cholesterol PG Care Time/CCT Total # of Minutes Spent Total Time Spent with Patient: Total time spent is greater than 50% in coordination of care (as documented) at patient's floor/unit and/or counseling patient: Coding Level of Care Code 30472 SUB INP/OBS CARE 3/50MIN Diagnoses Acute renal failure N17.9 Acute renal failure type: unspecified Sepsis A41.9 Sepsis acute organ dysfunction status: unspecified Sepsis type: sepsis due to unspecified organism Atrial fibrillation with rapid ventricular response I48.91 (1) Acute renal failure Acute renal failure type: unspecified Qualified Code(s): N17.9 - Acute kidney failure, unspecified (2) Sepsis Sepsis acute organ dysfunction status: unspecified Sepsis type: sepsis due to unspecified organism Qualified Code(s): A41.9 - Sepsis, unspecified organism
[2024-01-10 09:50] LABS: BUN Creatinine Ratio 22.9 (10-20); Calcium 7.6 mg/dl (8.6-10.3); Creatinine Clr Calc Pharmacy 22.3 ml/min; Est GFR (African American) 24.4 ml/min; Est GFR (Non-African American) 21.1 ml/min; Potassium 3.6 mmol/L (3.5-5.1)
--- NOTE | 2024-01-10 10:50 | XRay Report ---
XR chest 2V PA/lateral CLINICAL HISTORY: Empyema. COMPARISON STUDY: Chest CT January 08, 2024. Chest radiograph January 09, 2024. FINDINGS: A right pleural catheter remains in place. A moderate right pleural effusion persists, best shown on lateral projection. There is no pneumothorax. Hazy right lower lung opacity is noted. Left lung is clear. No evidence for pulmonary edema. Cardiomediastinal silhouette is stable. IMPRESSION: Right pleural catheter in place. Moderate right pleural effusion. No pneumothorax. ACT 112: Negative or not required by law. Electronically signed by: Paulo Tellez M.D. 01/10/2024 10:48 AM
--- NOTE | 2024-01-10 12:36 | Pulmonology Progress Note ---
Date of Service January 10, 2024 Assessment & Plan (1) Pleural effusion, right: (2) Empyema: (3) Acute pneumonia: (4) Sepsis: Sepsis acute organ dysfunction status: unspecified Sepsis type: sepsis due to unspecified organism Qualified Code(s): A41.9 - Sepsis, unspecified organism (5) Refusal of care by patient: Plan 63 y/o male with PMH of DM2 and adjustment disorder admitted due to severe sepsis, acute renal failure and pleural effusion found to be empyema Patient refusing additional chest tube insertion of VATS procedure to clear the pleural space of empyema. Currently 1 [address] tube is in place and continues to drain serosanguineous fluid. I am uncertain that the chest tube is capable of draining the remaining empyema. I did pull the catheter back approximately 5 cm with improvement of suction. Purulent material appears to be draining out. Will irrigate the catheter with 100 mL of saline every 6 hours. Procalcitonin appears to be trending down (12.3) but remains elevated. Chest tube dressing changed today. Continue daily chest x-ray. Continue Unasyn. Appreciate ID input. Psychiatry noted that the patient is capable of making his own decisions and recommending palliative care if he is refusing further care. Thank you for the consult. Will continue to follow. Admission and Anticipated Discharge Date Admission Date: January 05, 2024 Subjective Patient remains very reluctant to participate in his own care and pretty much lays supine in bed all day. He has not been laying on his right side as requested yesterday. Complains of back pain related to the chest tube insertion site. Chest tube continues to drain serosanguineous fluid. Review of Systems Review of Systems: All systems reviewed & are unremarkable except as noted in HPI & below Physical Exam Constitutional: + thin, cooperative and comfortable; no acute distress Eyes: PERRL, conjunctivae normal, anicteric sclerae Respiratory: normal respiratory effort; no respiratory distress and no labored breathing Auscultation: + rhonchi; breath sounds present Cardiovascular: RRR, no murmur, no edema Gastrointestinal (Abdomen): normal bowel sounds, soft, nontender, no hepatosplenomegaly Musculoskeletal: no cyanosis or clubbing, extremities motor strength 5/5 Neurologic: moves all extremities and awake Results & Data Results & Data Vital Signs (Past 12 Hours) Vital Signs Temp Pulse Pulse Resp BP Pulse Ox O2 Del Method 01/10/24 11:07 36.4 C L 62 22 125/64 93 Room Air 01/10/24 08:01 36.4 C L 69 14 125/64 Room Air 01/10/24 08:00 Room Air 01/10/24 07:00 61 01/10/24 02:55 36.6 C 65 23 129/62 97 Room Air PG Care Time/CCT Total # of Minutes Spent Total Time Spent with Patient: Total time spent is greater than 50% in coordination of care (as documented) at patient's floor/unit and/or counseling patient: Coding Level of Care Code 55326 SUB INP/OBS CARE 3/50MIN Diagnoses Pleural effusion, right J90 Empyema J86.9 Acute pneumonia J18.9 Sepsis A41.9 Sepsis acute organ dysfunction status: unspecified Sepsis type: sepsis due to unspecified organism Refusal of care by patient Z53.29
--- NOTE | 2024-01-10 22:18 | Hospitalist Progress Note ---
Date of Service January 10, 2024 Assessment & Plan (1) Sepsis: Plan: -Admit to the PCU on tele and pulse oximetry -Currently hemodynamically stable, with HR in the low 100's, and otherwise stable at the time of the admission -Presented to the [facility] ED from [facility] due to multiple days of poor oral intake, hyperglycemia, and generalized weakness this am -Found to be in new onset atrial fibrillation with HR in the 120's, with WBC of 20, with possible right airspace opacity on CXR -Initial lactate of 10 -->4.2 after 3.5 L NSS given between EMS and the ED -Procal is elevated at 50. Appears to be empyema. Patient with chest tube placed. Currently draining. Pleural effusion is showing streptococcus, awaiting sensitivities. Patient with a second effusion, however patient is refusing a second chest tube. will continue to monitor. pigtail catheter irrigation. repeat chest x ray continues to show medial pleural effusion. Patient again refusing second chest tube on 01/08 (2) High anion gap metabolic acidosis: Plan: -AG of 27, bicarb of 12 -Initial lactate of 10 -VBG in the ED with pH of 7.36, pCO2 of 25, and pO2 of 21 -Likely due to sepsis, dehydration, and acute renal failure -Will follow UA when obtained to monitor for signs of ketosis -Patient has received approximately 3.5L NSS between EMS transport and while in the ED -Repeat lactate improving to 4.2 -Will hold additional IV fluids until CT of the abd/pelvis is read as we do not want to volume overload him if he is in acute renal failure -Will continue to monitor lactate until he is stable (3) Acute renal failure: Plan: -Cr of 3.98 today, last base is 0.95 as of 2021 per [facility]'s labs -Patient had not been able to urinate since arrival, confirms this is not normal for him -Bladder scan at the time of admission was 200 cc -Electrolytes are currently stable, no indication for emergent/urgent dialysis at the time of admission -Patient did have some recent right flank pain with possible right CVA tenderness on exam -Will obtain stat CT of the abd/pelvis wo con at the time of admission to monitor for obstruction -Will monitor intake/output q6h -Will hold additional IV fluids until CT of the abd/pelvis is read in case he has an obstruction -If needed, will speak to the patient again regarding possible cali placement -Nephrology consult placed -Avoid nephrotoxic agents (4) Atrial fibrillation with rapid ventricular response: Plan: -Patient found to be in new-onset afib RVR with HR in the 120's on arrival -Potassium of 4.6, mag of 2.7 -Will add on TSH level -Likely due to his acute illness and renal failure -HR is currently stable in the low 100's at the time of exam, will not be overly aggressive with rate reduction on admission to avoid suppressing his reactive tacycardia with sepsis -Will start PRN 5 mg IV Lopressor q5m PRN sustained HR > 130 BPM for now, max 3 doses -Patient will be started on low dose, weight based heparin drip wo bolus for anticoagulation - Cardiology consult and TTE on admission (5) Pleural effusion, right: Plan: -Patient noted to have a moderate right pleural effusion on CXR today -Possible associated airspace opacity as well -Currently in no respiratory distress and stable on RA -empyema -Continue incentive spirometry,flutter therapy, prn O2 to keep SpO2 at or above 94% (6) Elevated troponin: Plan: -Initial high sen trop elevated at 57 -Patient is without chest pain or acute ST segment/T-wave changes on ECG -Likely due to demand with sepsis, acute renal failure, and afib RVR on arrival -2 hour repeat high sen trop is in process -Will continue to monitor on tele, continue to trend high sen trop q6h overnight -Will follow cardiology consult and TTE ordered on admission (7) DM II (diabetes mellitus, type II), controlled: Plan: -Normally takes 15 units SQ Novolin R in the am with SSI -Did have his am dose of basal insulin prior to arrival -Will start q6h BSG checks, goal is 110-160 for now -Start CF of 50 and CR 15 for now -Will hold basal insulin with acute renal failure -Keeping NPO until CT of abd/pelvis is read -Pharmacy glycemic consult has been place due to patient's multiple acute abnormalities on admission Admission and Anticipated Discharge Date Admission Date: January 05, 2024 Subjective patient continues to refuse second chest tube. Review of Systems Review of Systems: All systems reviewed & are unremarkable except as noted in HPI & below Physical Exam Physical Exam: General: In no acute distress HEENT: Normocephalic, atraumatic Chest/Pulm: CTA throughout/ chest tube placed. Cardiac: irregular rate and rhythm, no murmurs noted Abdomen: Negative for ascites and bruising, normoactive bowel sounds, soft, Musculoskeletal: Symmetrical and without signs of acute trauma, upper and lower extremities with full ROM, no atrophy, spasticity, or flaccidity Extremities: Radial, dorsalis pedis, and posterior tibial pulses are intact and symmetrical, no edema noted in the BL LE's Results & Data Results & Data Vital Signs (Past 12 Hours) Vital Signs Temp Pulse Pulse Resp BP Pulse Ox O2 Del Method 01/10/24 19:30 36.8 C 65 16 126/66 97 Room Air 01/10/24 15:13 36.6 C 64 16 121/62 94 Room Air 01/10/24 14:00 67 01/10/24 11:07 36.4 C L 62 22 125/64 93 Room Air PG Care Time/CCT Total # of Minutes Spent Total Time Spent with Patient: Total time spent is greater than 50% in coordination of care (as documented) at patient's floor/unit and/or counseling patient: Coding Level of Care Code 82551 SUB INP/OBS CARE 2/35MIN Diagnoses Sepsis A41.9 Sepsis acute organ dysfunction status: unspecified Sepsis type: sepsis due to unspecified organism High anion gap metabolic acidosis E87.29 Acute renal failure N17.9 Atrial fibrillation with rapid ventricular response I48.91 Pleural effusion, right J90 Elevated troponin R79.89 DM II (diabetes mellitus, type II), controlled E11.9 (1) Sepsis Sepsis acute organ dysfunction status: unspecified Sepsis type: sepsis due to unspecified organism Qualified Code(s): A41.9 - Sepsis, unspecified organism
[2024-01-11 06:12] LABS: Basophils # (auto) 0.03 K/uL (0.00-0.20); Basophils % (auto) 0.2 %; Eosinophils % (auto) 1.7 %; Hematocrit (blood only) 31.2 % (42.0-52.0); Hemoglobin 10.7 g/dl (14.0-18.0); Immature Granulocytes # (auto) 0.29 K/uL (0.01-0.20); Immature Granulocytes % (auto) 1.6 %; Lymphocytes # (auto) 2.42 K/uL (1.20-3.40); Lymphocytes % (auto) 13.4 %; Mean Corpuscular Hgb Conc 34.3 g/dL (32.0-36.0); Mean Corpuscular Volume 84.6 fL (80.0-100.0); Mean Platelet Volume 9.4 fL (9.4-12.4); Monocytes # (auto) 1.38 K/uL (0.11-0.59); Monocytes % (auto) 7.6 %; Neutrophils # (auto) 13.67 K/uL (1.40-6.50); Neutrophils % (auto) 75.5 %; Platelet Count 317 K/uL (130-400); RDW Coefficient of Variation 13.8 % (11.5-14.5); RDW Standard Deviation 42.5 fL (36.4-46.3); Red Blood Count 3.69 M/uL (4.70-6.10); White Blood Count 18.09 K/ul (4.8-10.8)
[2024-01-11 06:37] LABS: BUN Creatinine Ratio 25.1 (10-20); Calcium 7.6 mg/dl (8.6-10.3); Creatinine Clr Calc Pharmacy 25.6 ml/min; Est GFR (African American) 28.8 ml/min; Est GFR (Non-African American) 24.9 ml/min; Potassium 3.7 mmol/L (3.5-5.1)
--- NOTE | 2024-01-11 09:10 | Nephrology Progress Note ---
Date of Service January 11, 2024 Assessment & Plan (1) Acute renal failure: Plan: * MARY likely ATN related to sepsis, pneumonia, new onset atrial fibrillation. No recent exposure to known nephrotoxic agents. * 01/[address] negative for obstruction * Garcia catheter in place draining clear yellow urine. UO 1600 cc last 24 hours * Urinalysis negative for ATN casts * Creatinine is trending down (Cr 4.0-->2.59, baseline 0.9) * Volume status and electrolyte balance are acceptable * Monitor PRP, UO * No further recommendations from Nephrology perspective. Patient remains in recovery phase of ATN. Will sign off. Please call if further assistance is needed (2) Sepsis: Plan: * Probable RLL pneumonia w/ parapneumonic effusion * 01/08/[address]: Right pleural fluid collection with a few foci of gas is moderate in size, somewhat decreased in size from prior exam. Right lower lung atelectasis with or without superimposed aspiration/pneumonia. Tree-in-bud nodularity in the left lower lobe is compatible with pneumonia. * Pleural fluid + for Streptococcus * Blood cultures are NGTD * On empiric IV Unasyn (3) Atrial fibrillation with rapid ventricular response: Plan: * Resolved * 01/04 Echocardiogram: LVEF 50-55%, normal LV wall motion, no significant valvular disease * Hemodynamically stable Admission and Anticipated Discharge Date Admission Date: January 05, 2024 Subjective Mr. Islas was evaluated in his hospital room this morning. He voiced no new medical concerns Review of Systems Constitutional: no fever Eyes: no problem reported Ear, Nose, Mouth, Throat: no problem reported Respiratory: no cough and no dyspnea Cardiovascular: no chest pain Gastrointestinal: no abdominal pain, no nausea, no vomiting and no diarrhea/ loose stools Genitourinary: no dysuria or no hematuria Integumentary: no rash Physical Exam Constitutional: + thin; not in distress Eyes: PERRL, conjunctivae normal, anicteric sclerae ENMT: external ear and nose normal, oropharynx normal Neck: trachea midline, no thyromegaly Respiratory: Auscultation: + diminished lung sounds (R base. Pleural catheter in place) Cardiovascular: Rate/Rhythm: regular rate, regular rhythm and + irregularly irregular Gastrointestinal (Abdomen): normal bowel sounds, soft, nontender, no hepatosplenomegaly Skin: no rashes, warm and dry Neurologic: Speech / Cognition: normal speech and normal cognition Results & Data Vital Signs (Past 12 Hours) Vital Signs Temp Pulse Pulse Resp BP Pulse Ox O2 Del Method 01/11/24 07:45 36.7 C 64 17 135/68 97 Room Air 01/11/24 03:00 36.5 C 58 L 16 131/69 96 Room Air 01/11/24 00:00 64 01/10/24 22:55 36.5 C 66 18 124/68 95 Room Air Laboratory Results Laboratory Results - last 24 hr 01/10/24 01/10/24 01/10/24 07:46 10:07 11:31 WBC RBC Hgb Hct MCV MCH MCHC RDW Std Deviation RDW Coeff of Aly Plt Count MPV Immature Gran % (Auto) Neut % (Auto) Lymph % (Auto) [place] % (Auto) Eos % (Auto) Baso % (Auto) Neut # (Auto) Lymph # (Auto) [place] # (Auto) Eos # (Auto) Baso # (Auto) Immature Gran # (Auto) Sodium 131 L Potassium 3.6 Chloride 98 Carbon Dioxide 22 Anion Gap 11 BUN 68 H Creatinine 2.97 H D Est Cr Clr Drug Dosing 22.3 Est GFR ( Amer) 24.4 Est GFR (Non-Af Amer) 21.1 BUN/Creatinine Ratio 22.9 H Glucose 127 H POC Glucose 136 H Calcium 7.6 L Procalcitonin 12.30 H 01/10/24 01/10/24 01/11/24 16:05 20:19 05:44 WBC 18.09 H RBC 3.69 L Hgb 10.7 L Hct 31.2 L MCV 84.6 MCH 29.0 MCHC 34.3 RDW Std Deviation 42.5 RDW Coeff of Aly 13.8 Plt Count 317 MPV 9.4 Immature Gran % (Auto) 1.6 Neut % (Auto) 75.5 Lymph % (Auto) 13.4 [place] % (Auto) 7.6 Eos % (Auto) 1.7 Baso % (Auto) 0.2 Neut # (Auto) 13.67 H Lymph # (Auto) 2.42 [place] # (Auto) 1.38 H Eos # (Auto) 0.30 Baso # (Auto) 0.03 Immature Gran # (Auto) 0.29 H Sodium 132 L Potassium 3.7 Chloride 99 Carbon Dioxide 22 Anion Gap 11 BUN 65 H Creatinine 2.59 H D Est Cr Clr Drug Dosing 25.6 Est GFR ( Amer) 28.8 Est GFR (Non-Af Amer) 24.9 BUN/Creatinine Ratio 25.1 H Glucose 170 H POC Glucose 234 H 189 H Calcium 7.6 L Procalcitonin Pending 01/11/24 07:48 WBC RBC Hgb Hct MCV MCH MCHC RDW Std Deviation RDW Coeff of Aly Plt Count MPV Immature Gran % (Auto) Neut % (Auto) Lymph % (Auto) [place] % (Auto) Eos % (Auto) Baso % (Auto) Neut # (Auto) Lymph # (Auto) [place] # (Auto) Eos # (Auto) Baso # (Auto) Immature Gran # (Auto) Sodium Potassium Chloride Carbon Dioxide Anion Gap BUN Creatinine Est Cr Clr Drug Dosing Est GFR ( Amer) Est GFR (Non-Af Amer) BUN/Creatinine Ratio Glucose POC Glucose 192 H Calcium Procalcitonin PG Care Time/CCT Total # of Minutes Spent Total Time Spent with Patient: Total time spent is greater than 50% in coordination of care (as documented) at patient's floor/unit and/or counseling patient: Coding Level of Care Code 55620 SUB INP/OBS CARE 3/50MIN Diagnoses Acute renal failure N17.9 Acute renal failure type: unspecified Sepsis A41.9 Sepsis acute organ dysfunction status: unspecified Sepsis type: sepsis due to unspecified organism Atrial fibrillation with rapid ventricular response I48.91 (1) Acute renal failure Acute renal failure type: unspecified Qualified Code(s): N17.9 - Acute kidney failure, unspecified (2) Sepsis Sepsis acute organ dysfunction status: unspecified Sepsis type: sepsis due to unspecified organism Qualified Code(s): A41.9 - Sepsis, unspecified organism
--- NOTE | 2024-01-11 09:27 | Pharmacy Report ---
Pharmacy Glycemic Short Note 2 - Date of Service January 11, 2024 - Glycemic Short BSG Results (Last 24 hours): 01/10/24 01/10/24 01/10/24 07:46 11:31 16:05 Glucose 127 H POC Glucose 136 H 234 H 01/10/24 01/11/24 01/11/24 20:19 05:44 07:48 Glucose 170 H POC Glucose 189 H 192 H OUTPATIENT ANTIDIABETIC REGIMEN: * Novolin R 15 units SQ daily, Novolin R SSI * A1c 8.1% 01/04 ASSESSMENT: 01/10: * Blood sugar above goal yesterday evening and this morning, but patient refused AM Lantus - therefore no change in orders at this time. * CR tightened yesterday but unable to evaluate effects, as basal was refused, so no changes in NovoLog either at this time. 01/08: * BSGs have been stable for the past 48 hours. [phone] mg/dL yesterday. * SCr appears to have peaked and is now downtrending- 3.43 today * Fasting within goal range, trending down with 10 units of lantus qAM- continue * Continue current novolog parameters 01/06: * Scr remains elevated at 4.03. * Patient continues on a diet but carb consumption is on the lower side. * BSGs yesterday were 20-276-286-and 203 mg/dL and fasting this morning was 214 mg/dL. * Given elevation in fasting today, will order a conservative dose of lantus, keeping in mind the continued MARY and poor oral intake. Will also tighten CR in novolog scale. 01/05 * SCr 4.02 thia AM. T2DM diet now ordered. BSGs trended downward and patient has not received insulin since yesterday at lunch. * Will continue to hold basal at this time given increased SCR. * Novolog carb ratio loosened, continue with current correction factor. 01/04 * 63 year old admitted with hyperglycemia, poor oral intake, MARY, concerns for sepsis/dehydration, metabolic acidosis, afib. Concerns for pneumonia noted on CT. Scr up to 3.98 mg/dL - per notes, baseline Scr closer to 0.95 per records 2021. Elevated anion gap on admission, provider notes report likely related to acute renal failure. Provider repeating labs again this afternoon, still pending. * DM2 diabetic - pharmacy consulted for glycemic control. Patient NPO - reasonable to start novolog for now and see how BSGs trend. Unknown A1c - will order for tomorrow AM. Given 5 units SQ insulin at lunch time, will continue with novolog Q6 hour checks. PLAN FOR INPATIENT GLYCEMIC CONTROL: * Hold outpatient insulin * Basal insulin * Lantus - 10 units SC qAM * Bolus insulin * NovoLog per scale ACHS or Q6hrs while NPO * Goal Range: Low 110 mg/dL - High 140 mg/dL * Correction Factor: 35 mg/dL/unit * Nutritional / Prandial insulin per carb ratio of 1 unit per 10 grams CHO consumed
--- NOTE | 2024-01-11 09:45 | XRay Report ---
XR chest 2V PA/lateral CLINICAL HISTORY: Empyema COMPARISON STUDY: Chest CT January 08, 2024. Chest radiograph January 10, 2024. FINDINGS: Right pleural catheter remains in place. No pneumothorax is identified. A small to moderate right pleural effusion has mildly decreased in size since prior exam. Persistent right mid and lower lung airspace opacity is noted. Cardiomediastinal silhouette is stable. No evidence for pulmonary ed radha. IMPRESSION: Right pleural catheter in place. Decrease in size of a small to moderate right pleural ef fusion. No pneumothorax. ACT 112: Negative or not required by law. Electronically signed by: Paulo Tellez M.D. 01/11/2024 9:44 AM
--- NOTE | 2024-01-11 12:18 | Pulmonology Progress Note ---
Date of Service January 11, 2024 Assessment & Plan (1) Pleural effusion, right: (2) Empyema: (3) Acute pneumonia: (4) Sepsis: Sepsis acute organ dysfunction status: unspecified Sepsis type: sepsis due to unspecified organism Qualified Code(s): A41.9 - Sepsis, unspecified organism (5) Refusal of care by patient: Plan 63 y/o male with PMH of DM2 and adjustment disorder admitted due to severe sepsis, acute renal failure and pleural effusion found to be empyema Patient refusing additional chest tube insertion of VATS procedure to clear the pleural space of empyema. Currently 1 [address] is in place and continues to drain serosanguineous fluid. I am uncertain that the chest tube is capable of draining the remaining empyema. I did pull the catheter back approximately 5 cm with improvement of suction. Purulent material appears to be draining out. Will give a one time dose of intrapleural 5 mg tpa and let dwell for 5 hours. Procalcitonin continues to trend down. Continue daily chest x-ray. Continue Unasyn. Appreciate ID input. Psychiatry noted that the patient is capable of making his own decisions and recommending palliative care if he is refusing further care. Thank you for the consult. Will continue to follow. Admission and Anticipated Discharge Date Admission Date: January 05, 2024 Subjective Still complaining of pleuritic pain. No major hemodynamic issues. Review of Systems Review of Systems: All systems reviewed & are unremarkable except as noted in HPI & below Physical Exam Constitutional: + thin, cooperative and comfortable; no acute distress Eyes: PERRL, conjunctivae normal, anicteric sclerae Respiratory: normal respiratory effort; no respiratory distress and no labored breathing Auscultation: + rhonchi; breath sounds present Cardiovascular: RRR, no murmur, no edema Gastrointestinal (Abdomen): normal bowel sounds, soft, nontender, no hepatosplenomegaly Musculoskeletal: no cyanosis or clubbing, extremities motor strength 5/5 Neurologic: moves all extremities and awake Results & Data Results & Data Vital Signs (Past 12 Hours) Vital Signs Temp Pulse Resp BP Pulse Ox O2 Del Method 01/11/24 12:10 36.7 C 69 20 118/63 96 Room Air 01/11/24 07:45 36.7 C 64 17 135/68 97 Room Air 01/11/24 03:00 36.5 C 58 L 16 131/69 96 Room Air PG Care Time/CCT Total # of Minutes Spent Total Time Spent with Patient: Total time spent is greater than 50% in coordination of care (as documented) at patient's floor/unit and/or counseling patient: Coding Level of Care Code 92252 SUB INP/OBS CARE 2/35MIN Diagnoses Pleural effusion, right J90 Empyema J86.9 Acute pneumonia J18.9 Sepsis A41.9 Sepsis acute organ dysfunction status: unspecified Sepsis type: sepsis due to unspecified organism Refusal of care by patient Z53.29
[2024-01-11] MEDS: RECOMBINANT IPL ONE (12:42)
[2024-01-11] MEDS: ALTEPLASE IPL ONE (12:42)
--- NOTE | 2024-01-11 16:08 | Hospitalist Progress Note ---
Date of Service January 11, 2024 Assessment & Plan (1) Sepsis: Plan: -Admit to the PCU on tele and pulse oximetry -Currently hemodynamically stable, with HR in the low 100's, and otherwise stable at the time of the admission -Presented to the [facility] ED from [facility] due to multiple days of poor oral intake, hyperglycemia, and generalized weakness this am -Found to be in new onset atrial fibrillation with HR in the 120's, with WBC of 20, with possible right airspace opacity on CXR -Initial lactate of 10 -->4.2 after 3.5 L NSS given between EMS and the ED -Procal is elevated at 50. Pleural effusion was empyema Patient with chest tube placed, Currently draining. Pleural effusion is showing Streptococcus intermedius. Sensitivities Patient with a second effusion, however patient is refusing a second chest tube. will continue to monitor. pigtail catheter irrigation. repeat chest x ray continues to show medial pleural effusion. Patient again refusing second chest tube on 01/10 (2) High anion gap metabolic acidosis: Plan: -AG of 27, bicarb of 12 -Initial lactate of 10 -VBG in the ED with pH of 7.36, pCO2 of 25, and pO2 of 21 -Likely due to sepsis, dehydration, and acute renal failure -anion gap now closed. -Repeat lactate improving to 4.2 (3) Acute renal failure: Plan: -Cr of 3.98 today, last base is 0.95 as of 2021 per [facility]'s labs -Patient had not been able to urinate since arrival, confirms this is not normal for him -Nephrology consult placed -Avoid nephrotoxic agents -Now resolving (4) Atrial fibrillation with rapid ventricular response: Plan: -Patient found to be in new-onset afib RVR with HR in the 120's on arrival -Potassium of 4.6, mag of 2.7 Now back to sinus -due to bloody pleural serosanguineous effusion will continue to hold anticoagulation. can reach out to cardio on 01/10 Chadsvasc score is 2 (5) Pleural effusion, right: Plan: Empyema -Patient noted to have a moderate right pleural effusion on CXR intially After chest tube placed, they appears to be a medial pleural effusion. will likely need second chest tube but patient refusion -Currently in no respiratory distress and stable on RA (6) Elevated troponin: Plan: -Initial high sen trop elevated at 57 -Patient is without chest pain or acute ST segment/T-wave changes on ECG -Likely due to demand with sepsis, acute renal failure, and afib RVR on arrival -Will continue to monitor on tele, continue to trend high sen trop q6h overnight \ (7) DM II (diabetes mellitus, type II), controlled: Plan: -Normally takes 15 units SQ Novolin R in the am with SSI -Did have his am dose of basal insulin prior to arrival -Will start q6h BSG checks, goal is 110-160 for now -Start CF of 50 and CR 15 for now -Will hold basal insulin with acute renal failure -Keeping NPO until CT of abd/pelvis is read -Pharmacy glycemic consult has been place due to patient's multiple acute abnormalities on admission Admission and Anticipated Discharge Date Admission Date: January 05, 2024 Subjective Patient reports no new symptoms. Review of Systems Review of Systems: All systems reviewed & are unremarkable except as noted in HPI & below Physical Exam Physical Exam: General: In no acute distress HEENT: Normocephalic, atraumatic Chest/Pulm: CTA throughout/ chest tube placed. Cardiac: irregular rate and rhythm, no murmurs noted Abdomen: Negative for ascites and bruising, normoactive bowel sounds, soft, Extremities: Radial, dorsalis pedis, and posterior tibial pulses are intact and symmetrical, no edema noted in the BL LE's Results & Data Results & Data Vital Signs (Past 12 Hours) Vital Signs Temp Pulse Resp BP Pulse Ox O2 Del Method 01/11/24 15:24 36.7 C 70 18 140/60 97 Room Air 01/11/24 12:10 36.7 C 69 20 118/63 96 Room Air 01/11/24 07:45 36.7 C 64 17 135/68 97 Room Air PG Care Time/CCT Total # of Minutes Spent Total Time Spent with Patient: Total time spent is greater than 50% in coordination of care (as documented) at patient's floor/unit and/or counseling patient: Coding Level of Care Code 50706 SUB INP/OBS CARE 2/35MIN Diagnoses Sepsis A41.9 Sepsis acute organ dysfunction status: unspecified Sepsis type: sepsis due to unspecified organism High anion gap metabolic acidosis E87.29 Acute renal failure N17.9 Atrial fibrillation with rapid ventricular response I48.91 Pleural effusion, right J90 Elevated troponin R79.89 DM II (diabetes mellitus, type II), controlled E11.9 (1) Sepsis Sepsis acute organ dysfunction status: unspecified Sepsis type: sepsis due to unspecified organism Qualified Code(s): A41.9 - Sepsis, unspecified organism
[2024-01-12 06:38] LABS: Basophils # (auto) 0.02 K/uL (0.00-0.20); Basophils % (auto) 0.2 %; Eosinophils # (auto) 0.36 K/uL (0.00-0.50); Eosinophils % (auto) 2.7 %; Hematocrit (blood only) 33.3 % (42.0-52.0); Hemoglobin 11.1 g/dl (14.0-18.0); Immature Granulocytes # (auto) 0.21 K/uL (0.01-0.20); Immature Granulocytes % (auto) 1.6 %; Lymphocytes # (auto) 2.69 K/uL (1.20-3.40); Lymphocytes % (auto) 20.5 %; Mean Corpuscular Hemoglobin 28.1 pg (25.0-34.0); Mean Corpuscular Hgb Conc 33.3 g/dL (32.0-36.0); Mean Corpuscular Volume 84.3 fL (80.0-100.0); Mean Platelet Volume 9.1 fL (9.4-12.4); Monocytes # (auto) 1.14 K/uL (0.11-0.59); Monocytes % (auto) 8.7 %; Neutrophils % (auto) 66.3 %; Platelet Count 381 K/uL (130-400); RDW Coefficient of Variation 13.5 % (11.5-14.5); RDW Standard Deviation 41.6 fL (36.4-46.3); Red Blood Count 3.95 M/uL (4.70-6.10); White Blood Count 13.12 K/ul (4.8-10.8)
--- NOTE | 2024-01-12 07:43 | Pulmonology Progress Note ---
Date of Service January 12, 2024 Assessment & Plan (1) Empyema: (2) Acute pneumonia: Plan Impression: 63 y/o male with PMH of DM2 and adjustment disorder with empyema and pneumonia Recommendations: 1. Empyema: Chest x-ray appears improved today. Would continue chest tube until drainage is less than 200 cc per 24 hours. Will reinstitute additional doses of intrapleural fibrinolytics to see if we can hasten recovery given the patient's reluctance to consider additional procedures. Continue daily chest x- ray. Pain control per primary service. 2. Pneumonia: No indication for trending procalcitonin at this point in time. Currently day #7 antibiotics (4 days Zosyn, 4 days Unasyn). Can likely transition to oral Augmentin. Sensitivities not performed on strep intermedius isolate. Will continue to follow. Please contact us with questions or concerns Admission and Anticipated Discharge Date Admission Date: January 05, 2024 Subjective Patient seen and examined. EMR reviewed. Discussed with off going relationship mgr. The patient states that his chest pain is about the same. His breathing is okay. He is experiencing some dysphagia and nausea. He denies fevers chills night sweats or other constitutional symptoms. His chest tube put out over 280 cc after being remanipulated yesterday chest x-ray this morning demonstrates chest tube in good position with minimal residual fluid Review of Systems 2 Review of Systems: All systems reviewed & are unremarkable except as noted in Subjective Physical Exam 2 Constitutional: + thin and + disheveled; no acute distre ss Neck: trachea midline, no thyromegaly Respiratory: no respiratory distress, no labored breathing, no cough and not tachypneic Auscultation: + diminished lung sounds Cardiovascular: RRR, no murmur, no edema Gastrointestinal (Abdomen): normal bowel sounds, soft, nontender, no hepatosplenomegaly Musculoskeletal: Extremities: extremities normal to inspection Skin: no rashes, warm and dry Neurologic: Nonfocal exam Lymphatic: no cervical lymphadenopathy Results & Data Results & Data Vital Signs (Past 12 Hours) Vital Signs Temp Pulse Pulse Resp BP BP Pulse Ox 01/12/24 07:36 63 01/12/24 03:40 36.6 C 60 18 135/65 96 01/12/24 02:13 01/12/24 00:00 61 01/11/24 22:39 36.7 C 64 18 124/66 96 01/11/24 19:44 36.9 C 69 18 122/63 97 O2 Del Method 01/12/24 07:36 01/12/24 03:40 Room Air 01/12/24 02:13 Room Air 01/12/24 00:00 01/11/24 22:39 Room Air 01/11/24 19:44 Room Air Laboratory Results 01/12/24 05:53 Diagnostic Findings Chest x-ray today was independently reviewed. The tube appears to be in good position. Unclear if there is a subpulmonic fluid collection. Minimal fluid tracking into the fissure. Appears to be improved aeration compared to yesterday PG Care Time/CCT Total # of Minutes Spent Total Time Spent with Patient: Total time spent is greater than 50% in coordination of care (as documented) at patient's floor/unit and/or counseling patient: Coding Level of Care Code 34001 SUB INP/OBS CARE 2/35MIN Diagnoses Empyema J86.9 Acute pneumonia J18.9
--- NOTE | 2024-01-12 07:56 | XRay Report ---
XR chest 1V portable CLINICAL HISTORY: Chest tube ? MIST 2 protocol COMPARISON STUDY: Chest radiograph January 11, 2024. FINDINGS: Right basilar pleural catheter remains in place. A small right pleural effusion persists. T here is no pneumothorax. Right mid and lower lung airspace opacity is slightly improved. There is fis sural fluid. No evidence for pulmonary edema. IMPRESSION: Right basilar pleural catheter in place. No pneumothorax. No significant change in a sma ll right pleural effusion with right basilar opacity. ACT 112: Negative or not required by law. Electronically signed by: Paulo Tellez M.D. 01/12/2024 7:55 AM
[2024-01-12] MEDS: ALTEPLASE, RECOMBINANT 10 MG in SYRINGE 50 ML IPL SCH (09:17)
[2024-01-12 10:20] LABS: Calcium 7.6 mg/dl (8.6-10.3)
[2024-01-12 10:25] LABS: BUN Creatinine Ratio 22.4 (10-20); C Reactive Protein 9.95 mg/dl (0-0.5); Creatinine Clr Calc Pharmacy 26.1 ml/min; Est GFR (African American) 29.4 ml/min; Est GFR (Non-African American) 25.4 ml/min
[2024-01-12] MEDS: DORNASE ALFA 5 ML in SYRINGE 25 ML IPL SCH (10:43)
--- NOTE | 2024-01-12 14:54 | Infectious Disease Progress Nt ---
Date of Service January 12, 2024 Assessment & Plan (1) Empyema: (2) Acute pneumonia: (3) Acute renal failure: (4) DM II (diabetes mellitus, type II), controlled: Plan 63yo M inmate from [facility] residential with h/o T2DM, adjustment d/o who presented on 01/04 with weakness and shortness of breath. Here, he has been afebrile. Was hypotensive that improved with IVFs. Found with new onset afib. Initial WBC 20.11, Cr 3.53. Lactate 4.2, transaminitis. Elevated troponin. PCT 58.50. CRP 38.81. UA negative. CXR with moderate R pleural effusion, R airspace opacity. CTAP with moderate to large loculated right pleural effusion with RLL airspace opacity, favoring PNA or aspiration PNA with parapneumonic effusion, empyema not excluded; large amount of stool in rectum. TTE no significant valvular disease. S/p right chest tube placement on 01/04 (pH <7, exudative by protein). COVID flu negative. CT chest on 01/07 with right pleural fluid collection with a few foci of gas is moderate in size, somewhat decreased; RLL atelectasis w/ or w/o superimposed aspiration/PNA, tree-in-bud nodularity in LLL c/w PNA. Chest tube was adjusted and was taken down for a second chest tube, but patient refused further intervention. Patient was getting zosyn, which was changed to Unasyn. ID consulted 01/08. Id discussed with patient that if further drainage was required, it would be better to pursue it for better control of the infection, however he wasresistant to the idea. He is on Unasyn. Pleural fluid grew strep intermediusm. Plan will be for 4-6 weeks of abx. # PNA with right sided empyema s/p chest tube 01/04, cx + strep intermedius # MARY # New onset afib # T2DM WBC down to 13.12, cr 2.55 - Can transition from Unasyn 3g IV q12 ( cr cl 26) to Augmentin 500/125 mg PO q12 h ( cr cl 26)for 4-6 weeks based on clinical response and repeat imaging. Tentative EOT at 4 weeks ( 02/02/24), may need extension to 6 weeks and possibly further intervention if no resolution loculation/empyema on repeat imaging at 4 weeks . Augmentin will need to be adjusted if renal function continues to improve , if crcl> 30 , then can increase augmentin to 875/125 mg po bid. ID will sign off. Please call w/ questions. Javy Valente MD, MPH Infectious Disease [facility], [facility] Call [phone] with questions. Admission and Anticipated Discharge Date Admission Date: January 05, 2024 Subjective This patient recommendation is based on a telemedicine consult request which was completed asynchronously through chart review and information provided by the primary physician. The patient was not seen or examined today. The evaluation is consultative in nature and all patient care and treatment decisions can either be accepted or rejected by the patient's primary hospital-based treating physician using their own independent medical judgment for their patient. Time Spent Reviewing Chart: 21 - 30 minutes WBc down to 13.12, cr 2.55 pleural fluid cx + strep intermedius Results & Data Vital Signs (Past 12 Hours) Vital Signs Temp Pulse Pulse Pulse Resp BP Pulse Ox 01/12/24 13:57 61 01/12/24 12:31 01/12/24 10:53 36.7 C 62 18 133/61 97 01/12/24 07:48 36.6 C 60 19 131/65 97 01/12/24 07:36 63 01/12/24 03:40 36.6 C 60 18 135/65 96 O2 Del Method 01/12/24 13:57 01/12/24 12:31 Room Air 01/12/24 10:53 Room Air 01/12/24 07:48 Room Air 01/12/24 07:36 01/12/24 03:40 Room Air Laboratory Results Short CBC 01/12/24 Range/Units 05:53 WBC 13.12 H (4.8-10.8) K/ul Hgb 11.1 L (14.0-18.0) g/dl Hct 33.3 L (42.0-52.0) % Plt Count 381 (130-400) K/uL BMP 01/12/24 05:53 Sodium 134 L Potassium 4.0 Chloride 100 Carbon Dioxide 24 BUN 57 H Creatinine 2.55 H Glucose 157 H Calcium 7.6 L Diagnostic Findings Microbiology 01/05/24 16:20 Pleural Fluid,Right Acid Fast Bacilli Smear - Final 01/05/24 16:20 Pleural Fluid,Right Acid Fast Bacilli Culture - Preliminary No Acid-Fast Bacilli Isolated - Report 1, Additional Report to Follow. 01/05/24 16:20 Pleural Fluid Gram Stain - Final 01/05/24 16:20 Pleural Fluid Aerobic and Anaerobic Culture - Final Streptococcus intermedius 01/05/24 09:54 Blood Aerobic Blood Culture - Final No growth in Aerobic bottle after 5 days. 01/05/24 09:54 Blood Anaerobic Blood Culture - Final No growth in Anaerobic bottle after 5 days. 01/05/24 09:32 Blood Aerobic Blood Culture - Final No growth in Aerobic bottle after 5 days. 01/05/24 09:32 Blood Anaerobic Blood Culture - Final No growth in Anaerobic bottle after 5 days. Chest X-Ray 01/10/24 09:49 XR chest 2V PA/lateral CLINICAL HISTORY: Empyema. COMPARISON STUDY: Chest CT January 08, 2024. Chest radiograph January 09, 2024. FINDINGS: A right pleural catheter remains in place. A moderate right pleural effusion persists, best shown on lateral projection. There is no pneumothorax. Hazy right lower lung opacity is noted. Left lung is clear. No evidence for pulmonary edema. Cardiomediastinal silhouette is stable. IMPRESSION: Right pleural catheter in place. Moderate right pleural effusion. No pneumothorax. ACT 112: Negative or not required by law. Electronically signed by: Paulo Tellez M.D. 01/10/2024 10:48 AM Chest X-Ray 01/11/24 07:00 XR chest 2V PA/lateral CLINICAL HISTORY: Empyema COMPARISON STUDY: Chest CT January 08, 2024. Chest radiograph January 10, 2024. FINDINGS: Right pleural catheter remains in place. No pneumothorax is identified. A small to moderate right pleural effusion has mildly decreased in size since prior exam. Persistent right mid and lower lung airspace opacity is noted. Cardiomediastinal silhouette is stable. No evidence for pulmonary edema. IMPRESSION: Right pleural catheter in place. Decrease in size of a small to moderate right pleural effusion. No pneumothorax. ACT 112: Negative or not required by law. Electronically signed by: Paulo Tellez M.D. 01/11/2024 9:44 AM Chest X-Ray 01/12/24 08:00 XR chest 1V portable CLINICAL HISTORY: Chest tube ? MIST 2 protocol COMPARISON STUDY: Chest radiograph January 11, 2024. FINDINGS: Right basilar pleural catheter remains in place. A small right pleural effusion persists. There is no pneumothorax. Right mid and lower lung airspace opacity is slightly improved. There is fissural fluid. No evidence for pulmonary edema. IMPRESSION: Right basilar pleural catheter in place. No pneumothorax. No significant change in a small right pleural effusion with right basilar opacity. ACT 112: Negative or not required by law. Electronically signed by: Paulo Tellez M.D. 01/12/2024 7:55 AM Medications Administered Home Medications Medication Instructions Recorded Confirmed Last Taken Novolin R 100u 15 unit subcut DAILY 01/05/24 01/05/24 Unknown Novolin R Regular U100 Insulin 1 unit subcut .SLIDING SCALE PRN 01/05/24 01/05/24 Unknown Other aspirin 81 mg tablet,delayed 81 mg PO DAILY 01/05/24 01/05/24 Unknown release mirtazapine 30 mg tablet 30 mg PO HS 01/05/24 01/05/24 Unknown rosuvastatin 20 mg tablet 20 mg PO DAILY 01/05/24 01/05/24 Unknown Active Medications Generic Name Dose Route Start Last Admin Trade Name Freq PRN Reason Stop Dose Admin Hydromorphone HCl 0.5 mg 01/08/24 14:54 01/09/24 13:28 Hydromorphone Inj 0.5 Mg/0.5 Ml Syr IV 01/22/24 14:53 0.5 mg Q6H PRN Administration Severe Pain (Scale 7, 8, 9,10) Ampicillin Sodium/Sulbactam 100 mls @ 200 mls/hr 01/08/24 16:00 01/12/24 04:53 Sodium 3,000 mg/ Sodium IV 01/15/24 15:59 Infused Chloride Q12H NATASHA Infusion Alteplase, Recombinant 10 mg/ 60 mls @ 0.0006 mls/min 01/12/24 08:30 01/12/24 09:17 Syringe IPL 01/15/24 08:29 0.0006 mls/min Q12H NATASHA Administration Protocol Dornase Sreekanth 5 ml/ Syringe 30 mls @ 0.0006 mls/min 01/12/24 08:30 01/12/24 10:43 IPL 01/15/24 08:29 0.0006 mls/min Q12H NATASHA Administration Protocol Insulin Aspart 0 units 01/05/24 21:00 01/12/24 13:07 Insulin Aspart Per Unit Charge SC 02/04/24 17:59 2 units ACHS NATASHA Administration Insulin Glargine 10 units 01/08/24 09:00 01/12/24 09:13 Lantus Per Unit Charge OH 02/07/24 08:59 10 units QAM NATASHA Administration Metoprolol Tartrate 25 mg 01/09/24 21:00 01/12/24 09:06 Metoprolol Tartrate 25 Mg Tab PO 02/08/24 20:59 25 mg Q12 NATASHA Administration (3) Acute renal failure Acute renal failure type: unspecified Qualified Code(s): N17.9 - Acute kidney failure, unspecified
--- NOTE | 2024-01-12 15:37 | Hospitalist Progress Note ---
Date of Service January 12, 2024 Assessment & Plan (1) Sepsis: Plan: [facility] days of poor oral intake, hyperglycemia, and generalized weakness Found to be in new onset atrial fibrillation with HR in the 120's, with WBC of 20, with right lower lobe pneumonia on CXR and eventually found to have empyema With lactic acidosis with lactate of 10 and procalcitonin elevated at 50 Patient with chest tube placed, had MIST 2 protocol, Pleural effusion growing Streptococcus intermedius Sepsis has now resolved, leukocytosis improving, procalcitonin and CRP both trending downward, remains afebrile Infectious diseases following-recommends 4 to 6 weeks of antibiotics-can transition Unasyn to Augmentin and have repeat chest imaging in 4 weeks (2) Empyema: Plan: As noted above, chest tube in place and had mist 2 protocol and now repeating mist 2 protocol starting 01/11 Streptococcus intermedius is growing and he is on Unasyn with plans to convert to Augmentin once more stable with plans for 4 to 6 weeks of antibiotics Repeat imaging as per pulmonology Appreciate pulmonology management Patient refused to have second chest tube placed in the second area of empyema and also declines evaluation for VATS Follow CBC, BMP (3) Atrial fibrillation with rapid ventricular response: Plan: Patient found to be in new-onset afib RVR with HR in the 120's on arrival and has since converted to sinus rhythm Continue to keep electrolytes replete Started metoprolol 25 Mg p.o. twice daily Monitor on telemetry Holding Eliquis until after done with mist 2 protocol Chadsvasc score is 2, echo here with low normal EF 50-55%, no other abnormalities (4) Acute renal failure: Plan: Cr of 3.98 on admission and now improved to 2.55 with lower urine output on admission Now making urine, Garcia catheter in place Appreciate nephrology consultation-MARY likely ATN related to sepsis, pneumonia, and new onset atrial fibrillation CT abdomen/pelvis 01/04 negative for obstruction Continues to improve each day-continue to monitor BMP, urine output Nephrology has signed off (5) Elevated troponin: Plan: Initial high sen trop elevated at 57 and repeat troponin a few hours later up to 86.3, was not repeated after that Echocardiogram without wall motion abnormalities, no chest pain or ECG changes consistent with ischemia Likely due to demand ischemia with sepsis, acute renal failure, and afib RVR on arrival (6) DM II (diabetes mellitus, type II), controlled: Plan: Holding home insulin regimen of regular and Novolin R Continue Lantus and NovoLog as needed Plan Hyperlipidemia-resume home rosuvastatin, hold home aspirin Depression/anxiety-resume home mirtazapine DVT prophylaxis-eventually will need to start Eliquis but hold for now given mist 2 protocol, add on DALTON hose given peripheral edema Disposition-continued stay in PCU Admission and Anticipated Discharge Date Admission Date: January 05, 2024 Subjective Patient reports some pain at the site of the chest tube. Otherwise denies shortness of breath. Not really coughing up anything. Is eating, has not moved bowels much. Telemetry with normal sinus rhythm with rates in the 60s, some occasional ectopic atrial rhythm Physical Exam Constitutional: WD/WN, vitals as above Respiratory: normal respiratory effort; no cough Auscultation: + diminished lung sounds (At right base); no crackles, no rhonchi and no wheezes Chest tube in place on the right Cardiovascular: Rate/Rhythm: regular rate and regular rhythm Heart Sounds: no murmur Extremities: + edema (1+ pitting edema of the ankles bilaterally) Gastrointestinal (Abdomen): normal bowel sounds, soft, nontender, no hepatosplenomegaly Psychiatric: A+Ox3, euthymic affect Results & Data Results & Data Vital Signs (Past 12 Hours) Vital Signs Temp Pulse Pulse Pulse Resp BP Pulse Ox 01/12/24 15:30 36.7 C 60 19 126/60 97 01/12/24 13:57 61 01/12/24 12:31 01/12/24 10:53 36.7 C 62 18 133/61 97 01/12/24 07:48 36.6 C 60 19 131/65 97 01/12/24 07:36 63 01/12/24 03:40 36.6 C 60 18 135/65 96 O2 Del Method 01/12/24 15:30 Room Air 01/12/24 13:57 01/12/24 12:31 Room Air 01/12/24 10:53 Room Air 01/12/24 07:48 Room Air 01/12/24 07:36 01/12/24 03:40 Room Air Laboratory Results CBC, BMP, procalcitonin, CRP reviewed PG Care Time/CCT Total # of Minutes Spent Total Time Spent with Patient: Total time spent is greater than 50% in coordination of care (as documented) at patient's floor/unit and/or counseling patient: Coding Level of Care Code 71812 SUB INP/OBS CARE 3/50MIN Diagnoses Sepsis A41.9 Sepsis acute organ dysfunction status: unspecified Sepsis type: sepsis due to unspecified organism Empyema J86.9 Atrial fibrillation with rapid ventricular response I48.91 Acute renal failure N17.9 Elevated troponin R79.89 DM II (diabetes mellitus, type II), controlled E11.9 (1) Sepsis Sepsis acute organ dysfunction status: unspecified Sepsis type: sepsis due to unspecified organism Qualified Code(s): A41.9 - Sepsis, unspecified organism
[2024-01-12] MEDS: MIRTAZAPINE TAB 15 MG TAB PO SCH (22:23)
--- NOTE | 2024-01-13 07:18 | XRay Report ---
XR chest 1V portable CLINICAL HISTORY: Chest tube ? MIST 2 protocol COMPARISON STUDY: Chest CT January 08, 2024. Chest radiograph January 12, 2024. FINDINGS: Right basilar pleural catheter remains in place. A small right pleural effusion, including fissural fluid along the major and minor fissures is unchanged. Mild right basilar opacity is unchang ed. There is no pneumothorax. Left lung is clear. Cardiomediastinal silhouette is stable. Pulmonary v ascularity is normal. IMPRESSION: 1. Right basilar pleural catheter in place. 2. No significant change in a small right pleural effusion with mild right basilar opacity. No pneumo thorax. ACT 112: Negative or not required by law. Electronically signed by: aPulo Tellez M.D. 01/13/2024 7:17 AM
[2024-01-13 08:03] LABS: Basophils # (auto) 0.03 K/uL (0.00-0.20); Basophils % (auto) 0.3 %; Eosinophils # (auto) 0.41 K/uL (0.00-0.50); Eosinophils % (auto) 3.7 %; Hematocrit (blood only) 31.6 % (42.0-52.0); Hemoglobin 10.5 g/dl (14.0-18.0); Immature Granulocytes % (auto) 1.8 %; Lymphocytes # (auto) 2.45 K/uL (1.20-3.40); Mean Corpuscular Hemoglobin 28.5 pg (25.0-34.0); Mean Corpuscular Hgb Conc 33.2 g/dL (32.0-36.0); Mean Corpuscular Volume 85.9 fL (80.0-100.0); Mean Platelet Volume 8.9 fL (9.4-12.4); Neutrophils # (auto) 7.07 K/uL (1.40-6.50); Neutrophils % (auto) 63.2 %; Platelet Count 356 K/uL (130-400); RDW Coefficient of Variation 13.9 % (11.5-14.5); RDW Standard Deviation 43.4 fL (36.4-46.3); Red Blood Count 3.68 M/uL (4.70-6.10); White Blood Count 11.16 K/ul (4.8-10.8)
--- NOTE | 2024-01-13 08:28 | Pharmacy Report ---
Pharmacy Glycemic Short Note 2 - Date of Service January 13, 2024 - Glycemic Short BSG Results (Last 24 hours): 01/12/24 01/12/24 01/12/24 05:53 11:46 16:47 Glucose 157 H POC Glucose 127 H 186 H 01/12/24 01/13/24 20:12 07:51 Glucose POC Glucose 171 H 203 H OUTPATIENT ANTIDIABETIC REGIMEN: * Novolin R 15 units SQ daily, Novolin R SSI * HbA1c 8.1% 01/06/24 ASSESSMENT: 01/12: * Blood sugars above goal range intermittently yesterday, ranging 127-186 mg/dL * Received 21 units of insulin (~50/50 basal/bolus split) * Fasting blood sugar of 203 mg/dL today - will increase basal * Remains on Unasyn 01/10: * Blood sugar above goal yesterday evening and this morning, but patient refused AM Lantus - therefore no change in orders at this time. * CR tightened yesterday but unable to evaluate effects, as basal was refused, so no changes in NovoLog either at this time. 01/08: * BSGs have been stable for the past 48 hours. [phone] mg/dL yesterday. * SCr appears to have peaked and is now downtrending- 3.43 today * Fasting within goal range, trending down with 10 units of lantus qAM- continue * Continue current novolog parameters 01/04 * 63 year old admitted with hyperglycemia, poor oral intake, MARY, concerns for sepsis/dehydration, metabolic acidosis, afib. Concerns for pneumonia noted on CT. Scr up to 3.98 mg/dL - per notes, baseline Scr closer to 0.95 per records 2021. Elevated anion gap on admission, provider notes report likely related to acute renal failure. Provider repeating labs again this afternoon, still pending. * DM2 diabetic - pharmacy consulted for glycemic control. Patient NPO - reasonable to start novolog for now and see how BSGs trend. Unknown A1c - will order for tomorrow AM. Given 5 units SQ insulin at lunch time, will continue with novolog Q6 hour checks. PLAN FOR INPATIENT GLYCEMIC CONTROL: * Hold outpatient insulin * Basal insulin - increase * Lantus - 15 unit SC qAM * Bolus insulin - tighten * NovoLog per scale ACHS or Q6hrs while NPO * Goal Range: Low 110 mg/dL - High 140 mg/dL * Correction Factor: 25 mg/dL/unit * Nutritional / Prandial insulin per carb ratio of 1 unit per 9 grams CHO consumed
[2024-01-13 08:35] LABS: Calcium 7.4 mg/dl (8.6-10.3); Magnesium 1.9 mg/dl (1.7-2.4); Potassium 3.7 mmol/L (3.5-5.1)
[2024-01-13 08:41] LABS: BUN Creatinine Ratio 21.6 (10-20); Creatinine Clr Calc Pharmacy 25.7 ml/min; Est GFR (African American) 28.8 ml/min; Est GFR (Non-African American) 24.9 ml/min
--- NOTE | 2024-01-13 09:05 | Pulmonology Progress Note ---
Date of Service January 13, 2024 Assessment & Plan (1) Empyema: (2) Acute pneumonia: Plan Impression: 63 y/o male with PMH of DM2 and adjustment disorder with empyema and pneumonia Recommendations: 1. Empyema: There is persistent purulent drainage emanating from the chest tube. Given the purulent nature of this pleural fluid and the patient's expressed desire to avoid any additional procedures, we will proceed with a conservative course at this point in time and continue the tube until drainage is less than 200 cc per 24 hours and relatively clear. Continue with intrapleural fibrinolysis at this point in time. Will need follow-up chest x- ray in 4 to 6 weeks 2. Pneumonia: No indication for trending procalcitonin at this point in time. Currently day #8 antibiotics (4 days Zosyn, 4 days Unasyn). Transition to oral Augmentin. Will need 6 weeks of therapy. Sensitivities not performed on strep intermedius isolate. Will continue to follow. Please contact us with questions or concerns Admission and Anticipated Discharge Date Admission Date: January 05, 2024 Subjective Patient seen and examined. He complains of diffuse bodyaches. He is not having any pain at the chest tube site. He is not coughing or bringing up any phlegm. Review of Systems 2 Review of Systems: All systems reviewed & are unremarkable except as noted in Subjective Physical Exam 2 Constitutional: + thin and + disheveled; no acute distre ss Neck: trachea midline, no thyromegaly Respiratory: no respiratory distress, no labored breathing, no cough and not tachypneic Auscultation: + diminished lung sounds Cardiovascular: RRR, no murmur, no edema Gastrointestinal (Abdomen): normal bowel sounds, soft, nontender, no hepatosplenomegaly Musculoskeletal: Extremities: extremities normal to inspection Skin: no rashes, warm and dry Lymphatic: no cervical lymphadenopathy Results & Data Results & Data Vital Signs (Past 12 Hours) Vital Signs Temp Pulse Pulse Resp BP Pulse Ox O2 Del Method 01/13/24 07:22 36.6 C 57 L 16 144/64 H 98 Room Air 01/13/24 02:22 36.5 C 61 18 141/68 H 97 Room Air 01/13/24 00:02 62 01/12/24 23:08 Room Air 01/12/24 22:47 36.7 C 60 18 132/65 97 Room Air Laboratory Results 01/13/24 07:40 01/13/24 07:40 Diagnostic Findings Chest x-ray today was independently reviewed. Tubes in good position. Small effusion on the right side with some fluid tracking into the fissure. PG Care Time/CCT Total # of Minutes Spent Total Time Spent with Patient: Total time spent is greater than 50% in coordination of care (as documented) at patient's floor/unit and/or counseling patient: Coding Level of Care Code 15502 SUB INP/OBS CARE 2/35MIN Diagnoses Empyema J86.9 Acute pneumonia J18.9
[2024-01-13] MEDS: LANTUS PER UNIT CHARGE SC SCH (09:12)
[2024-01-13] MEDS: ROSUVASTATIN CALCIUM 20 MG TAB PO SCH (09:12)
[2024-01-13] MEDS: POTASSIUM CHLORIDE CRTAB 20 MEQ TABCR PO STA (11:29)
[2024-01-13] MEDS: MAGNESIUM SULFATE / D5W 1 GM/100 ML BAG IV ONE (11:30)
--- NOTE | 2024-01-13 16:05 | Hospitalist Progress Note ---
Date of Service January 13, 2024 Assessment & Plan (1) Sepsis: Plan: Presented from [facility] due to multiple days of poor oral intake, hyperglycemia, and generalized weakness Found to be in new onset atrial fibrillation with HR in the 120's, with WBC of 20, with right lower lobe pneumonia on CXR and eventually found to have empyema With lactic acidosis with lactate of 10 and procalcitonin elevated at 50 Patient with chest tube placed, had MIST 2 protocol, Pleural effusion growing Streptococcus intermedius Sepsis has now resolved, leukocytosis improving, procalcitonin and CRP both trending downward, remains afebrile Infectious diseases following-recommends 4 to 6 weeks of antibiotics-can now transition Unasyn to Augmentin and have repeat chest imaging in 4 weeks (2) Empyema: Plan: As noted above, chest tube in place and had mist 2 protocol and now repeating mist 2 protocol starting 01/11 for ongoing pleural effusions as patient declines to have second chest tube placed Streptococcus intermedius is growing and he was on Unasyn-now convert to Augmentin for 4 to 6 weeks of antibiotics Follow daily chest x-ray here and then likely CT of the chest in 4 weeks Appreciate pulmonology management Patient refused to have second chest tube placed in the second area of empyema and also declines evaluation for VATS Follow CBC, BMP (3) Atrial fibrillation with rapid ventricular response: Plan: Patient found to be in new-onset afib RVR with HR in the 120's on arrival and has since converted to sinus rhythm Continue to keep electrolytes replete-give potassium and magnesium today Started metoprolol 25 Mg p.o. twice daily-lower parameters to hold for heart rate less than 55 Continue to monitor on telemetry Holding Eliquis until after done with mist 2 protocol Chadsvasc score is 2, echo here with low normal EF 50-55%, no other abnormalities (4) Acute renal failure: Plan: Cr of 3.98 on admission and now improved but stable at 2.59 Continues to be making urine, Garcia catheter maintained in place Appreciate nephrology consultation-MARY likely ATN related to sepsis, pneumonia, and new onset atrial fibrillation CT abdomen/pelvis 01/04 negative for obstruction Continues to improve each day-continue to monitor BMP, urine output Nephrology has signed off (5) Elevated troponin: Plan: Initial high sen trop elevated at 57 and repeat troponin a few hours later up to 86.3, was not repeated after that Echocardiogram without wall motion abnormalities, no chest pain or ECG changes consistent with ischemia Likely due to demand ischemia with sepsis, acute renal failure, and afib RVR on arrival (6) DM II (diabetes mellitus, type II), controlled: Plan: Holding home insulin regimen of regular and Novolin R Continue Lantus and NovoLog as needed Plan Hyperlipidemia- Continue rosuvastatin, hold home aspirin while getting mist 2 protocol Depression/anxiety-continue home mirtazapine DVT prophylaxis-eventually will need to start Eliquis but hold for now given mist 2 protocol, continue DALTON hose Disposition-continued stay in PCU Admission and Anticipated Discharge Date Admission Date: January 05, 2024 Subjective Patient reports the pain in his back and chest is improving a little each day. He still has not moved his bowels but feels like he might later today. Not coughing up much. Telemetry with normal sinus rhythm with rates in the 60s to 70s Physical Exam Constitutional: WD/WN, vitals as above Respiratory: normal respiratory effort; no cough Auscultation: + diminished lung sounds (At right base); no crackles, no rhonchi and no wheezes Cardiovascular: Rate/Rhythm: regular rate and regular rhythm Heart Sounds: no murmur Extremities: no edema (Resolved from yesterday, DALTON hose in place) Chest (Breasts): Chest: + abnormal inspection of chest (Chest tube with dressing in place right axilla) Gastrointestinal (Abdomen): normal bowel sounds, soft, nontender, no hepatosplenomegaly Psychiatric: A+Ox3, euthymic affect Results & Data Results & Data Vital Signs (Past 12 Hours) Vital Signs Temp Pulse Pulse Resp BP Pulse Ox O2 Del Method 01/13/24 15:19 36.6 C 59 L 18 122/67 97 Room Air 01/13/24 14:48 70 01/13/24 10:50 36.4 C L 62 18 130/66 98 Room Air 01/13/24 10:39 60 01/13/24 09:34 Room Air 01/13/24 07:22 36.6 C 57 L 16 144/64 H 98 Room Air Laboratory Results CBC, BMP, magnesium reviewed Diagnostic Findings Chest x-ray image reviewed PG Care Time/CCT Total # of Minutes Spent Total Time Spent with Patient: Total time spent is greater than 50% in coordination of care (as documented) at patient's floor/unit and/or counseling patient: Coding Level of Care Code 52602 SUB INP/OBS CARE 2/35MIN Diagnoses Sepsis A41.9 Sepsis acute organ dysfunction status: unspecified Sepsis type: sepsis due to unspecified organism Empyema J86.9 Atrial fibrillation with rapid ventricular response I48.91 Acute renal failure N17.9 Elevated troponin R79.89 DM II (diabetes mellitus, type II), controlled E11.9 (1) Sepsis Sepsis acute organ dysfunction status: unspecified Sepsis type: sepsis due to unspecified organism Qualified Code(s): A41.9 - Sepsis, unspecified organism
[2024-01-13] MEDS: AMOXICILLIN/CLAVULANATE 500 MG TAB PO SCH (17:49)
[2024-01-13] MEDS: DOCUSATE SODIUM/SENNA 50/8.6MG TAB PO SCH (21:36)
--- NOTE | 2024-01-14 07:26 | XRay Report ---
XR chest 1V portable CLINICAL HISTORY: Chest tube ? MIST 2 protocol TECHNIQUE: Single frontal radiograph of the chest was obtained. Comparison: Comparison is made to chest radiograph 01/13/2024 FINDINGS: Right chest tube is seen. The cardiomediastinal silhouette is normal. Right lower lung airspace opaci ty is seen. No pneumothorax. IMPRESSION: Stable right chest tube with no evidence of pneumothorax. Right lower lung airspace opacity is compat ible with atelectasis. ACT 112: Negative or not required by law. Electronically signed by: Andrea Guillermo M.D. 01/14/2024 7:24 AM
[2024-01-14 08:45] LABS: Basophils # (auto) 0.02 K/uL (0.00-0.20); Basophils % (auto) 0.2 %; Eosinophils % (auto) 3.4 %; Hemoglobin 10.8 g/dl (14.0-18.0); Immature Granulocytes # (auto) 0.15 K/uL (0.01-0.20); Immature Granulocytes % (auto) 1.3 %; Lymphocytes # (auto) 2.23 K/uL (1.20-3.40); Lymphocytes % (auto) 19.2 %; Mean Corpuscular Hemoglobin 28.3 pg (25.0-34.0); Mean Corpuscular Hgb Conc 32.7 g/dL (32.0-36.0); Mean Corpuscular Volume 86.6 fL (80.0-100.0); Mean Platelet Volume 8.8 fL (9.4-12.4); Monocytes # (auto) 0.89 K/uL (0.11-0.59); Monocytes % (auto) 7.6 %; Neutrophils # (auto) 7.95 K/uL (1.40-6.50); Neutrophils % (auto) 68.3 %; Platelet Count 425 K/uL (130-400); RDW Coefficient of Variation 14.2 % (11.5-14.5); RDW Standard Deviation 43.8 fL (36.4-46.3); Red Blood Count 3.81 M/uL (4.70-6.10); White Blood Count 11.64 K/ul (4.8-10.8)
[2024-01-14 08:53] LABS: BUN Creatinine Ratio 22.8 (10-20); Creatinine Clr Calc Pharmacy 30.4 ml/min; Est GFR (African American) 35.3 ml/min; Est GFR (Non-African American) 30.5 ml/min; Magnesium 1.9 mg/dl (1.7-2.4); Potassium 4.4 mmol/L (3.5-5.1)
--- NOTE | 2024-01-14 09:06 | Pulmonology Progress Note ---
Date of Service January 14, 2024 Assessment & Plan (1) Empyema: (2) Acute pneumonia: Plan Impression: 63 y/o male with PMH of DM2 and adjustment disorder with empyema and pneumonia. The tube continues to drain tobias pus Recommendations: 1. Empyema: There is persistent purulent drainage emanating from the chest tube. Will plan on repeating a noncontrast CT of the chest to see if there is residual fluid in where the pocket is located. I do long discussion with the patient. He is concerned about an additional tube causing pain. I advised him that it would be no more painful than the current tube that he has and it may facilitate getting him out of the hospital. He states he would like to take it under consideration. Output has decreased but given its purulent nature, I am concerned about potential early removal of the tube. 2. Pneumonia: Continue oral Augmentin. Will need 6 weeks of therapy. Sensitivities not performed on strep intermedius isolate. Will continue to follow. Please contact us with questions or concerns Admission and Anticipated Discharge Date Admission Date: January 05, 2024 Subjective Patient seen and examined. EMR reviewed. The patient reports that his pain control is adequate. He is not coughing or expectorating phlegm. He feels about the same as yesterday. Review of Systems 2 Review of Systems: All systems reviewed & are unremarkable except as noted in Subjective Physical Exam 2 Constitutional: + thin and + disheveled; no acute distre ss Neck: trachea midline, no thyromegaly Respiratory: no respiratory distress, no labored breathing, no cough and not tachypneic Auscultation: + diminished lung sounds Cardiovascular: RRR, no murmur, no edema Chest (Breasts): Additional Comments: Persistent purulent discharge from the chest tube Gastrointestinal (Abdomen): normal bowel sounds, soft, nontender, no hepatosplenomegaly Musculoskeletal: Extremities: extremities normal to inspection Skin: no rashes, warm and dry Lymphatic: no cervical lymphadenopathy Results & Data Results & Data Vital Signs (Past 12 Hours) Vital Signs Temp Pulse Pulse Resp BP Pulse Ox O2 Del Method 01/14/24 07:45 54 L 01/14/24 07:29 36.7 C 62 18 163/64 H 95 Room Air 01/14/24 02:55 36.3 C L 59 L 18 156/74 H 97 Room Air 01/13/24 23:27 36.9 C 61 18 139/61 96 Room Air 01/13/24 22:55 63 01/13/24 22:25 Room Air Laboratory Results 01/14/24 08:13 01/14/24 08:13 Diagnostic Findings Chest x-ray today was independently reviewed. The tube appears to be in good position. Unclear if there is posterior subpulmonic fluid which remains. PG Care Time/CCT Total # of Minutes Spent Total Time Spent with Patient: Total time spent is greater than 50% in coordination of care (as documented) at patient's floor/unit and/or counseling patient: Coding Level of Care Code 03697 SUB INP/OBS CARE 2/35MIN Diagnoses Empyema J86.9 Acute pneumonia J18.9
[2024-01-14] MEDS: POLYETHYLENE (MIRALAX) 17 GM PACK PO SCH (09:24)
--- NOTE | 2024-01-14 11:49 | CT Scan Report ---
CT chest diagnostic wo con CLINICAL HISTORY: empyema, residual fluid? TECHNIQUE: Multidetector row helical CT of the chest was performed. Coronal and sagittal reformations were obtained. Automated dose lowering techniques and/or adjustment according to patient size were u tilized for this exam. CT DOSE: 379.75 mGy.cm Comparison: Comparison is made to CT chest 01/08/2024 FINDINGS: Lungs and pleura: Tree-in-bud nodularity is most prominent in the left lower lobe. Small thick-walled right pleural effusion is improved from prior exam. A few pulmonary calcifications are seen. A right chest tube is seen without evidence of pneumothorax. Heart and pericardium: Heart size is normal. No pericardial effusion. Vessels: Severe atherosclerotic changes in the aorta and coronary arteries. Mediastinum and aba: Subcentimeter lymph nodes are seen. Chest wall and lower neck: Unremarkable. Abdomen: A hiatal hernia is seen. Bones: Degenerative changes in the thoracic spine. IMPRESSION: Small thick walled right pleural effusion is decreased in size from prior exam. A right chest tube re estrella. Tree-in-bud nodularity in the left lower lobe is compatible with infectious/inflammatory proce ss, similar to prior exam. ACT 112: Negative or not required by law. Electronically signed by: Andrea Guillermo M.D. 01/14/2024 11:47 AM
[2024-01-14] MEDS ORDERED: DOCUSATE SODIUM/SENNA 50/8.6MG TAB PO PRN (11:50)
--- NOTE | 2024-01-14 12:15 | Hospitalist Progress Note ---
Date of Service January 14, 2024 Assessment & Plan (1) Sepsis: Plan: Presented from [facility] due to multiple days of poor oral intake, hyperglycemia, and generalized weakness Found to be in new onset atrial fibrillation with HR in the 120's, with WBC of 20, with right lower lobe pneumonia on CXR and eventually found to have empyema With lactic acidosis with lactate of 10 and procalcitonin elevated at 50 Patient with chest tube placed, had MIST 2 protocol, Pleural effusion growing Streptococcus intermedius Sepsis has now resolved, leukocytosis improving, procalcitonin and CRP both trending downward, remains afebrile Infectious diseases following-recommends 4 to 6 weeks of antibiotics-have now transitioned Unasyn to Augmentin and should have repeat chest imaging in 4 weeks Follow CBC, BMP (2) Empyema: Plan: As noted above, chest tube in place and had mist 2 protocol and now repeating mist 2 protocol starting 01/11 for ongoing pleural effusions as patient declines to have second chest tube placed Streptococcus intermedius is growing and he was on Unasyn-now convert to Augmentin for 4 to 6 weeks of antibiotics Follow daily chest x-ray here and then likely CT of the chest in [address] 01/13 as per PULM to see if has another loculated effusion that can be drained-pending Appreciate pulmonology management Patient initially refused to have second chest tube placed in the second area of empyema but will reconsider now if needed Follow CBC, BMP oxycodone, IV dilaudid for pain as needed but he refuses these (3) Atrial fibrillation with rapid ventricular response: Plan: Patient found to be in new-onset afib RVR with HR in the 120's on arrival and has since converted to sinus rhythm Continue to keep electrolytes replete-give potassium and magnesium today Started metoprolol 25 Mg p.o. twice daily-lowered parameters to hold for heart rate less than 55 Continue to monitor on telemetry Holding Eliquis until after done with mist 2 protocol Chadsvasc score is 2, echo here with low normal EF 50-55%, no other abnormalities (4) Acute renal failure: Plan: Cr of 3.98 on admission and now continues to be improving to 2.19 Continues to be making urine, Garcia catheter maintained in place Appreciate nephrology consultation-MARY likely ATN related to sepsis, pneumonia, and new onset atrial fibrillation CT abdomen/pelvis 01/04 negative for obstruction Continues to improve each day-continue to monitor BMP, urine output Nephrology has signed off (5) Elevated troponin: Plan: Initial high sen trop elevated at 57 and repeat troponin a few hours later up to 86.3, was not repeated after that Echocardiogram without wall motion abnormalities, no chest pain or ECG changes consistent with ischemia Likely due to demand ischemia with sepsis, acute renal failure, and afib RVR on arrival (6) DM II (diabetes mellitus, type II), controlled: Plan: Holding home insulin regimen of regular and Novolin R Continue Lantus and NovoLog as needed Plan Hyperlipidemia- Continue rosuvastatin, hold home aspirin while getting mist 2 protocol Depression/anxiety-continue home mirtazapine Constipation-improved on 01/13, make senna/docusate prn, dc daily Miralax DVT prophylaxis-eventually will need to start Eliquis but hold for now given mist 2 protocol, continue DALTON hose Disposition-continued stay in PCU Admission and Anticipated Discharge Date Admission Date: January 05, 2024 Subjective Pt reports ongoing pain from right sided chest tube but declines to take pain meds. He did move his bowels today and does not want to take any more laxatives. Otherwise no SOB. Is too weak to move but knows he needs to start sitting up at least on side of bed. Tele with NSR rate 60s Physical Exam Constitutional: WD/WN, vitals as above Respiratory: normal respiratory effort; no cough Auscultation: + diminished lung sounds (At right base); no crackles, no rhonchi and no wheezes Cardiovascular: Rate/Rhythm: regular rate and regular rhythm Heart Sounds: no murmur Extremities: no edema Chest (Breasts): Chest: + abnormal inspection of chest (Chest tube with dressing in place right axilla) Gastrointestinal (Abdomen): normal bowel sounds, soft, nontender, no hepatosplenomegaly Psychiatric: A+Ox3, euthymic affect Results & Data Results & Data Vital Signs (Past 12 Hours) Vital Signs Temp Pulse Pulse Resp BP Pulse Ox O2 Del Method 01/14/24 11:05 Room Air 01/14/24 10:41 36.6 C 67 17 119/61 96 Room Air 01/14/24 07:45 54 L 01/14/24 07:29 36.7 C 62 18 163/64 H 95 Room Air 01/14/24 02:55 36.3 C L 59 L 18 156/74 H 97 Room Air Laboratory Results CBC, BMP, magnesium reviewed Diagnostic Findings CT Chest reviewed PG Care Time/CCT Total # of Minutes Spent Total Time Spent with Patient: Total time spent is greater than 50% in coordination of care (as documented) at patient's floor/unit and/or counseling patient: Coding Level of Care Code 45028 SUB INP/OBS CARE 2/35MIN Diagnoses Sepsis A41.9 Sepsis acute organ dysfunction status: unspecified Sepsis type: sepsis due to unspecified organism Empyema J86.9 Atrial fibrillation with rapid ventricular response I48.91 Acute renal failure N17.9 Elevated troponin R79.89 DM II (diabetes mellitus, type II), controlled E11.9 (1) Sepsis Sepsis acute organ dysfunction status: unspecified Sepsis type: sepsis due to unspecified organism Qualified Code(s): A41.9 - Sepsis, unspecified organism
[2024-01-14] MEDS: AMOXICILLIN/CLAVULANATE 875 MG TAB PO SCH (20:45)
[2024-01-15 06:26] LABS: Basophils # (auto) 0.05 K/uL (0.00-0.20); Basophils % (auto) 0.4 %; Eosinophils # (auto) 0.47 K/uL (0.00-0.50); Eosinophils % (auto) 3.7 %; Hematocrit (blood only) 30.4 % (42.0-52.0); Immature Granulocytes # (auto) 0.13 K/uL (0.01-0.20); Lymphocytes # (auto) 2.94 K/uL (1.20-3.40); Mean Corpuscular Hemoglobin 28.7 pg (25.0-34.0); Mean Corpuscular Hgb Conc 32.9 g/dL (32.0-36.0); Mean Corpuscular Volume 87.1 fL (80.0-100.0); Mean Platelet Volume 8.8 fL (9.4-12.4); Monocytes # (auto) 1.09 K/uL (0.11-0.59); Monocytes % (auto) 8.5 %; Neutrophils # (auto) 8.09 K/uL (1.40-6.50); Neutrophils % (auto) 63.4 %; Platelet Count 390 K/uL (130-400); RDW Coefficient of Variation 14.5 % (11.5-14.5); RDW Standard Deviation 44.3 fL (36.4-46.3); Red Blood Count 3.49 M/uL (4.70-6.10); White Blood Count 12.77 K/ul (4.8-10.8)
[2024-01-15 06:48] LABS: BUN Creatinine Ratio 22.5 (10-20); C Reactive Protein 3.2 mg/dl (0-0.5); Calcium 7.7 mg/dl (8.6-10.3); Creatinine Clr Calc Pharmacy 31.9 ml/min; Est GFR (African American) 37.4 ml/min; Est GFR (Non-African American) 32.3 ml/min; Magnesium 1.7 mg/dl (1.7-2.4)
--- NOTE | 2024-01-15 07:25 | XRay Report ---
XR chest 1V portable CLINICAL HISTORY: Chest tube ? MIST 2 protocol TECHNIQUE: Single frontal radiograph of the chest was obtained. Comparison: Comparison is made to chest radiograph 01/14/2024 FINDINGS: Right chest tube is unchanged. The cardiomediastinal silhouette is stable. Airspace opacities are in the right lower lung. No evidence of pleural effusion or pneumothorax. IMPRESSION: Interval stability of right chest tube with no evidence of pneumothorax. Lower lung airspace opacity is again seen compatible with atelectasis. ACT 112: Negative or not required by law. Electronically signed by: Andrea Guillermo M.D. 01/15/2024 7:24 AM
[2024-01-15] MEDS: LIDOCAINE 1% LOCAL 20 ML VIAL ONE (10:10)
--- NOTE | 2024-01-15 10:11 | Pulmonology Progress Note ---
Date of Service January 15, 2024 Assessment & Plan (1) Empyema: (2) Acute pneumonia: Plan Impression: 63 y/o male with PMH of DM2 and adjustment disorder with empyema and pneumonia. CT scan showed a loculated posterior fluid collection with split pleural sign concerning for persistent empyema. Recommendations: 1. Empyema: Discussed extensively CT findings with the patient. He has a posterior component of the empyema which is decreased from prior but now has a split pleural sign and may not be adequately drained by the current tube which sits in the fissure. A long discussion with the patient regarding options at this point time. We could proceed with definitive surgery which would likely provide him the fastest road to recovery and definitive treatment. Alternatively, we could try and place a second small bore tube posteriorly. Continuing to pursue the same therapy would likely not result in resolution of the patient's symptoms and I would not recommend this course. After careful consideration the patient is agreeable to placement of a second percutaneous ultrasound-guided tube. Hopefully this will result in evacuation and clearing of the pleural space infection. 2. Pneumonia: Continue oral Augmentin. Will need 6 weeks of therapy. Sensitivities not performed on strep intermedius isolate. Will continue to follow. Please contact us with questions or concerns Admission and Anticipated Discharge Date Admission Date: January 05, 2024 Subjective Patient seen and examined. EMR reviewed. The patient reports he feels about the same. He is not having any persistent pain. No cough or sputum production. Review of Systems Review of Systems: All systems reviewed & are unremarkable except as noted in Subjective Physical Exam Constitutional: + thin and + disheveled; no acute distre ss Neck: trachea midline, no thyromegaly Respiratory: no respiratory distress, no labored breathing, no cough and not tachypneic Auscultation: + diminished lung sounds Cardiovascular: RRR, no murmur, no edema Gastrointestinal (Abdomen): normal bowel sounds, soft, nontender, no hepatosplenomegaly Musculoskeletal: Extremities: extremities normal to inspection Skin: no rashes, warm and dry Lymphatic: no cervical lymphadenopathy Results & Data Results & Data Vital Signs (Past 12 Hours) Vital Signs Temp Pulse Resp BP Pulse Ox O2 Del Method 01/15/24 07:25 36.6 C 60 20 131/58 L 97 Room Air 01/15/24 02:45 36.6 C 61 18 146/64 H 97 Room Air 01/14/24 22:46 36.6 C 60 18 124/57 L 97 Room Air Critical Care Results & Data Vital Signs (Past 12 Hours) Vital Signs Temp Pulse Resp BP Pulse Ox O2 Del Method 01/15/24 07:25 36.6 C 60 20 131/58 L 97 Room Air 01/15/24 02:45 36.6 C 61 18 146/64 H 97 Room Air 01/14/24 22:46 36.6 C 60 18 124/57 L 97 Room Air Lab & Micro Results (Past 24 Hours) RBC 3.49 M/uL (4.70-6.10) L 01/15/24 WBC 12.77 K/ul (4.8-10.8) H 01/15/24 Hgb 10.0 g/dl (14.0-18.0) L 01/15/24 Hct 30.4 % (42.0-52.0) L 01/15/24 MCV 87.1 fL (80.0-100.0) 01/15/24 MCH 28.7 pg (25.0-34.0) 01/15/24 MCHC 32.9 g/dL (32.0-36.0) 01/15/24 RDW Standard Deviation 44.3 fL (36.4-46.3) 01/15/24 RDW Coefficient of Variation 14.5 % (11.5-14.5) 01/15/24 Plt Count 390 K/uL (130-400) 01/15/24 MPV 8.8 fL (9.4-12.4) L 01/15/24 Neutrophils (%) (Auto) 63.4 % 01/15/24 Lymphocytes (%) (Auto) 23.0 % 01/15/24 Monocytes # (Auto) 1.09 K/uL (0.11-0.59) H 01/15/24 Eosinophils # (Auto) 0.47 K/uL (0.00-0.50) 01/15/24 Immature Granulocyte % (Auto) 1.0 % 01/15/24 Neutrophils # (Auto) 8.09 K/uL (1.40-6.50) H 01/15/24 Lymphocytes # (Auto) 2.94 K/uL (1.20-3.40) 01/15/24 Monocytes # (Auto) 1.09 K/uL (0.11-0.59) H 01/15/24 Eosinophils # (Auto) 0.47 K/uL (0.00-0.50) 01/15/24 Basophils # (Auto) 0.05 K/uL (0.00-0.20) 01/15/24 Immature Granulocyte # (Auto) 0.13 K/uL (0.01-0.20) 4 Na 138 mmol/L (136-145) 01/15/24 K 4.0 mmol/L (3.5-5.1) 01/15/24 Cl 106 mmol/L (98-107) 01/15/24 CO2 27 mmol/L (21-32) 01/15/24 Anion Gap 5 (3-11) 01/15/24 BUN 47 mg/dl (6-23) H 01/15/24 Creatinine 2.09 mg/dl (0.6-1.4) H 01/15/24 Estimated GFR ( Amer) 37.4 ml/min 01/15/24 Estimated GFR (Non-Af Amer) 32.3 ml/min 01/15/24 BUN/Creatinine Ratio 22.5 (10-20) H 01/15/24 Glu 122 mg/dl (70-99(Fasting)) H 01/15/24 Ca 7.7 mg/dl (8.6-10.3) L 01/15/24 Mg 1.7 mg/dl (1.7-2.4) 01/15/24 05:48 Calcium Level 7.7 mg/dl (8.6-10.3) L 01/15/24 05:48 Diagnostic Findings (Past 24 Hours) Chest CT 01/14/24 09:03 CT chest diagnostic wo con CLINICAL HISTORY: empyema, residual fluid? TECHNIQUE: Multidetector row helical CT of the chest was performed. Coronal and sagittal reformations were obtained. Automated dose lowering techniques and/or adjustment according to patient size were utilized for this exam. CT DOSE: 379.75 mGy.cm Comparison: Comparison is made to CT chest 01/08/2024 FINDINGS: Lungs and pleura: Tree-in-bud nodularity is most prominent in the left lower lobe. Small thick-walled right pleural effusion is improved from prior exam. A few pulmonary calcifications are seen. A right chest tube is seen without evidence of pneumothorax. Heart and pericardium: Heart size is normal. No pericardial effusion. Vessels: Severe atherosclerotic changes in the aorta and coronary arteries. Mediastinum and aba: Subcentimeter lymph nodes are seen. Chest wall and lower neck: Unremarkable. Abdomen: A hiatal hernia is seen. Bones: Degenerative changes in the thoracic spine. IMPRESSION: Small thick walled right pleural effusion is decreased in size from prior exam. A right chest tube remains. Tree-in-bud nodularity in the left lower lobe is compatible with infectious/inflammatory process, similar to prior exam. ACT 112: Negative or not required by law. Electronically signed by: Andrea Guillermo M.D. 01/14/2024 11:47 AM Chest X-Ray 01/15/24 08:00 XR chest 1V portable CLINICAL HISTORY: Chest tube ? MIST 2 protocol TECHNIQUE: Single frontal radiograph of the chest was obtained. Comparison: Comparison is made to chest radiograph 01/14/2024 FINDINGS: Right chest tube is unchanged. The cardiomediastinal silhouette is stable. Airspace opacities are in the right lower lung. No evidence of pleural effusion or pneumothorax. IMPRESSION: Interval stability of right chest tube with no evidence of pneumothorax. Lower lung airspace opacity is again seen compatible with atelectasis. ACT 112: Negative or not required by law. Electronically signed by: Andrea Guillermo M.D. 01/15/2024 7:24 AM I & O Totals 24 Hours 01/14/24 01/15/24 01/16/24 06:59 06:59 06:59 Intake Total 470 / 470 360 / 360 Output Total 1670 / 1670 1658 / 1658 Balance -1200 / -1200 -1298 / -1298 Cumulative 01/05/24 08:59 thru 01/15/24 06:18 Intake Total 8815 Output Total 25062 Balance -6245 RT Ventilator Mngmt (Last Documented) Ventilator Ordered Settings Respiratory Rate 20 01/15/24 07:25 Ventilator - PT Measurements Respiratory Rate 20 PG Care Time/CCT Total # of Minutes Spent Total Time Spent with Patient: Total time spent is greater than 50% in coordination of care (as documented) at patient's floor/unit and/or counseling patient: Coding Level of Care Code 67698 SUB INP/OBS CARE 3/50MIN Diagnoses Empyema J86.9 Acute pneumonia J18.9
--- NOTE | 2024-01-15 10:16 | Procedure Note ---
Procedure Note Date of Service January 15, 2024 Note Procedure: 14 Swazi pigtail catheter placement Indication: Persistent empyema Consent risk and benefits were discussed with the patient. He agreed. Division Superintendent Dr. Jade Estimated blood loss: Less than 5 mL Anesthesia: 10 mL 1% lidocaine without epinephrine locally. Procedure: The patient been admitted with parapneumonic effusion/empyema. He has completed the mist 2 protocol with the initial [address] scan demonstrated a persistent posterior fluid collection concerning for residual empyema not drained by the current tube. He was agreeable to placement of a secondary tube. I discussed risk and benefits of chest tube placement with the patient to include surgery versus doing nothing. Patient is agreeable to proceed The patient was placed in a upright seated position. Thoracic ultrasound was performed of the right chest lateral and superior to the previously placed chest tube. A small area of fluid collection above the diaphragm was identified and marked. This was approximately 4 cm superior and 6 cm lateral to the current tube. A sterile field was established with chlorhexidine and drape applied. The skin and subcutaneous tissues down to the pleura were anesthetized with lidocaine. I was able to aspirate purulent material with the finder needle. Finder needle was withdrawn and a skin lindsay was made with a scalpel. An 18- gauge needle was advanced on a similar midline until I was able to aspirate similar purulent material. The syringe was removed leaving the needle in place. A wire was passed through the needle into the pleural space. The needle was withdrawn leaving the wire in place. A 14 Swazi dilator was then passed over the wire into the pleural space dilating the tract and a 14 Swazi pigtail locking skater catheter was then advanced over the wire into the pleural space. The straightening catheter for the pigtail catheter and wire were removed. The pigtail mechanism was locked in place and attached to drainage system with removal of approximately 40 cc of serosanguineous purulent material. The patient tolerated the procedure well. Follow-up chest x-ray pending Will initiate mist 2 protocol through the second catheter and follow chest x-ray and output. Maintain initial catheter on suction for now Coding CPT Codes Pulmonary/Thoracic - Pulmonary and Thoracic: 15929 Tube thoracostomy ([id number]) Pulmonary/Thoracic - Pulmonary and Thoracic: 15992 US, Chest, real time with imaging documentation ([id number]) [facility] [place] Procedure Codes (Charges) Pulmonary/Thoracic Procedure 1: Pulmonary and Thoracic: 57667 Tube thoracostomy Procedure 2: Pulmonary and Thoracic: 04171 US, Chest, real time with imaging documentation
[2024-01-15] MEDS: LIDOCAINE 1% LOCAL 20 ML VIAL INFIL ONE (10:27)
[2024-01-15] MEDS: MAGNESIUM SULFATE / D5W 1 GM/100 ML BAG IV SCH (10:36)
--- NOTE | 2024-01-15 10:38 | XRay Report ---
XR chest 1V portable CLINICAL HISTORY: Post chest tube placement TECHNIQUE: Single frontal radiograph of the chest was obtained. Comparison: Comparison is made to chest radiograph 01/15/2024 FINDINGS: An additional chest tube has been placed. The cardiomediastinal silhouette is normal. The lungs are c lear apart from atelectasis in the right lower lung. No evidence of pleural effusion or pneumothorax. IMPRESSION: Interval placement of an additional right chest tube with no evidence of pneumothorax. ACT 112: Negative or not required by law. Electronically signed by: Andrea Guillermo M.D. 01/15/2024 10:35 AM
[2024-01-15] MEDS: ALTEPLASE, RECOMBINANT 10 MG in SYRINGE 50 ML IPL SCH (11:22)
[2024-01-15] MEDS: DORNASE ALFA 5 ML in SYRINGE 25 ML IPL SCH (12:36)
--- NOTE | 2024-01-15 17:08 | Hospitalist Progress Note ---
Date of Service January 15, 2024 Assessment & Plan (1) Sepsis: Plan: Presented from [facility] due to multiple days of poor oral intake, hyperglycemia, and generalized weakness Found to be in new onset atrial fibrillation with HR in the 120's, with WBC of 20, with right lower lobe pneumonia on CXR and eventually found to have empyema With lactic acidosis with lactate of 10 and procalcitonin elevated at 50 Patient with chest tubes placed in 2 different loculated empyemas, undergoing MIST 2 protocol, Pleural effusion growing Streptococcus intermedius Sepsis has now resolved, leukocytosis improving but not resolved, procalcitonin and CRP both trending downward, remains afebrile Infectious diseases following-recommends 4 to 6 weeks of antibiotics-have now transitioned Unasyn to Augmentin and should have repeat chest imaging in 4 weeks Follow CBC, BMP (2) Empyema: Plan: As noted above, chest tube in place and had mist 2 protocol and then repeated mist 2 protocol starting 01/11 for ongoing pleural effusions as patient initially declined to have second chest tube placed On 01/14, patient is now agreeable to a second chest tube being placed in a second empyema seen on chest CT from 01/13 Streptococcus intermedius is growing and he was on Unasyn-has since been converted to Augmentin for 4 to 6 weeks of antibiotics Follow daily chest x-ray here and then likely CT of the chest in 4 weeks Appreciate pulmonology management Now instilling mist 2 protocol to second chest tube starting 01/14 x 3 days Follow CBC, BMP oxycodone, IV dilaudid for pain as needed but he refuses these (3) Atrial fibrillation with rapid ventricular response: Plan: Patient found to be in new-onset afib RVR with HR in the 120's on arrival and has since converted to sinus rhythm Continue to keep electrolytes replete-give IV magnesium today Started metoprolol 25 Mg p.o. twice daily-lowered parameters to hold for heart rate less than 55 Continue to monitor on telemetry Holding Eliquis until after done with mist 2 protocol Chadsvasc score is 2, echo here with low normal EF 50-55%, no other abnormalities (4) Acute renal failure: Plan: Cr of 3.98 on admission and now continues to be improving to 2.09 Continues to be making urine, Garcia catheter maintained in place Appreciate nephrology consultation-MARY likely ATN related to sepsis, pneumonia, and new onset atrial fibrillation CT abdomen/pelvis 01/04 negative for obstruction Continues to improve each day-continue to monitor BMP, urine output Nephrology has signed off (5) Elevated troponin: Plan: Initial high sen trop elevated at 57 and repeat troponin a few hours later up to 86.3, was not repeated after that Echocardiogram without wall motion abnormalities, no chest pain or ECG changes consistent with ischemia Likely due to demand ischemia with sepsis, acute renal failure, and afib RVR on arrival (6) DM II (diabetes mellitus, type II), controlled: Plan: Holding home insulin regimen of regular and Novolin R Continue Lantus and NovoLog as needed Plan Hyperlipidemia- Continue rosuvastatin, hold home aspirin while getting mist 2 protocol Depression/anxiety-continue home mirtazapine Constipation-improved on 01/13, continue senna/docusate prn DVT prophylaxis-eventually will need to start Eliquis but hold for now given mist 2 protocol, continue DALTON hose Disposition-continued stay in PCU, needs to mobilize more once he is able to with chest tubes in place Admission and Anticipated Discharge Date Admission Date: January 05, 2024 Subjective Patient had a second chest tube placed today for a second loculated empyema. He tolerated it fairly well and said he really does not have much pain more than before. It still very hard for him to sit up in bed and move around as this exacerbates the pain in his chest and back. Denies shortness of breath. He is moving his bowels and eating. Telemetry with normal sinus rhythm with rates in the 50s to 60s Physical Exam Constitutional: WD/WN, vitals as above Respiratory: normal respiratory effort; no cough Auscultation: + diminished lung sounds (At right base); no crackles, no rhonchi and no wheezes Cardiovascular: Rate/Rhythm: regular rate and regular rhythm Heart Sounds: no murmur Extremities: no edema Chest (Breasts): Chest: + abnormal inspection of chest (Chest tube with dressing in place right axilla) Gastrointestinal (Abdomen): normal bowel sounds, soft, nontender, no hepatosplenomegaly Psychiatric: A+Ox3, euthymic affect Results & Data Results & Data Vital Signs (Past 12 Hours) Vital Signs Temp Pulse Pulse Resp BP Pulse Ox O2 Del Method 01/15/24 15:22 36.7 C 63 16 153/78 H 96 Room Air 01/15/24 14:23 60 01/15/24 11:41 36.7 C 57 L 16 138/63 98 Room Air 01/15/24 07:25 36.6 C 60 20 131/58 L 97 Room Air 01/15/24 07:00 56 L Laboratory Results CBC, BMP, magnesium, CRP reviewed Diagnostic Findings Chest x-ray x 2 reviewed PG Care Time/CCT Total # of Minutes Spent Total Time Spent with Patient: Total time spent is greater than 50% in coordination of care (as documented) at patient's floor/unit and/or counseling patient: Coding Level of Care Code 51479 SUB INP/OBS CARE 2/35MIN Diagnoses Sepsis A41.9 Sepsis acute organ dysfunction status: unspecified Sepsis type: sepsis due to unspecified organism Empyema J86.9 Atrial fibrillation with rapid ventricular response I48.91 Acute renal failure N17.9 Elevated troponin R79.89 DM II (diabetes mellitus, type II), controlled E11.9 (1) Sepsis Sepsis acute organ dysfunction status: unspecified Sepsis type: sepsis due to unspecified organism Qualified Code(s): A41.9 - Sepsis, unspecified organism
[2024-01-16 06:57] LABS: Basophils % (auto) 0.3 %; Eosinophils % (auto) 2.2 %; Hematocrit (blood only) 31.3 % (42.0-52.0); Hemoglobin 10.1 g/dl (14.0-18.0); Immature Granulocytes % (auto) 0.6 %; Lymphocytes % (auto) 15.8 %; Mean Corpuscular Hemoglobin 28.3 pg (25.0-34.0); Mean Corpuscular Hgb Conc 32.3 g/dL (32.0-36.0); Mean Corpuscular Volume 87.7 fL (80.0-100.0); Mean Platelet Volume 8.7 fL (9.4-12.4); Monocytes % (auto) 8.6 %; Neutrophils # (auto) 9.95 K/uL (1.40-6.50); Neutrophils % (auto) 72.5 %; Platelet Count 367 K/uL (130-400); RDW Coefficient of Variation 14.5 % (11.5-14.5); RDW Standard Deviation 43.4 fL (36.4-46.3); Red Blood Count 3.57 M/uL (4.70-6.10); White Blood Count 13.72 K/ul (4.8-10.8)
[2024-01-16 06:58] LABS: Basophils # (auto) 0.04 K/uL (0.00-0.20); Immature Granulocytes # (auto) 0.08 K/uL (0.01-0.20); Lymphocytes # (auto) 2.17 K/uL (1.20-3.40); Monocytes # (auto) 1.18 K/uL (0.11-0.59)
[2024-01-16 07:16] LABS: BUN Creatinine Ratio 21.1 (10-20); Calcium 7.8 mg/dl (8.6-10.3); Creatinine Clr Calc Pharmacy 33.5 ml/min; Est GFR (African American) 39.7 ml/min; Est GFR (Non-African American) 34.2 ml/min; Magnesium 1.8 mg/dl (1.7-2.4)
--- NOTE | 2024-01-16 07:44 | Pharmacy Report ---
Pharmacy Glycemic Short Note 2 - Date of Service January 16, 2024 - Glycemic Short BSG Results (Last 24 hours): 01/15/24 01/15/24 01/15/24 11:38 16:27 19:45 Glucose POC Glucose 103 H 190 H 200 H 01/16/24 01/16/24 06:26 07:25 Glucose 142 H POC Glucose 132 H OUTPATIENT ANTIDIABETIC REGIMEN: * Novolin R 15 units SQ daily, Novolin R SSI * HbA1c 8.1% 01/06/24 ASSESSMENT: 01/14: * Blood sugars increased throughout the day yesterday * Received 25 units of insulin (15 units of basal and 10 units of prandial/correctional bolus) * Fasting blood sugar remains reasonable - will continue current basal * Tighten carb ratio to improve with elevated blood sugars throughout the day 01/12: * Blood sugars above goal range intermittently yesterday, ranging 127-186 mg/dL * Received 21 units of insulin (~50/50 basal/bolus split) * Fasting blood sugar of 203 mg/dL today - will increase basal * Remains on Unasyn 01/10: * Blood sugar above goal yesterday evening and this morning, but patient refused AM Lantus - therefore no change in orders at this time. * CR tightened yesterday but unable to evaluate effects, as basal was refused, so no changes in NovoLog either at this time. 01/08: * BSGs have been stable for the past 48 hours. [phone] mg/dL yesterday. * SCr appears to have peaked and is now downtrending- 3.43 today * Fasting within goal range, trending down with 10 units of lantus qAM- continue * Continue current novolog parameters 01/04 * 63 year old admitted with hyperglycemia, poor oral intake, MARY, concerns for sepsis/dehydration, metabolic acidosis, afib. Concerns for pneumonia noted on CT. Scr up to 3.98 mg/dL - per notes, baseline Scr closer to 0.95 per records 2021. Elevated anion gap on admission, provider notes report likely related to acute renal failure. Provider repeating labs again this afternoon, still pending. * DM2 diabetic - pharmacy consulted for glycemic control. Patient NPO - reasonable to start novolog for now and see how BSGs trend. Unknown A1c - will order for tomorrow AM. Given 5 units SQ insulin at lunch time, will continue with novolog Q6 hour checks. PLAN FOR INPATIENT GLYCEMIC CONTROL: * Hold outpatient insulin * Basal insulin - continue * Lantus - 15 unit SC qAM * Bolus insulin - tighten carb ratio * NovoLog per scale ACHS or Q6hrs while NPO * Goal Range: Low 110 mg/dL - High 140 mg/dL * Correction Factor: 25 mg/dL/unit * Nutritional / Prandial insulin per carb ratio of 1 unit per 8 grams CHO consumed
--- NOTE | 2024-01-16 08:06 | XRay Report ---
XR chest 1V portable CLINICAL HISTORY: Chest tube ? MIST 2 protocol TECHNIQUE: Single frontal radiograph of the chest was obtained. Comparison: Comparison is made to chest radiograph 01/15/2024 FINDINGS: Interval stability of chest tubes. The cardiomediastinal silhouette is normal. Right lower lung airsp chencho opacities compatible with atelectasis is again seen. No evidence of pleural effusion or pneumotho rax. IMPRESSION: Stable chest tubes without pneumothorax. ACT 112: Negative or not required by law. Electronically signed by: Andrea Guillermo M.D. 01/16/2024 8:04 AM
--- NOTE | 2024-01-16 08:44 | Procedure Note ---
Procedure Note Date of Service January 16, 2024 Note Procedure: Removal of 14 Nauruan inferior pigtail catheter in the pleural space Box Sealing Machine Catcher Dr. Jade Consent risk and benefits were discussed with the patient. He agreed. Anesthesia none Procedure: The dressing for the 14 Nauruan pigtail locking skater catheter was taken down. The locking mechanism was fully released. On full expiration the catheter was rapidly pulled. Minimal resistance was encountered. An occlusive dressing was applied. The patient tolerated the procedure well. Will continue to complete mist 2 protocol with the pigtail catheter placed yesterday. Estimated blood loss none Patient tolerated the procedure well without obvious complication Coding CPT Codes Pulmonary/Thoracic - Pulmonary and Thoracic: 82766 Remove lung catheter ([id number]) [facility] [place] Codes (Charges) Pulmonary/Thoracic Procedure 1: Pulmonary and Thoracic: 09687 Remove lung catheter
--- NOTE | 2024-01-16 08:46 | Pulmonology Progress Note ---
Date of Service January 16, 2024 Assessment & Plan (1) Empyema: (2) Acute pneumonia: Plan Impression: 63 y/o male with PMH of DM2 and adjustment disorder with empyema and pneumonia. CT scan showed a loculated posterior fluid collection with split pleural sign concerning for persistent empyema. A second pigtail catheter was placed yesterday Recommendations: 1. Empyema: Pigtail #1 has minimal drainage and will be removed today. Continue mist 2 protocol with pigtail #2 and daily chest x-rays. 2. Pneumonia: Continue oral Augmentin. Will need 6 weeks of therapy. Sensitivities not performed on strep intermedius isolate. Will continue to follow. Please contact us with questions or concerns Admission and Anticipated Discharge Date Admission Date: January 05, 2024 Subjective Patient seen and examined. EMR reviewed. Patient is doing well clinically. He suffered no adverse effects from placement of the second chest tube yesterday. He is not experiencing any chest pain or palpitations. He is having some minor discomfort but overall is doing well clinically. Review of Systems 2 Review of Systems: All systems reviewed & are unremarkable except as noted in Subjective Physical Exam 2 Constitutional: + thin and + disheveled; no acute distre ss Neck: trachea midline, no thyromegaly Respiratory: no respiratory distress, no labored breathing, no cough and not tachypneic Auscultation: + diminished lung sounds Cardiovascular: RRR, no murmur, no edema Gastrointestinal (Abdomen): normal bowel sounds, soft, nontender, no hepatosplenomegaly Musculoskeletal: Extremities: extremities normal to inspection Skin: no rashes, warm and dry Lymphatic: no cervical lymphadenopathy Results & Data Results & Data Vital Signs (Past 12 Hours) Vital Signs Temp Pulse Pulse Resp BP Pulse Ox O2 Del Method 01/16/24 07:27 61 01/16/24 07:22 36.8 C 64 18 137/69 95 Room Air 01/16/24 02:57 36.5 C 69 18 156/68 H 95 Room Air 01/15/24 22:48 36.9 C 70 18 136/64 95 Room Air 01/15/24 21:35 68 01/15/24 21:00 Room Air Chest tube 1 output 30 cc Chest tube 2 output 280 cc Laboratory Results 01/16/24 06:26 01/16/24 06:26 Diagnostic Findings Chest x-ray today independently reviewed and demonstrated improved aeration the right lung base PG Care Time/CCT Total # of Minutes Spent Total Time Spent with Patient: Total time spent is greater than 50% in coordination of care (as documented) at patient's floor/unit and/or counseling patient: Coding Level of Care Code 20990 SUB INP/OBS CARE 2/35MIN Diagnoses Empyema J86.9 Acute pneumonia J18.9
[2024-01-16] MEDS: MAGNESIUM SULFATE / D5W 1 GM/100 ML BAG IV ONE (11:09)
--- NOTE | 2024-01-16 16:21 | Hospitalist Progress Note ---
Date of Service January 16, 2024 Assessment & Plan (1) Sepsis: Plan: Presented from [facility] due to multiple days of poor oral intake, hyperglycemia, and generalized weakness Found to be in new onset atrial fibrillation with HR in the 120's, with WBC of 20, with right lower lobe pneumonia on CXR and eventually found to have empyema With lactic acidosis with lactate of 10 and procalcitonin elevated at 50 Patient with chest tubes placed in 2 different loculated empyemas, undergoing MIST 2 protocol, Pleural effusion growing Streptococcus intermedius Sepsis has now resolved, leukocytosis improving but not resolved, procalcitonin and CRP both trending downward, remains afebrile Infectious diseases following-recommends 4 to 6 weeks of antibiotics-have now transitioned Unasyn to Augmentin and should have repeat chest imaging in 4 weeks Follow CBC, BMP (2) Empyema: Plan: As noted above, chest tube in place and had mist 2 protocol and then repeated mist 2 protocol starting 01/11 for ongoing pleural effusions as patient initially declined to have second chest tube placed On 01/14, patient had a second chest tube being placed in a second empyema seen on chest CT from 01/13 Streptococcus intermedius is growing and he was on Unasyn-has since been converted to Augmentin for 4 to 6 weeks of antibiotics Follow daily chest x-ray here-improving Will need CT of the chest in 4 weeks Appreciate pulmonology management Now instilling mist 2 protocol to second chest tube starting 01/14 x 3 days Chest tube #1 removed Follow CBC, BMP oxycodone, IV dilaudid and tylenol for pain as needed but he refuses these (3) Atrial fibrillation with rapid ventricular response: Plan: Patient found to be in new-onset afib RVR with HR in the 120's on arrival and has since converted to sinus rhythm Continue to keep electrolytes replete-give IV magnesium again today Started metoprolol 25 Mg p.o. twice daily-lowered parameters to hold for heart rate less than 55 Continue to monitor on telemetry Holding Eliquis until after done with mist 2 protocol, however unclear if [facility] has Eliquis-can start Coumadin if needed Chadsvasc score is 2, echo here with low normal EF 50-55%, no other abnormalities (4) Acute renal failure: Plan: Cr of 3.98 on admission and now continues to be improving to 1.99 Continues to be making urine, Garcia catheter maintained in place-will remove in the AM Appreciate nephrology consultation-MARY likely ATN related to sepsis, pneumonia, and new onset atrial fibrillation CT abdomen/pelvis 01/04 negative for obstruction Continues to improve each day-continue to monitor BMP, urine output Nephrology has signed off (5) Elevated troponin: Plan: Initial high sen trop elevated at 57 and repeat troponin a few hours later up to 86.3, was not repeated after that Echocardiogram without wall motion abnormalities, no chest pain or ECG changes consistent with ischemia Likely due to demand ischemia with sepsis, acute renal failure, and afib RVR on arrival (6) DM II (diabetes mellitus, type II), controlled: Plan: Holding home insulin regimen of regular and Novolin R Continue Lantus and NovoLog as needed Plan Hyperlipidemia- Continue rosuvastatin, hold home aspirin while getting mist 2 protocol Depression/anxiety-continue home mirtazapine Constipation-improved on 01/13, continue senna/docusate prn DVT prophylaxis-eventually will need to start Eliquis but hold for now given mist 2 protocol, continue DALTON hose Disposition-continued stay in PCU, needs to mobilize more once he is able to with chest tube in place Admission and Anticipated Discharge Date Admission Date: January 05, 2024 Subjective Pt feeling fairly well today. Had one chest tube removed, has less pain. Is eating and drinking. No other concerns Tele with NSR 50-60s Physical Exam Constitutional: WD/WN, vitals as above Respiratory: normal respiratory effort; no cough Auscultation: + diminished lung sounds (At right base); no crackles, no rhonchi and no wheezes Cardiovascular: Rate/Rhythm: regular rate and regular rhythm Heart Sounds: no murmur Extremities: no edema Chest (Breasts): Chest: + abnormal inspection of chest (Chest tube with dressing in place right axilla) Gastrointestinal (Abdomen): normal bowel sounds, soft, nontender, no hepatosplenomegaly Psychiatric: A+Ox3, euthymic affect Results & Data Results & Data Vital Signs (Past 12 Hours) Vital Signs Temp Pulse Pulse Resp BP Pulse Ox O2 Del Method 01/16/24 15:47 36.6 C 60 18 135/65 96 Room Air 01/16/24 12:05 36.7 C 61 18 132/69 95 Room Air 01/16/24 08:00 Room Air 01/16/24 07:27 61 01/16/24 07:22 36.8 C 64 18 137/69 95 Room Air Laboratory Results CBC, BMP, magnesium reviewed PG Care Time/CCT Total # of Minutes Spent Total Time Spent with Patient: Total time spent is greater than 50% in coordination of care (as documented) at patient's floor/unit and/or counseling patient: Coding Level of Care Code 09101 SUB INP/OBS CARE 2/35MIN Diagnoses Sepsis A41.9 Sepsis acute organ dysfunction status: unspecified Sepsis type: sepsis due to unspecified organism Empyema J86.9 Atrial fibrillation with rapid ventricular response I48.91 Acute renal failure N17.9 Elevated troponin R79.89 DM II (diabetes mellitus, type II), controlled E11.9 (1) Sepsis Sepsis acute organ dysfunction status: unspecified Sepsis type: sepsis due to unspecified organism Qualified Code(s): A41.9 - Sepsis, unspecified organism
[2024-01-17 05:15] LABS: Basophils # (auto) 0.05 K/uL (0.00-0.20); Basophils % (auto) 0.4 %; Eosinophils # (auto) 0.21 K/uL (0.00-0.50); Eosinophils % (auto) 1.6 %; Hematocrit (blood only) 27.7 % (42.0-52.0); Immature Granulocytes # (auto) 0.07 K/uL (0.01-0.20); Immature Granulocytes % (auto) 0.5 %; Lymphocytes # (auto) 2.34 K/uL (1.20-3.40); Lymphocytes % (auto) 17.9 %; Mean Corpuscular Hemoglobin 28.7 pg (25.0-34.0); Mean Corpuscular Hgb Conc 32.5 g/dL (32.0-36.0); Mean Corpuscular Volume 88.2 fL (80.0-100.0); Mean Platelet Volume 8.7 fL (9.4-12.4); Monocytes # (auto) 1.11 K/uL (0.11-0.59); Monocytes % (auto) 8.5 %; Neutrophils # (auto) 9.27 K/uL (1.40-6.50); Neutrophils % (auto) 71.1 %; Platelet Count 341 K/uL (130-400); RDW Coefficient of Variation 14.6 % (11.5-14.5); RDW Standard Deviation 44.4 fL (36.4-46.3); Red Blood Count 3.14 M/uL (4.70-6.10); White Blood Count 13.05 K/ul (4.8-10.8)
[2024-01-17 05:28] LABS: BUN Creatinine Ratio 19.4 (10-20); Calcium 7.8 mg/dl (8.6-10.3); Creatinine Clr Calc Pharmacy 30.9 ml/min; Est GFR (African American) 35.9 ml/min; Magnesium 1.9 mg/dl (1.7-2.4); Potassium 3.7 mmol/L (3.5-5.1)
--- NOTE | 2024-01-17 08:23 | Pulmonology Progress Note ---
Date of Service January 17, 2024 Assessment & Plan (1) Empyema: (2) Acute pneumonia: Plan Impression: 63 y/o male with PMH of DM2 and adjustment disorder with empyema and pneumonia. CT scan showed a loculated posterior fluid collection with split pleural sign concerning for persistent empyema. A second pigtail catheter was placed 01/15/2024. The first tube has been removed Recommendations: 1. Empyema: Clinically and radiographically improved. Continue mist 2 protocol. Drainage is slightly bloody however would continue intrapleural fibrinolysis. Once drainage is below 200 cc per 24 hours the tube can be discontinued. 2. Pneumonia: Continue oral Augmentin. Will need 6 weeks of therapy. Sensitivities not performed on strep intermedius isolate. Will continue to follow. Please contact us with questions or concerns Admission and Anticipated Discharge Date Admission Date: January 05, 2024 Subjective Seen and examined. Patient reports that he is experiencing some mild diarrhea. His chest pain is reasonably well-controlled. No other acute changes Review of Systems 2 Review of Systems: All systems reviewed & are unremarkable except as noted in Subjective Physical Exam 2 Constitutional: + thin and + disheveled; no acute distre ss Neck: trachea midline, no thyromegaly Respiratory: no respiratory distress, no labored breathing, no cough and not tachypneic Auscultation: + diminished lung sounds Cardiovascular: RRR, no murmur, no edema Gastrointestinal (Abdomen): normal bowel sounds, soft, nontender, no hepatosplenomegaly Musculoskeletal: Extremities: extremities normal to inspection Skin: no rashes, warm and dry Lymphatic: no cervical lymphadenopathy Results & Data Results & Data Vital Signs (Past 12 Hours) Vital Signs Temp Pulse Pulse Resp BP Pulse Ox O2 Del Method 01/17/24 07:48 36.7 C 68 18 128/68 97 Room Air 01/17/24 03:15 37.1 C 61 17 139/63 96 Room Air 01/16/24 23:15 36.6 C 64 18 139/65 96 Room Air 01/16/24 21:56 61 chest tube output 280 cc last 24 hours Laboratory Results 01/17/24 04:46 01/17/24 04:46 Diagnostic Findings Chest x-ray today was independently reviewed. Tube appears to be in good position. Hazy opacities at the right lung base improved. PG Care Time/CCT Total # of Minutes Spent Total Time Spent with Patient: Total time spent is greater than 50% in coordination of care (as documented) at patient's floor/unit and/or counseling patient: Coding Level of Care Code 48366 SUB INP/OBS CARE 235MIN Diagnoses Empyema J86.9 Acute pneumonia J18.9
--- NOTE | 2024-01-17 08:29 | XRay Report ---
XR chest 1V portable CLINICAL HISTORY: Chest tube ? MIST 2 protocol TECHNIQUE: Single frontal radiograph of the chest was obtained. Comparison: Comparison is made to chest radiograph 01/16/2024 FINDINGS: 1 of 2 chest tubes has been removed. The cardiomediastinal silhouette is normal. Atelectatic changes in the right lower lung are unchanged. No evidence of pleural effusion or pneumothorax. IMPRESSION: Interval removal of one chest tube. No evidence of pneumothorax. ACT 112: Negative or not required by law. Electronically signed by: Andrea Guillermo M.D. 01/17/2024 8:27 AM
--- NOTE | 2024-01-17 19:01 | Hospitalist Progress Note ---
Date of Service January 17, 2024 Assessment & Plan (1) Sepsis: Plan: Presented from [facility] due to multiple days of poor oral intake, hyperglycemia, and generalized weakness Found to be in new onset atrial fibrillation with HR in the 120's, with WBC of 20, with right lower lobe pneumonia on CXR and eventually found to have empyema With lactic acidosis with lactate of 10 and procalcitonin elevated at 50 Patient with chest tubes placed in 2 different loculated empyemas, undergoing MIST 2 protocol, Pleural effusion growing Streptococcus intermedius Sepsis has now resolved, leukocytosis improving but not resolved, procalcitonin and CRP both trending downward, remains afebrile Infectious diseases following-recommends 4 to 6 weeks of antibiotics-have now transitioned Unasyn to Augmentin and should have repeat chest imaging in 4 weeks Follow CBC, BMP (2) Empyema: Plan: As noted above, chest tube in place and had mist 2 protocol and then repeated mist 2 protocol starting 01/11 for ongoing pleural effusions as patient initially declined to have second chest tube placed On 01/14, patient had a second chest tube being placed in a second empyema seen on chest CT from 01/13 Streptococcus intermedius is growing and he was on Unasyn-has since been converted to Augmentin for 4 to 6 weeks of antibiotics Follow daily chest x-ray here-improving Will need CT of the chest in 4 weeks Appreciate pulmonology management Now instilling mist 2 protocol to second chest tube starting 01/14 x 3 days-last day on 01/17 Chest tube #1 removed and will remove chest tube #2 once drainage down to less than 200 mL Follow CBC, BMP oxycodone, IV dilaudid and tylenol for pain as needed but he refuses these (3) Atrial fibrillation with rapid ventricular response: Plan: Patient found to be in new-onset afib RVR with HR in the 120's on arrival and has since converted to sinus rhythm Continue to keep electrolytes replete-give IV magnesium again today Started metoprolol 25 Mg p.o. twice daily-lowered parameters to hold for heart rate less than 55 Continue to monitor on telemetry Holding Eliquis until after done with mist 2 protocol, however unclear if skilled nursing has Eliquis-can start Coumadin if needed Chadsvasc score is 2, echo here with low normal EF 50-55%, no other abnormalities (4) Acute renal failure: Plan: Cr of 3.98 on admission and now continues to be improving to 1.99 Continues to be making urine, Garcia catheter maintained in place-removed today Appreciate nephrology consultation-MARY likely ATN related to sepsis, pneumonia, and new onset atrial fibrillation CT abdomen/pelvis 01/04 negative for obstruction Continues to improve each day-continue to monitor BMP, urine output Nephrology has signed off (5) Elevated troponin: Plan: Initial high sen trop elevated at 57 and repeat troponin a few hours later up to 86.3, was not repeated after that Echocardiogram without wall motion abnormalities, no chest pain or ECG changes consistent with ischemia Likely due to demand ischemia with sepsis, acute renal failure, and afib RVR on arrival (6) DM II (diabetes mellitus, type II), controlled: Plan: Holding home insulin regimen of regular and Novolin R Continue Lantus and NovoLog as needed Plan Hyperlipidemia- Continue rosuvastatin, hold home aspirin while getting mist 2 protocol Depression/anxiety-continue home mirtazapine Constipation-improved on 01/13, continue senna/docusate prn DVT prophylaxis-eventually will need to start Eliquis but hold for now given m ist 2 protocol, continue DALTON hose Disposition-continued stay in PCU, needs to mobilize more once he is able to with chest tube in place Admission and Anticipated Discharge Date Admission Date: January 05, 2024 Subjective Patient having pain in the back from the chest tube. Otherwise moving bowels. Feels tired. Telemetry with normal sinus rhythm and normal rates Physical Exam Constitutional: WD/WN, vitals as above Respiratory: normal respiratory effort; no cough Auscultation: + diminished lung sounds (At right base); no crackles, no rhonchi and no wheezes Cardiovascular: Rate/Rhythm: regular rate and regular rhythm Heart Sounds: no murmur Extremities: no edema Chest (Breasts): Chest: + abnormal inspection of chest (Chest tube with dressing in place right axilla) Gastrointestinal (Abdomen): normal bowel sounds, soft, nontender, no hepatosplenomegaly Psychiatric: A+Ox3, euthymic affect Results & Data Results & Data Vital Signs (Past 12 Hours) Vital Signs Temp Pulse Resp BP Pulse Ox O2 Del Method 01/17/24 17:21 Room Air 01/17/24 16:00 36.7 C 60 18 145/67 H 97 Room Air 07/06/24 12:01 36.8 C 50 L 18 131/80 89 L Room Air 01/17/24 07:48 36.7 C 68 18 128/68 97 Room Air Laboratory Results CBC, BMP, magnesium reviewed Diagnostic Findings Chest x-ray reviewed PG Care Time/CCT Total # of Minutes Spent Total Time Spent with Patient: Total time spent is greater than 50% in coordination of care (as documented) at patient's floor/unit and/or counseling patient: Coding Level of Care Code 00139 SUB INP/OBS CARE 2/35MIN Diagnoses Sepsis A41.9 Sepsis acute organ dysfunction status: unspecified Sepsis type: sepsis due to unspecified organism Empyema J86.9 Atrial fibrillation with rapid ventricular response I48.91 Acute renal failure N17.9 Elevated troponin R79.89 DM II (diabetes mellitus, type II), controlled E11.9 (1) Sepsis Sepsis acute organ dysfunction status: unspecified Sepsis type: sepsis due to unspecified organism Qualified Code(s): A41.9 - Sepsis, unspecified organism
--- NOTE | 2024-01-18 07:20 | Procedure Note ---
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 The locking mechanism was fully released. On full expiration the catheter was rapidly removed. An occlusive dressing was applied. Patient tolerated the procedure well Coding CPT Codes Pulmonary/Thoracic - Pulmonary and Thoracic: 12981 Remove lung catheter ([id number]) [facility] [place] Procedure Codes (Charges) Pulmonary/Thoracic Procedure 1: Pulmonary and Thoracic: 69181 Remove lung catheter
--- NOTE | 2024-01-18 07:22 | Pulmonology Progress Note ---
Date of Service January 18, 2024 Assessment & Plan (1) Empyema: (2) Acute pneumonia: Plan Impression: 63 y/o male with PMH of DM2 and adjustment disorder with empyema and pneumonia. CT scan showed a loculated posterior fluid collection with split pleural sign concerning for persistent empyema. A second pigtail catheter was placed 01/15/2024. The first tube has been removed. The patient has completed Ms. to the second tube with output over the last 24 hours less than [address] scan showing reexpansion of the lung. Recommendations: 1. Empyema: Clinically and radiographically improved. Completed mist 2 protocol. Drainage less than 200 mL and the tube will be discontinued. 2. Pneumonia: Continue oral Augmentin. Will need 6 weeks of therapy. Sensitivities not performed on strep intermedius isolate. Patient can be dismissed from a pulmonary perspective. Discussed with hospitalist. Will sign off. Feel free to contact us with questions or concerns Admission and Anticipated Discharge Date Admission Date: January 05, 2024 Subjective Patient seen and examined. EMR reviewed. The patient is awake alert and conversant. He is not having any pain from the drain. The output is significantly decreased down to 100 cc per last 24 hours. Chest x-ray appears stable Review of Systems 2 Review of Systems: All systems reviewed & are unremarkable except as noted in Subjective Physical Exam 2 Constitutional: + thin and + disheveled; no acute distre ss Neck: trachea midline, no thyromegaly Respiratory: no respiratory distress, no labored breathing, no cough and not tachypneic Auscultation: + diminished lung sounds Cardiovascular: RRR, no murmur, no edema Gastrointestinal (Abdomen): normal bowel sounds, soft, nontender, no hepatosplenomegaly Musculoskeletal: Extremities: extremities normal to inspection Skin: no rashes, warm and dry Lymphatic: no cervical lymphadenopathy Results & Data Results & Data Vital Signs (Past 12 Hours) Vital Signs Temp Pulse Pulse Resp BP Pulse Ox O2 Del Method 01/18/24 03:18 37.2 C 73 18 152/68 H 93 Room Air 01/17/24 21:58 72 01/17/24 20:15 Room Air Chest tube output last 24 hours less than 100 cc Laboratory Results 01/17/24 04:46 01/17/24 04:46 Diagnostic Findings Chest x-ray from today was independently reviewed. The collateral catheter is in good position. No significant reaccumulation of pleural fluid PG Care Time/CCT Total # of Minutes Spent Total Time Spent with Patient: Total time spent is greater than 50% in coordination of care (as documented) at patient's floor/unit and/or counseling patient: Coding Level of Care Code 41432 SUB INP/OBS CARE 2/35MIN Diagnoses Empyema J86.9 Acute pneumonia J18.9
--- NOTE | 2024-01-18 08:36 | XRay Report ---
XR chest 1V portable CLINICAL HISTORY: Chest tube ? MIST 2 protocol TECHNIQUE: Single frontal radiograph of the chest was obtained. Comparison: Comparison is made to chest radiograph 01/17/2024 FINDINGS: Right chest tube is unchanged. The cardiomediastinal silhouette is normal. Right lower lung airspace opacities are unchanged. No evidence of pleural effusion or pneumothorax. IMPRESSION: Stable right chest tube without pneumothorax. Atelectasis is again seen in the right lower lung. ACT 112: Negative or not required by law. Electronically signed by: Andrea Guillermo M.D. 01/18/2024 8:35 AM
--- NOTE | 2024-01-18 09:02 | Pharmacy Report ---
Pharmacy Glycemic Short Note 2 - Date of Service January 18, 2024 - Glycemic Short BSG Results (Last 24 hours): 01/17/24 01/17/24 01/17/24 12:04 15:58 20:02 POC Glucose 125 H 86 100 H 01/18/24 07:48 POC Glucose 92 OUTPATIENT ANTIDIABETIC REGIMEN: * Novolin R 15 units SQ daily, Novolin R SSI * HbA1c 8.1% 01/06/24 ASSESSMENT: 01/18/24: * Overall lower trend in blood sugars, ranging 86-125 mg/dL yesterday w/ fasting of 92 mg/dL this morning * Received 21 units of insulin (15 units of basal and 6 units of bolus) * Will decrease basal by 20% today, slightly loosen carb ratio 01/15: * Blood sugars increased throughout the day yesterday * Received 25 units of insulin (15 units of basal and 10 units of prandial/correctional bolus) * Fasting blood sugar remains reasonable - will continue current basal * Tighten carb ratio to improve with elevated blood sugars throughout the day 01/12: * Blood sugars above goal range intermittently yesterday, ranging 127-186 mg/dL * Received 21 units of insulin (~50/50 basal/bolus split) * Fasting blood sugar of 203 mg/dL today - will increase basal * Remains on Unasyn Background: * 63 year old admitted with hyperglycemia, poor oral intake, MARY, concerns for sepsis/dehydration, metabolic acidosis, afib. Concerns for pneumonia noted on CT. Scr up to 3.98 mg/dL - per notes, baseline Scr closer to 0.95 per records 2021. Elevated anion gap on admission, provider notes report likely related to acute renal failure. Provider repeating labs again this afternoon, still pending. * DM2 diabetic - pharmacy consulted for glycemic control. Patient NPO - reasonable to start novolog for now and see how BSGs trend. Unknown A1c - will order for tomorrow AM. Given 5 units SQ insulin at lunch time, will continue with novolog Q6 hour checks. PLAN FOR INPATIENT GLYCEMIC CONTROL: * Hold outpatient insulin * Basal insulin - decrease 20% * Lantus - 12 unit SC qAM * Bolus insulin - loosen carb ratio * NovoLog per scale ACHS or Q6hrs while NPO * Goal Range: Low 110 mg/dL - High 140 mg/dL * Correction Factor: 25 mg/dL/unit * Nutritional / Prandial insulin per carb ratio of 1 unit per 9 grams CHO consumed
[2024-01-18] MEDS: LANTUS PER UNIT CHARGE SC SCH (09:05)
[2024-01-18 10:00] LABS: BUN Creatinine Ratio 22.3 (10-20); Calcium 8.4 mg/dl (8.6-10.3); Creatinine Clr Calc Pharmacy 34.8 ml/min; Est GFR (African American) 41.2 ml/min; Est GFR (Non-African American) 35.5 ml/min; Potassium 3.5 mmol/L (3.5-5.1)
[2024-01-18 10:04] LABS: Basophils # (auto) 0.06 K/uL (0.00-0.20); Basophils % (auto) 0.5 %; Eosinophils # (auto) 0.22 K/uL (0.00-0.50); Eosinophils % (auto) 1.8 %; Hematocrit (blood only) 28.9 % (42.0-52.0); Hemoglobin 9.2 g/dl (14.0-18.0); Immature Granulocytes # (auto) 0.05 K/uL (0.01-0.20); Immature Granulocytes % (auto) 0.4 %; Lymphocytes # (auto) 1.64 K/uL (1.20-3.40); Lymphocytes % (auto) 13.8 %; Mean Corpuscular Hgb Conc 31.8 g/dL (32.0-36.0); Mean Corpuscular Volume 88.1 fL (80.0-100.0); Mean Platelet Volume 8.9 fL (9.4-12.4); Monocytes # (auto) 0.92 K/uL (0.11-0.59); Monocytes % (auto) 7.7 %; Neutrophils # (auto) 9.03 K/uL (1.40-6.50); Neutrophils % (auto) 75.8 %; Platelet Count 310 K/uL (130-400); RDW Standard Deviation 45.6 fL (36.4-46.3); Red Blood Count 3.28 M/uL (4.70-6.10); White Blood Count 11.92 K/ul (4.8-10.8)
--- NOTE | 2024-01-18 10:40 | Hospitalist Progress Note ---
Date of Service January 18, 2024 Assessment & Plan (1) Sepsis: Plan: Presented from [facility] due to multiple days of poor oral intake, hyperglycemia, and generalized weakness Found to be in new onset atrial fibrillation with HR in the 120's, with WBC of 20, with right lower lobe pneumonia on CXR and with empyema With lactic acidosis with lactate of 10 and procalcitonin elevated at 50 Patient with chest tubes placed in 2 different loculated empyemas, underwent MIS T 2 protocols and had improvement, chest tubes now removed Pleural effusion fluid culture grew Streptococcus intermedius Sepsis has now resolved, leukocytosis improving but not resolved, procalcitonin and CRP both trending downward, remains afebrile Infectious disease following-recommends 4 to 6 weeks of antibiotics. PULM recommends 6 weeks. Have now transitioned Unasyn to Augmentin and should have repeat chest imaging in 4 weeks-last day of treatment 02/16/24 Follow CBC, CMP once weekly while on antibiotics (2) Empyema: Plan: As above, continue antibiotics, s/p chest tubes x 2 and MIST 2 protocol. CXRs improving Appreciate pulmonology management Chest tubes now removed Needs repeat chest CT in 4 weeks (3) Atrial fibrillation with rapid ventricular response: Plan: Patient found to be in new-onset afib RVR with HR in the 120's on arrival and spontaneously converted to sinus rhythm shortly after admission Keep electrolytes replete-give po KCl today Started metoprolol 25 Mg p.o. twice daily-lowered parameters to hold for heart rate less than 55 Continue to monitor on telemetry Held Eliquis until after done with mist 2 protocol, had bloody drainge from chest tubes--> confirmed with [facility] that Eliquis is available there--> start Eliquis in AM on 01/18 Discussed diagnosis and management with patient-he was unaware of this as a diagnosis Chadsvasc score is 2, echo here with low normal EF 50-55%, no other abnormalities (4) Acute renal failure: Plan: Cr of 3.98 on admission and now continues to be improving to [address] stable CT abdomen/pelvis 01/04 negative for obstruction Continues to be making urine, Cali catheter now removed and voiding completely Appreciate nephrology consultation-MARY likely ATN related to sepsis, pneumonia, and new onset atrial fibrillation baseline rrts from 2021 0.95 This may be his new baseline renal function-does have long h/o DM FOllow BMP as outpt Nephrology has signed off (5) Elevated troponin: Plan: Initial high sen trop elevated at 57 and repeat troponin a few hours later up to 86.3, was not repeated after that Echocardiogram without wall motion abnormalities, no chest pain or ECG changes consistent with ischemia Likely due to demand ischemia with sepsis, acute renal failure, and afib RVR on arrival (6) DM II (diabetes mellitus, type II), controlled: Plan: Holding home insulin regimen of regular and Novolin R Continue Lantus and NovoLog as needed, pharmacy managing Plan Hyperlipidemia- Continue rosuvastatin, can now resume home aspirin now that mist 2 protocol complete Depression/anxiety-continue home mirtazapine Constipation-improved on 01/13, continue senna/docusate prn DVT prophylaxis- start Eliquis, continue DALTON hose Disposition-continued stay in PCU,did not feel ready to be discharged yet on 01/17--> I discussed all his care with the PA at the [facility] on 01/17 and she is aware he will be discharged on Thursday 01/18 assuming he is continuing to improve. She does not need a repeat phone call back on Friday unless there is anything new to report. Admission and Anticipated Discharge Date Admission Date: January 05, 2024 Anticipated date of discharge: 01/19/24 Subjective Pt feels very tired, not sleeping well because of chest tubes and interruptions, etc. Had chest tube removed this AM, feels less pain now. Moving bowels, cali removed yesterday and is voiding. Discussed care with PULM. 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 at [facility] Tele with NSR normal rates Physical Exam Constitutional: WD/WN, vitals as above Respiratory: normal respiratory effort; no cough Auscultation: + diminished lung sounds (At right base); no crackles, no rhonchi and no wheezes Cardiovascular: Rate/Rhythm: regular rate and regular rhythm Heart Sounds: no murmur Extremities: no edema Chest (Breasts): Chest: + abnormal inspection of chest (Chest tube removed, dressing in place with blood soaked bandage) Gastrointestinal (Abdomen): normal bowel sounds, soft, nontender, no hepatosplenomegaly Psychiatric: A+Ox3, euthymic affect Results & Data Results & Data Vital Signs (Past 12 Hours) Vital Signs Temp Pulse Resp BP Pulse Ox O2 Del Method 01/18/24 07:48 36.7 C 67 18 148/69 H 94 Room Air 01/18/24 03:18 37.2 C 73 18 152/68 H 93 Room Air Laboratory Results CBC, BMP reviewed PG Care Time/CCT Total # of Minutes Spent Total Time Spent with Patient: Total time spent is greater than 50% in coordination of care (as documented) at patient's floor/unit and/or counseling patient: Coding Level of Care Code 31268 SUB INP/OBS CARE 2/35MIN Diagnoses Sepsis A41.9 Sepsis acute organ dysfunction status: unspecified Sepsis type: sepsis due to unspecified organism Empyema J86.9 Atrial fibrillation with rapid ventricular response I48.91 Acute renal failure N17.9 Elevated troponin R79.89 DM II (diabetes mellitus, type II), controlled E11.9 (1) Sepsis Sepsis acute organ dysfunction status: unspecified Sepsis type: sepsis due to unspecified organism Qualified Code(s): A41.9 - Sepsis, unspecified organism
[2024-01-18] MEDS: POTASSIUM CHLORIDE CRTAB 20 MEQ TABCR PO STA (13:13)
[2024-01-19 06:25] LABS: Basophils # (auto) 0.07 K/uL (0.00-0.20); Basophils % (auto) 0.8 %; Eosinophils # (auto) 0.35 K/uL (0.00-0.50); Eosinophils % (auto) 4.1 %; Hematocrit (blood only) 27.9 % (42.0-52.0); Immature Granulocytes # (auto) 0.04 K/uL (0.01-0.20); Immature Granulocytes % (auto) 0.5 %; Lymphocytes # (auto) 2.07 K/uL (1.20-3.40); Lymphocytes % (auto) 24.5 %; Mean Corpuscular Hemoglobin 28.7 pg (25.0-34.0); Mean Corpuscular Hgb Conc 32.3 g/dL (32.0-36.0); Mean Corpuscular Volume 88.9 fL (80.0-100.0); Mean Platelet Volume 9.2 fL (9.4-12.4); Monocytes # (auto) 0.86 K/uL (0.11-0.59); Monocytes % (auto) 10.2 %; Neutrophils # (auto) 5.07 K/uL (1.40-6.50); Neutrophils % (auto) 59.9 %; Platelet Count 289 K/uL (130-400); RDW Coefficient of Variation 14.8 % (11.5-14.5); RDW Standard Deviation 46.4 fL (36.4-46.3); Red Blood Count 3.14 M/uL (4.70-6.10); White Blood Count 8.46 K/ul (4.8-10.8)
[2024-01-19 06:44] LABS: Albumin Level 2.4 gm/dl (3.4-5.0); BUN Creatinine Ratio 23.6 (10-20); Bilirubin Direct 0.2 mg/dl (0-0.2); Bilirubin,Total 0.5 mg/dl (0.2-1.0); Calcium 8.2 mg/dl (8.6-10.3); Creatinine Clr Calc Pharmacy 37.7 ml/min; Est GFR (African American) 45.4 ml/min; Est GFR (Non-African American) 39.2 ml/min; Magnesium 1.7 mg/dl (1.7-2.4); Potassium 3.6 mmol/L (3.5-5.1); Total Protein 6.5 gm/dl (6.0-8.3)
--- NOTE | 2024-01-19 07:12 | XRay Report ---
SINGLE VIEW CHEST CLINICAL HISTORY: Chest tube removal. FINDINGS: 2 AP, portable, upright chest radiographs are compared to study dated 01/18/2024 and correlat ed with chest CT dated 01/14/2024. The cardiomediastinal silhouette is unremarkable noting atherosclero tic calcification of the thoracic aorta. A chest tube at the right lung base has been removed. There is a small right pleural effusion with consolidation at the right lung base. Fluid is seen tracking a long the right-sided fissures. The left lung appears clear. No pneumothorax is seen. The skeletal str uctures are osteopenic. The bony thorax is grossly intact. IMPRESSION: 1. A right-sided chest tube has been removed. No pneumothorax is seen. 2. A pleural effusion at the right lung base and right basilar consolidation persists. ACT 112: Negative or not required by law. Electronically signed by: Scotty Javier M.D. 01/19/2024 7:10 AM
[2024-01-19] MEDS: APIXABAN 5 MG TABLET PO SCH (09:28)
[2024-01-19] MEDS: oxyCODONE HCL IR 5 MG TAB (IMMEDIATE RELEASE) PO PRN (09:35)
--- NOTE | 2024-01-19 09:57 | Discharge Summary ---
Date of Service January 19, 2024 Admission HPI Per Admitting Provider Scotty is a 63-year-old male inmate at [facility] with a PMH significant for DMII and adjustment disorder who presented to the [facility] ED on 01/05/2024 with complaints of generalized weakness and shortness of breath. On arrival to the emergency department he was noted to be tachycardic with heart rate in the 120's but otherwise stable. Labs were significant for a leukocytosis of 20 with neutrophil predominance of 17, INR 1.2, VBG pH of 7.36 With pCO2 25-21, creatinine of 3.98 (last known baseline per [facility] is 0.95 as of 2021), BUN of 74, anion gap of 27 with bicarb of 12, potassium and sodium within normal limits, initial lactate of 10, magnesium 2.7, AST of 32, alk phos 117, initial high-sensitivity troponin COVID- 19/influenza/RSV screens negative. In the emergency department the patient was given 2 L normal saline and a dose of Zosyn. Patient was lying in bed in no acute distress at the time of exam. States that he has been having increased glucose levels and poor oral intake over the past 72 hours. [place] generally weak this a.m., also noted shortness of breath. When asked, he denies recent fever/chills, chest pain, productive cough, nausea/vomiting, abdominal pain, dysuria, hematuria, diarrhea bloody bowel lower extremity swelling, and recent trauma. He did note right back/flank pain yesterday,he is currently asymptomatic. He denies a previous history of atrial fibrillation, and notes that normally he is able to urinate without issue but has noticed that it is is not have the urge to void today. He denies history of major bleeding and is in agreement with IV heparin drip atrial fibrillation. I [facility] and [facility], they confirmed that his past medical history consists of type 2 diabetes mellitus and adjustment disorder. Georgina bailey state that this morning after receiving his insulin, he became very weak and pale which is why he was brought to the emergency department. Per the records, his baseline creatinine is 0.95 as of 2021. Principal Diagnosis sepsis from empyema Discharge Exam General: In no acute distress HEENT: Normocephalic, atraumatic Chest/Pulm: CTA throughout/ chest tube placed. Cardiac: irregular rate and rhythm, no murmurs noted Abdomen: Negative for ascites and bruising, normoactive bowel sounds, soft, Extremities: Radial, dorsalis pedis, and posterior tibial pulses are intact and symmetrical, no edema noted in the BL LE's Discharge Data Allergies Allergy/AdvReac Type Severity Reaction Status Date / Time Fish Containing Products Allergy Anaphylaxis Verified 01/05/24 12:50 metformin AdvReac Anaphylaxis Verified 01/05/24 12:48 Consultations 01/05/24 11:02 ED Decision to Admit Stat 01/05/24 11:39 Consult Cardiology Routine 01/05/24 11:45 Consult Nephrology Routine 01/05/24 12:38 Consult Pulmonology Routine 01/05/24 14:06 Consult Shoe Stamper Routine 01/05/24 17:43 Consult Urology Routine 01/09/24 13:47 Consult Infectious Diseases Routine Ordered Studies 01/05/24 11:36 CT Abd and Pelvis [CT abd pelvis wo con] Stat 01/05/24 15:28 US point of care ultrasound Stat 01/08/24 08:50 CT chest diagnostic wo con Routine 01/14/24 09:03 CT chest diagnostic wo con Routine Hospital Course (1) Sepsis: Presented from [facility] due to multiple days of poor oral intake, hyperglycemia, and generalized weakness Found to be in new onset atrial fibrillation with HR in the 120's, with WBC of 20, with right lower lobe pneumonia on CXR and with empyema With lactic acidosis with lactate of 10 and procalcitonin elevated at 50 Patient with chest tubes placed in 2 different loculated empyemas, underwent MIST 2 protocols and had improvement, chest tubes now removed Pleural effusion fluid culture grew Streptococcus intermedius Sepsis has now resolved, leukocytosis improving but not resolved, procalcitonin and CRP both trending downward, remains afebrile Infectious disease following-recommends 4 to 6 weeks of antibiotics. PULM recommends 6 weeks. Have now transitioned Unasyn to Augmentin and should have repeat chest imaging in 4 weeks-last day of treatment 02/16/24 Follow CBC, CMP once weekly while on antibiotics Elevated LFTs-likely related to sepsis on admission and empyema/proximity to r ight sided empyema (2) Empyema: As above, continue antibiotics, s/p chest tubes x 2 and MIST 2 protocol. CXRs improving Appreciate pulmonology management Chest tubes now removed Needs repeat chest CT in 4 weeks (3) Atrial fibrillation with rapid ventricular response: Patient found to be in new-onset afib RVR with HR in the 120's on arrival and spontaneously converted to sinus rhythm shortly after admission Keep electrolytes replete-give po KCl today Started metoprolol 25 Mg p.o. twice daily-lowered parameters to hold for heart rate less than 55 Continue to monitor on telemetry Held Eliquis until after done with mist 2 protocol, had bloody drainge from chest tubes--> confirmed [facility] that Eli[facility] available [facility]--> start Eliquis in AM on 01/18 Discussed diagnosis and management with patient-he was unaware of this as a diagnosis Chadsvasc score is 2, echo here with low normal EF 50-55%, no other abnormal ities (4) Acute renal failure: Cr of 3.98 on admission and now continues to be improving to [address] stable CT abdomen/pelvis 01/04 negative for obstruction Continues to be making urine, Garcia catheter now removed and voiding completely Appreciate nephrology consultation-MARY likely ATN related to sepsis, pneumonia, and new onset atrial fibrillation 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 This may be his new baseline renal function-does have long h/o DM FOllow BMP as outpt Nephrology has signed off (5) Elevated troponin: Initial high sen trop elevated at 57 and repeat troponin a few hours later up to 86.3, was not repeated after that Echocardiogram without wall motion abnormalities, no chest pain or ECG changes consistent with ischemia Likely due to demand ischemia with sepsis, acute renal failure, and afib RVR on arrival (6) DM II (diabetes mellitus, type II), controlled: Holding home insulin regimen of regular and Novolin R Continue Lantus and NovoLog as needed, pharmacy managing Plan Hyperlipidemia- Continue rosuvastatin, can now resume home aspirin now that mist 2 protocol complete Depression/anxiety-continue home mirtazapine Constipation-improved on 01/13, continue senna/docusate prn [facility] has been updated. Total Time Total Time Spent Total Time Spent (In Minutes): 32 Discharge Plan Discharge Items [facility] Reason For Visit: SEPSIS, AFIB RVR, ELEVATED TROPONIN, RENAL FAILURE Discharge Diagnosis: sepsis, a fib rvr Activity: Resume your previous activity Non-emergency contact: Primary Care Provider Call non-emergency contact if: you have any medication questions Follow-up/Referrals: Ed FELIX [Primary Care Provider] - Diet: Carb Consistent or DM2 Addtl Attending Provider Instructions: Sepsis: Plan: Presented from [facility] due to multiple days of poor oral intake, hyperglycemia, and generalized weakness Found to be in new onset atrial fibrillation with HR in the 120's, with WBC of 20, with right lower lobe pneumonia on CXR and with empyema With lactic acidosis with lactate of 10 and procalcitonin elevated at 50 Patient with chest tubes placed in 2 different loculated empyemas, underwent MIST 2 protocols and had improvement, chest tubes now removed Pleural effusion fluid culture grew Streptococcus intermedius Sepsis has now resolved, leukocytosis improving but not resolved, procalcitonin and CRP both trending downward, remains afebrile Infectious disease following-recommends 4 to 6 weeks of antibiotics. PULM recommends 6 weeks. Have now transitioned Unasyn to Augmentin and should have repeat chest cat scan imaging in 4 weeks-last day of treatment 02/16/24 Follow CBC, CMP once weekly while on antibiotics Pending Studies at Discharge: No Stand-Alone Forms: My [facility] Skilled Items Patient informed of condition?: Yes Discharge Level of Care: Other Communicable Disease: No Discharge Prognosis: Stable Lines: None Urinary Catheter: No Medications and DC Order Prescriptions: New amoxicillin-pot clavulanate 875-125 mg Tablet 1 tab PO BID 28 Days Qty: 58 0RF Eliquis 5 mg Tablet 5 mg PO BID Qty: 0 0RF metoprolol succinate 25 mg tablet extended release 24 hr 25 mg PO PM Qty: 30 0RF insulin glargine [Lantus U-100 Insulin] 100 unit/mL Solution 12 unit SC QAM Qty: 10 0RF Continued mirtazapine 30 mg Tablet 30 mg PO HS rosuvastatin 20 mg Tablet 20 mg PO DAILY Novolin R Regular U100 Insulin 1 unit subcut .SLIDING SCALE PRN (Reason: Other) Rx Instructions: 200-250=2u; 251-300=4u; 301-350=6u; 351-400=8u; >400=10u and call prn Discontinued aspirin [Aspir-81] 81 mg Tablet,Delayed Release (Dr/Ec) 81 mg PO DAILY Novolin R 100u 15 unit subcut DAILY Discharge Orders: Discharge Order (Routine); Ordered 01/19/24 Ordered By: Melecio Cool/Other Patient Handouts: Managing Type 2 Diabetes Admission Data Admit Date/Time: 01/05/24 11:21 Attending Provider: Melecio Trinidad Admit Provider: Melecio Trinidad Primary Care Provider: Ed FELIX Other Providers: Chi Selby; Melecio Trinidad; Sherman Shin; Amauri Armenta; Yessica Portillo; Karoline Avelar; Marcy Strickland; Javy Valente; Dotty Yost; Vinita Bragg Other Interventions: Discharge Summary Assessment (RN) Last Done: 01/19/24 11:08 Coding Level of Care Code 47597 INP/OBS DISCH >30 MIN Diagnoses Sepsis A41.9 Sepsis acute organ dysfunction status: unspecified Sepsis type: sepsis due to unspecified organism Empyema J86.9 Atrial fibrillation with rapid ventricular response I48.91 Acute renal failure N17.9 Elevated troponin R79.89 DM II (diabetes mellitus, type II), controlled E11.9
== END 2024-01-19 15:30 | DRG 871 ==
LOC: ED 09:15 → EDINP 11:21 → SUATTDRO 11:21 → EDINP 12:48 → 1E 16:25 → 4W 01-07 14:33
DX: J18.9 Pneumonia, unspecified organism; A41.9 Sepsis, unspecified organism; K59.00 Constipation, unspecified; I48.91 Unspecified atrial fibrillation; F43.20 Adjustment disorder, unspecified; N17.0 Acute kidney failure with tubular necrosis; B95.5 Unspecified streptococcus as the cause of diseases classified elsewhere; E86.0 Dehydration; Z79.82 Long term (current) use of aspirin; J90 Pleural effusion, not elsewhere classified; Z79.4 Long term (current) use of insulin; I24.89 Other forms of acute ischemic heart disease; E78.5 Hyperlipidemia, unspecified; E11.65 Type 2 diabetes mellitus with hyperglycemia; E87.20 Acidosis, unspecified; R33.9 Retention of urine, unspecified; Z87.891 Personal history of nicotine dependence; J86.9 Pyothorax without fistula